=== PATIENT | female | born 1970 | race Caucasian/White ===

== ENCOUNTER → 2016-07-19 | Outpatient (CLI) | payer OTHER ==
--- NOTE | 2016-07-19 14:21 | MM ---
Reason for exam: screening (asymptomatic). Last mammogram was performed 1 year and 3 months ago. History: Patient had first child at age 33. Family history of breast cancer in maternal aunt at age 70. Benign excisional biopsy of the left breast. Physical Findings: A clinical breast exam by your physician is recommended on an annual basis and results should be correlated with mammographic findings. MG Screening Mammo w CAD Bilateral CC and MLO view(s) were taken. Prior study comparison: April 10, 2015, bilateral MG 3d diag mammo w/cad [facility]. December 02, 2013, bilateral MG diagnostic mammo w CAD [facility]. The breast tissue is heterogeneously dense. This may lower the sensitivity of mammography. Asymmetric breast tissue in the left upper outer quadrant is stable. There is no discrete abnormality. ASSESSMENT: Negative, BI-RAD 1 RECOMMENDATION: Routine screening mammogram of both breasts in 1 year.
== END | disposition home or self-care (01) ==
LOC: RADMAMWWP 11:36
PROVIDERS: ATTEND Family Medicine
DX: Z12.31 Encounter for screening mammogram for malignant neoplasm of breast (principal)

== ENCOUNTER → 2016-10-01 | Outpatient (CLI) | payer OTHER ==
--- NOTE | 2016-10-01 15:44 | XR ---
EXAMINATION TYPE: XR foot complete RT DATE OF EXAM: 10/01/2016 3:11 PM CLINICAL HISTORY: pain TECHNIQUE: Frontal, lateral and oblique images of the right foot are obtained. COMPARISON: None. FINDINGS: There is no acute fracture/dislocation evident. The joint spaces appear within normal bishop its. The overlying soft tissue appears unremarkable. IMPRESSION: There is no acute fracture or dislocation. ICD 10 NO FRACTURE, INITIAL EVALUATION
== END | disposition home or self-care (01) ==
LOC: RADXRMAIN 14:57
PROVIDERS: ATTEND Family Medicine
DX: M79.671 Pain in right foot (principal)

== ENCOUNTER → 2016-12-11 | Outpatient (CLI) | payer OTHER ==
[2016-12-11 15:31] LABS: Basophils % (A) 0 %; CH 32.2; CHCM 33.7; Eosinophils # (A) 0.1 k/uL (0-0.7); Eosinophils % (A) 1 %; HCT 47.9 % (34.0-46.0); HDW 2.22; HGB 15.6 gm/dL (11.4-16.0); Luc # (Auto) 0.04; Luc % (Auto) 0; Lymphocytes # (A) 0.7 k/uL (1.0-4.8); Lymphocytes % (A) 6 %; MCH 31.2 pg (25.0-35.0); MCHC 32.5 g/dL (31.0-37.0); MCV 95.8 fL (80.0-100.0); Monocytes # (A) 0.1 k/uL (0-1.0); Monocytes % (A) 1 %; Neutrophils # (A) 11.3 k/uL (1.3-7.7); Neutrophils % (A) 92 %; WBC 12.3 k/uL (3.8-10.6); WBC (Perox) 11.66
[2016-12-11 15:50] LABS: ALT 48 U/L (9-52); AST 32 U/L (14-36); Alkaline Phosphatase 80 U/L (38-126); Anion Gap 14 mmol/L; Blood Urea Nitrogen 8 mg/dL (7-17); Calcium 10.4 mg/dL (8.4-10.2); Carbon Dioxide 24 mmol/L (22-30); Chloride 103 mmol/L (98-107); Glucose 220 mg/dL (74-99); Non-African American GFR(MDRD) >60 (>60 ml/min/1.73 sqM); Potassium 4.3 mmol/L (3.5-5.1); Sodium 141 mmol/L (137-145); Total Bilirubin 0.7 mg/dL (0.2-1.3); Total Protein 7.6 g/dL (6.3-8.2)
[2016-12-11 16:40] LABS: Vitamin B12 >1000 pg/mL (239-931)
== END | disposition home or self-care (01) ==
LOC: LABWHC1 15:05
PROVIDERS: ATTEND Nurse Practitioner Acute Care
DX: G35 Multiple sclerosis (principal); E55.9 Vitamin D deficiency, unspecified
CPT/HCPCS: 36415; 80053; 82306; 82607; 84439; 84443; 84481; 85025

== ENCOUNTER → 2016-12-12 | Outpatient (CLI) | payer OTHER ==
--- NOTE | 2016-12-12 14:20 | MR ---
EXAMINATION TYPE: MR lumbar spine wo con DATE OF EXAM: 12/12/2016 COMPARISON: Previous exam 03/16/2014 HISTORY: Low back pain TECHNIQUE: Multiplanar, multisequence images of the lumbar spine were acquired. L1-L2: Normal disc appearance without desiccation. No herniation, protrusion or disc bulging. No ca nal stenosis is present. Foramina are patent bilaterally. L2-L3: Normal disc appearance without desiccation. No herniation, protrusion or disc bulging. No ca nal stenosis is present. Foramina are patent bilaterally. L3-L4: Minimal posterior broad-based disc bulge is stable. There is only mild anterior mass effect on the thecal sac. L4-L5: Minimal anterolisthesis grade 1 L4-5, there is associated loss of disc height and signal, endp late discogenic marrow signal change and spondylosis. Facet arthropathy with hypertrophy of the ligam entum flavum contributes to cause some mild central stenosis, encroachment on the lateral recesses tr efoil appearance of the thecal sac as on previous, foraminal encroachment is stable. L5-S1: Facet arthropathy changes present. No significant change in the appearance of the neural penny samia, circumferential extension of endplate disc complex encroaches mildly, there is no significant ce ntral stenosis or evident disc herniation. Lumbar segments are intact. No paraspinal masses are identified. Conus medullaris has a normal appe arance. There is a mild levoscoliosis present. IMPRESSION: Levoscoliosis. Findings are essentially stable. Degenerative disc disease. Spondylolisthesis L4-5. Mu ltilevel facet arthropathy.
--- NOTE | 2016-12-15 22:55 | MR ---
EXAMINATION TYPE: MR brain/cspine wo/w DATE OF EXAM: 12/12/2016 COMPARISON: 01/17/2016 and MRI 03/02/2013 HISTORY: 46-year-old female, follow-up MS, neck pain, Cervicalgia TECHNIQUE: Multiplanar, multisequence images of the brain and brainstem is performed without and with IV contras t, utilizing 18 mL intravenous MultiHance gadolinium contrast is administered intravenously. Demyeli nating disease protocol with additional Sagittal Flair sequence performed. Subsequently, multiplanar, multisequence images of the cervical spine before and after IV contrast. A dditional sagittal PD sequences utilized. FINDINGS: BRAIN: T2 Lesions Present : Yes Approximate Number of Lesions: Severe confluent burning, difficult to count number of lesions due to confluent nature of white matter change. Locations Identified : Pericallosal, Periventricular, and juxtacortical. No infratentorial lesions ar e seen. Size of Reference Lesion(s): 1. The previously mentioned reference lesion in the right frontal centrum semiovale is stable but cou ld measure greater than or less than 1.5 cm depending on the exact slice utilized. Enhancing Lesion(s) Present: No T1 Hypointense Lesion(s) Present: Yes Change from Prior: Stable. Diffusion weighted images demonstrate no evidence of a recent infarct or other diffusion abnormality. There is no worrisome extra-axial fluid collection. The ventricular system and cisternal spaces ar e normal in size and appearance. The brain volume is age appropriate. The T2 bright gliosis along the patient's previous right frontal shunt tract is again noted. Midline structures demonstrate normal morphology. The craniocervical junction appears within normal limits. Post contrast images demonstrate no abnormal enhancement. The dural venous sinuses appear pa tent. Tiny polyp or mucosal retention cyst within the inferior right maxillary sinus. Globes are intact. Back to 2012, the thickening along the posterior aspect of the right frontal calvarium with overlying protuberance of the scalp and adjacent zara hole are unchanged. CERVICAL SPINE: No craniocervical junction abnormality, predental space widening, or prevertebral soft tissue swellin g. There is facet and uncovertebral joint arthropathy throughout with levels of ligamentum flavum thicke or[place] particularly at C5-T1 levels. Degenerative grade 1 retrolisthesis at C5-C6. There is moderate multilevel degenerative disc disease with a degenerated, desiccated, invariably mil dly narrowed discs with disc osteophyte complex formation. At C2-C3, there is uncovertebral joint and facet arthropathy slightly greater towards the left withou t significant spinal canal or neuroforaminal stenosis. At C3-C4, there is posterior disc osteophyte complex with left greater than right facet and uncoverte bral joint arthropathy. Changes result in moderate left neuroforaminal stenosis with very mild narrow ing of the spinal canal. There is abutment and minimal flattening of the ventral cord without cord co mpression. At at C4-C5, there is disc osteophyte complex with mild facet and uncovertebral joint degenerative ch sharona, greater on the left. Changes mildly narrow the left neural foramen. No significant spinal canal stenosis. At C5-C6, there is grade 1 retrolisthesis and combination of broad-based disc osteophyte complex with uncovertebral joint and facet arthropathy as well as ligamentum flavum thickening. Changes resulting in moderate narrowing of the spinal canal with AP canal dimension of 7.6 mm. There is abutment of julio th the dorsal and ventral cord without germaine cord compression. Changes result in moderate left and mi ld right neuroforaminal stenosis. At C6-C7, there is broad-based disc osteophyte complex with ligamentum flavum thickening and facet an d uncovertebral joint arthropathy, greater on the right. Changes result in severe right and moderate to severe left neuroforaminal stenosis with mild to moderate spinal canal stenosis with AP canal dime nsion of 8.0 mm. There is abutment of both the dorsal and ventral cord without germaine cord compression . At C7-T1, there is small disc osteophyte complex with uncovertebral joint and facet degenerative ocampo ge. This results in mild bilateral neuroforaminal stenosis without significant spinal canal stenosis. Allowing for motion artifact, no discrete T2 cord signal abnormality. No abnormal enhancement seen wi thin the spinal canal. Sagittal PD sequence shows no clear cord edema. COMBINED IMPRESSION: BRAIN: 1. Stable severe confluent burden of supratentorial white matter change in keeping with the patient's multiple sclerosis. No clearly new lesions or enhancing lesions are seen. 2. Stable bony deformity to the patient's right frontal calvarium with adjacent zara hole. CERVICAL SPINE: 1. Combination of moderate disc/endplate degenerative change with disc osteophyte complex formation a nd hypertrophic facet and uncovertebral joint arthropathy with ligamentum flavum thickening. 2. Degenerative grade 1 retrolisthesis at C5-C6. 3. Changes cause the spinal canal to be tight particularly from C5 through C7 levels where there are moderate spinal canal stenoses with abutment of both the dorsal and ventral cord. No germaine cord compr ession or discrete cord signal change. 4. Variable neuroforaminal stenoses as outlined above. Narrowing at C5-C6 is moderate on the left and at C6/C7 is severe on the right and moderate to severe on the left.
== END | disposition home or self-care (01) ==
LOC: RADMRIMAIN 12:31
PROVIDERS: ATTEND Nurse Practitioner Acute Care
DX: M43.12 Spondylolisthesis, cervical region (principal); M48.03 Spinal stenosis, cervicothoracic region; M99.71 Connective tissue and disc stenosis of intervertebral foramina of cervical region; M24.28 Disorder of ligament, vertebrae; M47.812 Spondylosis without myelopathy or radiculopathy, cervical region; M51.36 Other intervertebral disc degeneration, lumbar region; M46.96 Unspecified inflammatory spondylopathy, lumbar region; M43.16 Spondylolisthesis, lumbar region; R90.82 White matter disease, unspecified; M95.9 Acquired deformity of musculoskeletal system, unspecified; M41.26 Other idiopathic scoliosis, lumbar region; G35 Multiple sclerosis; Z88.1 Allergy status to other antibiotic agents
CPT/HCPCS: 70553; 72148; 72156; A9577

== ENCOUNTER → 2017-04-22 | Outpatient (CLI) | payer OTHER ==
[2017-04-22 12:40] LABS: Basophils % (A) 0 %; CHCM 32.1; Eosinophils # (A) 0.6 k/uL (0-0.7); Eosinophils % (A) 8 %; HCT 48.7 % (34.0-46.0); HDW 2.24; HGB 15.3 gm/dL (11.4-16.0); Luc # (Auto) 0.14; Luc % (Auto) 2; Lymphocytes # (A) 0.7 k/uL (1.0-4.8); Lymphocytes % (A) 10 %; MCH 30.4 pg (25.0-35.0); MCHC 31.3 g/dL (31.0-37.0); Mean Platelet Volume 7.1; Monocytes # (A) 0.6 k/uL (0-1.0); Monocytes % (A) 8 %; Neutrophils % (A) 72 %; RBC 5.01 m/uL (3.80-5.40); RDW 14.5 % (11.5-15.5); WBC 6.9 k/uL (3.8-10.6); WBC (Perox) 6.67
[2017-04-22 12:58] LABS: ALT 49 U/L (9-52); AST 35 U/L (14-36); Alkaline Phosphatase 67 U/L (38-126); Anion Gap 8 mmol/L; Blood Urea Nitrogen 13 mg/dL (7-17); Calcium 9.6 mg/dL (8.4-10.2); Carbon Dioxide 32 mmol/L (22-30); Chloride 99 mmol/L (98-107); Glucose 109 mg/dL (74-99); Non-African American GFR(MDRD) >60 (>60 ml/min/1.73 sqM); Potassium 3.9 mmol/L (3.5-5.1); Sodium 139 mmol/L (137-145); Total Bilirubin 0.4 mg/dL (0.2-1.3); Total Protein 6.8 g/dL (6.3-8.2)
== END | disposition home or self-care (01) ==
LOC: LABWHC1 12:18
PROVIDERS: ATTEND Physician Assistant
DX: E55.9 Vitamin D deficiency, unspecified (principal); G35 Multiple sclerosis
CPT/HCPCS: 36415; 80053; 82306; 82607; 84439; 84443; 84481; 85025

== ENCOUNTER → 2017-05-07 | Outpatient (CLI) | payer OTHER ==
--- NOTE | 2017-05-07 15:57 | MR ---
EXAMINATION TYPE: MR thoracic spine wo/w con DATE OF EXAM: 05/07/2017 COMPARISON: MR brain and C-spine dated 12/12/2016. HISTORY: multiple sclerosis CONTRAST: Standard multiplanar, multisequence MRI departmental protocol utilizing 9.5 mL intravenous Gadavist g adolinium contrast. FINDINGS: A subcentimeter vertebral body hemangioma that is T1 and T2 hyperintense is seen of the superior aspe ct of the T7 vertebral body. Remainder of the bone marrow is unremarkable and within normal limits. T he thoracic vertebral bodies maintain normal vertebral body height and alignment. There is mild multi level degenerative disc disease of the thoracic spine. At T1-T6 there is no evidence of significant d isc disease, neuroforaminal stenosis or spinal canal stenosis. At T6-T7 there is a central subligamentous disc protrusion/herniation with 5 mm cranial migration eff acing the ventral subarachnoid space creating mild spinal canal stenosis. No abnormal spinal cord sig nal is seen posterior to this. No neural foraminal narrowing. At T7-T10 there is no evidence of significant disc disease, neuroforaminal stenosis or spinal canal s tenosis. At T10-T11 there is a left eccentric broad-based disc bulge creating mild left neural foraminal narro wing with annular tear. No spinal canal stenosis or right neural foraminal narrowing. At T11-T12 there is facet arthropathy and ligamentum flavum buckling as well as a broad-based left ec centric disc bulge creating mild left neural foraminal narrowing. Right neural foramen and spinal can al are patent. At T12-L1 there is no evidence of significant disc disease, neuroforaminal stenosis or spinal canal stenosis. Spinal cord maintains normal signal through its visualized course. No abnormal enhancement is seen th roughout the examination, specifically within the spinal cord to indicate active demyelinating plaque . IMPRESSION: 1. No abnormal enhancement or abnormal cord signal to suggest demyelinating plaque. 2. Small central disc herniation at T6-T7 with 5 mm radial migration creating mild spinal canal steno sis. 3. Left eccentric broad-based disc bulge and annular tear at T10-T11 creating mild left neural forami nal narrowing. 4. Facet arthropathy and broad-based left eccentric disc bulge at T11-T12 resulting in mild left neur al foraminal narrowing.
== END | disposition home or self-care (01) ==
LOC: RADMRIMAIN 11:15
PROVIDERS: ATTEND Nurse Practitioner Acute Care
DX: M48.04 Spinal stenosis, thoracic region (principal); M51.24 Other intervertebral disc displacement, thoracic region; M99.72 Connective tissue and disc stenosis of intervertebral foramina of thoracic region; M46.96 Unspecified inflammatory spondylopathy, lumbar region; Z88.1 Allergy status to other antibiotic agents
CPT/HCPCS: 72157; A9581

== ENCOUNTER → 2017-10-03 | Outpatient (CLI) | payer OTHER ==
[2017-10-03 11:00] LABS: Basophils % (A) 0 %; Eosinophils # (A) 0.4 k/uL (0-0.7); Eosinophils % (A) 4 %; HCT 47.9 % (34.0-46.0); HGB 15.7 gm/dL (11.4-16.0); Lymphocytes # (A) 0.7 k/uL (1.0-4.8); Lymphocytes % (A) 8 %; MCH 30.9 pg (25.0-35.0); MCHC 32.7 g/dL (31.0-37.0); MCV 94.3 fL (80.0-100.0); Mean Platelet Volume 7.4; Monocytes # (A) 0.6 k/uL (0-1.0); Monocytes % (A) 7 %; Neutrophils # (A) 6.7 k/uL (1.3-7.7); Neutrophils % (A) 79 %; Platelet Count 273 k/uL (150-450); RBC 5.08 m/uL (3.80-5.40); WBC 8.5 k/uL (3.8-10.6)
[2017-10-03 11:06] LABS: Appearance,Urine Clear (Clear); Bilirubin,Urine Negative (Negative); Blood,Urine Negative (Negative); Color,Urine Yellow; Glucose,Urine (UA) 2+ (Negative); Ketones,Urine Negative (Negative); Leukocyte Esterase,Urine Negative (Negative); Nitrite,Urine Negative (Negative); Protein,Urine Negative (Negative); Specific Gravity,Urine 1.009 (1.001-1.035); Urobilinogen,Urine <2.0 mg/dL (<2.0)
[2017-10-03 11:09] LABS: ALT 33 U/L (9-52); AST 26 U/L (14-36); Albumin 4.6 g/dL (3.5-5.0); Alkaline Phosphatase 63 U/L (38-126); Anion Gap 13 mmol/L; Blood Urea Nitrogen 16 mg/dL (7-17); Calcium 10.5 mg/dL (8.4-10.2); Carbon Dioxide 28 mmol/L (22-30); Chloride 102 mmol/L (98-107); Glucose 101 mg/dL (74-99); Potassium 4.5 mmol/L (3.5-5.1); Sodium 143 mmol/L (137-145); Total Bilirubin 0.4 mg/dL (0.2-1.3); Total Protein 7.1 g/dL (6.3-8.2)
== END | disposition home or self-care (01) ==
LOC: LABWHC1 09:56
PROVIDERS: ATTEND Nurse Practitioner Acute Care
DX: G35 Multiple sclerosis (principal); E55.9 Vitamin D deficiency, unspecified
CPT/HCPCS: 36415; 80053; 81003; 82306; 85025; 87086

== ENCOUNTER → 2017-12-24 | Outpatient (CLI) | payer OTHER ==
[2017-12-24 13:23] LABS: HCT 48.1 % (34.0-46.0); MCHC 33.4 g/dL (31.0-37.0); Mean Platelet Volume 6.7; Platelet Count 260 k/uL (150-450); RBC 5.01 m/uL (3.80-5.40); RDW 13.9 % (11.5-15.5); WBC 10.7 k/uL (3.8-10.6)
[2017-12-24 14:16] LABS: ALT 40 U/L (9-52); AST 28 U/L (14-36); Albumin 4.6 g/dL (3.5-5.0); Alkaline Phosphatase 57 U/L (38-126); Anion Gap 13 mmol/L; Blood Urea Nitrogen 13 mg/dL (7-17); Calcium 9.6 mg/dL (8.4-10.2); Carbon Dioxide 25 mmol/L (22-30); Chloride 102 mmol/L (98-107); Glucose 123 mg/dL (74-99); Potassium 4.1 mmol/L (3.5-5.1); Sodium 140 mmol/L (137-145); Total Bilirubin 0.9 mg/dL (0.2-1.3)
== END | disposition home or self-care (01) ==
LOC: LABWHC1 12:33
PROVIDERS: ATTEND Nurse Practitioner Acute Care
DX: G35 Multiple sclerosis (principal)
CPT/HCPCS: 36415; 80053; 82607; 85027

== ENCOUNTER → 2017-12-27 | Outpatient (CLI) | payer OTHER ==
--- NOTE | 2017-12-27 09:53 | MR ---
EXAMINATION TYPE: MR brain/cspine wo/w DATE OF EXAM: 12/27/2017 COMPARISON: Previous study dated 12/12/2016. HISTORY: MS TECHNIQUE: Multiplanar, multisequence images of the brain and brainstem is performed without and with IV contras t, utilizing 9.5 mL intravenous Gadavist gadolinium contrast is administered intravenously. Demyelin ating disease protocol with additional Sagittal Flair sequence performed. FINDINGS: T2 Lesions Present : Yes Approximate Number of Lesions: Greater than 20 Locations Identified : Periventricular and juxtacortical Size of Reference Lesion(s): 1. The lesions are too confluent to make accurate measurements. Enhancing Lesion(s) Present: No T1 Hypointense Lesion(s) Present: Yes Change from Prior: Slight increase Structures are unremarkable. There is a normal craniocervical junction. There is persistent right fro ntal scalp swelling and there are zara holes in the right frontal region. Echoplanar diffusion imaging is normal. There are normal vascular flow voids. The orbits are unremarkable. There is no evidence of a CP angle mass lesion. There is no mass effect, midline shift or intracranial blood. Following intravenous administration of gadolinium, I do not see evidence of abnormal enhancement. IMPRESSION: VERY MINIMAL INCREASE IN THE NUMBER OF MULTIPLE SCLEROSIS PLAQUES PRESENT BILATERALLY. CERVICAL SPINE: administration of 9.5 of Gadavist on a 1.5 diamond magnet. FINDINGS: The study is compromised by patient motion artifact. Prevertebral soft tissues are normal. There is a degenerative retrograde listhesis of C5 on C6, unchanged from previous. Alignment is other charles normal. Atlantoaxial relationships are normal. There is a normal craniocervical junction. I see no definite MS plaques. At C2-C3, no definite abnormality is seen. At C3-C4, there is left intervertebral foraminal narrowing. There is a diffuse disc displacement. The re is left-sided facet arthropathy. The uncovertebral joints are unremarkable. At C4-C5, there is mild disc space loss. There is mild, bilateral intervertebral foraminal narrowing. There is a diffuse disc displacement. There is left-sided facet arthropathy. At C5-C6, there is a retrograde listhesis of C3 5 on C6. There is bilateral intervertebral frontal na rrowing, much worse on the left than the right. There is left facet joint arthropathy. There is a mix ed spondylitic bar present posteriorly deforming the thecal sac with cord contact but without akua tanika. There is mild uncovertebral joint disease. At C6-C7, there is disc space loss. There is bilateral intervertebral foraminal narrowing. There is a mixed spondylitic bar present posteriorly deforming the thecal sac with cord contact but without def inite compression. There is left facet arthropathy. There is mild uncovertebral joint disease. At C7-T1, no definite abnormality is seen. IMPRESSION: 1. NO DEFINITE MULTIPLE SCLEROSIS PLAQUES. 2. DEGENERATIVE DISC DISEASE WITH NEXT SPONDYLOTIC BARS PRESENT AT C5-6 AND C6-7. 3. MULTILEVEL INTERVERTEBRAL FORAMINAL NARROWING. 4. FACET ARTHROPATHY AT MULTIPLE LEVELS GREATER ON THE LEFT THAN THE RIGHT.
== END | disposition home or self-care (01) ==
LOC: RADMRIMAIN 08:00
PROVIDERS: ATTEND Psychiatry & Neurology Neurology
DX: G35 Multiple sclerosis (principal); M50.30 Other cervical disc degeneration, unspecified cervical region; M47.812 Spondylosis without myelopathy or radiculopathy, cervical region; M99.71 Connective tissue and disc stenosis of intervertebral foramina of cervical region; M46.92 Unspecified inflammatory spondylopathy, cervical region; Z88.1 Allergy status to other antibiotic agents
CPT/HCPCS: 70553; 72156; A9581

== ENCOUNTER → 2018-02-19 | Outpatient (CLI) | payer OTHER ==
--- NOTE | 2018-02-19 12:07 | CT ---
EXAMINATION TYPE: CT abdomen pelvis wo con DATE OF EXAM: 02/19/2018 COMPARISON: 05/29/2017 HISTORY: 47-year-old female Lt flank pain, LLQ pain CT DLP: 1228 mGycm. Automated exposure control for dose reduction was used. TECHNIQUE: Contiguous axial scanning of the abdomen and pelvis without IV contrast. Coronal and sagit desean reconstructions performed. FINDINGS: Heart normal size without pericardial effusion. Strandy atelectasis right base. No pleural effusion. Liver enlarged measuring 20.9 cm with marked diffuse low-attenuation. Gallbladder, adrenal glands, spleen, and pancreas show no gross abnormality by noncontrast CT. Stable 4 mm focus of hyperdensity lateral mid left kidney could represent a tiny hemorrhagic cyst. Ri ght kidney within normal limits. No dilated small bowel, free fluid, or free air. No mesenteric or retroperitoneal lymphadenopathy. Normal appendix. Mild stool burden there is focal strandy density along the left lateral aspect of the proximal sigmoi d with central fat density, reference axial image 127 and coronal image 34. Bladder urine distended. Uterus and ovaries are visualized. No abnormal fluid collection in the pelvi s or pelvic lymphadenopathy. Bones: Mild degenerative spurring of the hips. Facet arthropathy lower lumbar spine. No osseous destr uctive process. IMPRESSION: 1. Small ovoid area of fat stranding along the left lateral aspect of the proximal sigmoid. If patie nt's symptoms localize here, this could represent epiploic appendagitis. 2. Hepatomegaly (20.9 cm) with marked hepatic steatosis.
== END | disposition home or self-care (01) ==
LOC: RADCTMAIN 08:01
PROVIDERS: ATTEND Family Medicine
DX: K76.0 Fatty (change of) liver, not elsewhere classified (principal); R16.0 Hepatomegaly, not elsewhere classified
CPT/HCPCS: 74176

== ENCOUNTER → 2018-04-09 | Outpatient (CLI) | payer OTHER ==
[2018-04-09 13:17] LABS: Appearance,Urine Clear (Clear); Bilirubin,Urine Negative (Negative); Blood,Urine Negative (Negative); Color,Urine Colorless; Glucose,Urine (UA) Negative (Negative); Ketones,Urine Negative (Negative); Leukocyte Esterase,Urine Negative (Negative); Nitrite,Urine Negative (Negative); PH, Urine 5.5 (5.0-8.0); Protein,Urine Negative (Negative); Specific Gravity,Urine 1.002 (1.001-1.035); Urobilinogen,Urine <2.0 mg/dL (<2.0)
[2018-04-09 13:31] LABS: Basophils # (A) 0.1 k/uL (0-0.2); Basophils % (A) 0 %; Eosinophils # (A) 0.7 k/uL (0-0.7); Eosinophils % (A) 5 %; HCT 42.7 % (34.0-46.0); HGB 13.4 gm/dL (11.4-16.0); Lymphocytes # (A) 3.3 k/uL (1.0-4.8); Lymphocytes % (A) 24 %; MCH 30.6 pg (25.0-35.0); MCHC 31.4 g/dL (31.0-37.0); MCV 97.4 fL (80.0-100.0); Mean Platelet Volume 6.3; Monocytes # (A) 0.6 k/uL (0-1.0); Monocytes % (A) 4 %; Neutrophils # (A) 8.8 k/uL (1.3-7.7); Neutrophils % (A) 64 %; Platelet Count 313 k/uL (150-450); RBC 4.39 m/uL (3.80-5.40); RDW 15.5 % (11.5-15.5); WBC 13.8 k/uL (3.8-10.6)
[2018-04-09 19:03] LABS: Vitamin D 25 Hydroxy 27.6 ng/mL (30.0-100.0)
[2018-04-09 19:04] LABS: Albumin 4.8 g/dL (3.80-4.90); Anion Gap 5.1 mmol/L (4.00-12.00); Calcium 9.4 mg/dL (8.7-10.3); Carbon Dioxide 26.9 mmol/L (21.6-31.8); Globulin 1.6 g/dL (2.1-3.7); Potassium 4.1 mmol/L (3.5-5.5); Total Bilirubin 0.6 mg/dL (0.2-1.2); Total Protein 6.4 g/dL (6.2-8.2)
== END | disposition home or self-care (01) ==
LOC: LABWHC1 12:23
PROVIDERS: ATTEND Nurse Practitioner Acute Care
DX: E55.9 Vitamin D deficiency, unspecified (principal); R53.83 Other fatigue; R39.81 Functional urinary incontinence; Z51.81 Encounter for therapeutic drug level monitoring
CPT/HCPCS: 36415; 80053; 81003; 82306; 82607; 84207; 85025

== ENCOUNTER → 2018-04-20 | Outpatient (CLI) | payer OTHER | LOC: LABWHC1 12:19 | PROVIDERS: ATTEND Nurse Practitioner Acute Care | DX: G35 Multiple sclerosis (principal) | CPT/HCPCS: 36415 ==

== ENCOUNTER → 2018-05-28 | Outpatient (CLI) | payer OTHER | END | disposition home or self-care (01) | LOC: LABWHC1 15:36 | PROVIDERS: ATTEND Psychiatry & Neurology Neurology | DX: Z51.81 Encounter for therapeutic drug level monitoring (principal) | CPT/HCPCS: 36415; 82565; 84520 ==

== ENCOUNTER 2018-06-05 19:06 | Emergency (ER) | payer OTHER ==
[2018-06-05 19:26] VITALS: BP 147/88; PULSE 97; RESP 16; TEMP 97.9
[2018-06-05] MEDS ORDERED: KETOROLAC 30 MG/ML 1 ML VIAL IM STA (20:19)
--- NOTE | 2018-06-05 21:09 | XR ---
EXAMINATION TYPE: XR ankle complete LT DATE OF EXAM: 06/05/2018 COMPARISON: NONE HISTORY: Ankle pain TECHNIQUE: 3 views FINDINGS: Ankle mortise is anatomic. I see no fracture nor dislocation. Joint spaces are normal. IMPRESSION: Negative left ankle exam.
--- NOTE | 2018-06-05 21:16 | XR ---
EXAMINATION TYPE: XR foot complete LT DATE OF EXAM: 06/05/2018 COMPARISON: NONE HISTORY: Foot pain TECHNIQUE: 3 views FINDINGS: Metatarsals are intact. I see no fracture nor dislocation. Joint spaces are normal. IMPRESSION: Negative left foot exam. Previous surgery noted apparently at the first metatarsal head.
[2018-06-05] MEDS ORDERED: FAMOTIDINE 20 MG TAB PO STA (21:26)
--- NOTE | 2018-06-05 21:28 | XR ---
EXAMINATION TYPE: XR chest 2V DATE OF EXAM: 06/05/2018 COMPARISON: 04/18/2017 HISTORY: Pain TECHNIQUE: Frontal and lateral views of the chest are obtained. FINDINGS: Heart and mediastinum are normal. Lungs are clear. Diaphragm is normal. Bony thorax appear s normal. IMPRESSION: Normal chest. No change.
--- NOTE | 2018-06-05 21:32 | CT ---
EXAMINATION TYPE: CT thor lumbar spine wo con DATE OF EXAM: 06/05/2018 COMPARISON: None HISTORY: back pain following fall CT DLP: 1625.6 mGycm Automated exposure control for dose reduction was used. FINDINGS: Thoracic and lumbar vertebra have fairly normal alignment. There is fibrolinear anterior subluxation of L4 in relation L5. There is no compression fracture. There is no spondylolysis. I see no focal bon e destruction. There is no thoracic paraspinal mass. Sacroiliac joints appear normal. IMPRESSION: SPONDYLOTIC CHANGES IN THE THORACIC AND LUMBAR SPINE. DEGENERATIVE FIRST-DEGREE L4-5 SPONDYLOLISTHESI S. NO FRACTURE SEEN. Lumbar spine unchanged compared to 02/19/2018 CT scan.
--- NOTE | 2018-06-05 21:42 | ED ---
Fall HPI - General Chief Complaint: Fall Stated Complaint: FALL DOWN STAIRS LEFT FOOT INJURY Source: patient Mode of arrival: ambulatory - History of Present Illness Initial Comments: 37-year-old feels past medical history of MS presenting today for chief complaint of fall. Patient states that she was wearing baggy pajama pants when she caught her foot under them causing her to slip while going down the stairs. She states she fell onto one step on left slide then slid down on her left side catching her left foot, she states she slid down 8 steps total. Patient admitting to immediate left ankle pain. Patient does admit to chronic low back pain stating that it appears to be worsened by the fall. Patient states is localized to the lower thoracic lumbar spine when pointing to the area of pain. Patient denies any ankle swelling or ecchymosis. She does admit to small abrasion on the left anterior chest. Patient denies any head injury, neck pain , LOC, chest pain, pain with deep inspiration dysuria or dyspnea on exertion numbness, tingling, loss sensation of the left lower extremity, loss of bowel bladder control, urinary retention, numbness of LE, vaginal numbness. Denies head injury or injury to any other extremity. Patient denies any knee pain or upper extremity pain. Patient was concerned about fracture of the left ankle and present for evaluation. Pt is able to fully weight-bear upon arrival ambulate without difficulty. Remainder of ROS (-). Upon arrival VS within acceptable limits. - Related Data Home Medications Medication Instructions Recorded Confirmed Cholecalciferol [Vitamin D3] 5,000 units PO DAILY 04/26/14 04/18/17 Cyanocobalamin [Vitamin B-12] 3,000 mcg PO DAILY 04/26/14 04/18/17 Pregabalin [Lyrica] 150 mg PO BID 10/05/14 04/18/17 clonazePAM [KlonoPIN] 0.5 mg PO HS 01/11/15 04/18/17 Fingolimod HCl [Gilenya] 0.5 mg PO DAILY 05/05/16 04/18/17 Carbamide Peroxide [Murine Ear 1 drop BOTH EARS DAILY 08/26/16 04/18/17 Drops] Clobetasol Propionate/Emoll 1 applic TOPICAL BID 08/26/16 04/18/17 [Clobetasol Emulsion 0.05% Foam] Clotrimazole [Clotrimazole 1%] 1 applic TOPICAL DAILY 08/26/16 04/18/17 Erythromycin Topical [Erythromycin 1 applic TOPICAL DAILY 08/26/16 04/18/17 2% Topical Soln] Escitalopram [Lexapro] 20 mg PO DAILY 08/26/16 04/18/17 Modafinil [Provigil] 100 mg PO DAILY 08/26/16 04/18/17 Montelukast [Singulair] 10 mg PO DAILY 08/26/16 04/18/17 Pentoxifylline 400 mg PO TID 08/26/16 04/18/17 Primidone [Mysoline] 50 mg PO BID 08/26/16 04/18/17 metFORMIN HCL [Glucophage] 850 mg PO DAILY 08/26/16 04/18/17 Atorvastatin [Lipitor] 10 mg PO DAILY 04/18/17 04/18/17 Neuro-B 800 800 mg PO BID 04/18/17 04/18/17 Previous Rx's Medication Instructions Recorded Levofloxacin [Levaquin] 500 mg PO DAILY #10 tab 04/18/17 Ibuprofen 800 mg PO Q8H PRN 7 Days #21 tablet 06/05/18 Allergies Allergy/AdvReac Type Severity Reaction Status Date / Time hydrocodone AdvReac Severe Itching Verified 06/05/18 19:26 adhesive AdvReac skin Verified 06/05/18 19:26 irritation erythromycin base AdvReac Nausea & Verified 06/05/18 19:26 [Erythromycin Base] Vomiting Review of Systems ROS Statement: Those systems with pertinent positive or pertinent negative responses have been documented in the HPI. ROS Other: All systems not noted in ROS Statement are negative. Constitutional: Denies: fever, chills, night sweats Respiratory: Denies: cough, dyspnea Cardiovascular: Denies: chest pain, syncope Gastrointestinal: Denies: abdominal pain, nausea, vomiting, diarrhea Genitourinary: Denies: urgency, dysuria, frequency, hematuria Musculoskeletal: Reports: back pain, arthralgia Skin: Denies: rash, lesions Neurological: Denies: headache, weakness, numbness, paresthesias, confusion Past Medical History Past Medical History: Musculoskeletal Disorder, Neurologic Disorder Additional Past Medical History / Comment(s): RECURRANT CELLUTITS/ABSCESS LEFT BREAST; KIDNEY STONES,multiple sclerosis, RT HIP IMPINGEMENT SYNDROME,CHRONIC PAIN SYNDROME, MIGRAINES, History of Any Multi-Drug Resistant Organisms: None Reported Past Surgical History: Breast Surgery, Orthopedic Surgery Additional Past Surgical History / Comment(s): 1991 BENIGN CYST DRAINED FROM BRAIN, D&C X2, LEFT HAND TENDON REPAIR,ATHROSCOPIC SURG RT HIP/BUNIONECTOMY, drainage of abscess left breast x 4. Past Anesthesia/Blood Transfusion Reactions: No Reported Reaction Past Psychological History: No Psychological Hx Reported Smoking Status: Current every day smoker Past Alcohol Use History: Rare Past Drug Use History: None Reported - Past Family History Father Family Medical History: Coronary Artery Disease (CAD) Additional Family Medical History / Comment(s): stents and cabg Mother Family Medical History: Dementia, Osteoarthritis (OA) General Exam - General Exam Comments Initial Comments: General: The patient is awake and alert, in no distress, and does not appear acutely ill. Eye: +3 mm pupils are equal, round and reactive to light, extra-ocular movements are intact. No nystagmus. There is normal conjunctiva bilaterally. No signs of icterus. Ears, nose, mouth and throat: There are moist mucous membranes and no oral lesions. No villarreal raccon signs. No pain to palpation of the cervical spine midline. Full ROM at C-spine. Neck: The neck is supple, there is no tenderness or JVD. Cardiovascular: There is a regular rate and rhythm. No murmur, rub or gallop is appreciated. Respiratory: Lungs are clear to auscultation, respirations are non-labored, breath sounds are equal. No wheezes, stridor, rales, or rhonchi. Present in all lung griffiths. Gastrointestinal: Soft, non-distended, non-tender abdomen without masses or organomegaly noted. There is no rebound or guarding present. Bowel sounds are unremarkable. Musculoskeletal: Upon inspection of the left ankle there is no gross deformity , no ecchymosis or soft tissue swelling. Patient is able to fully flex and extend internal & externally rotate at the left ankle. Patient has full sensation of the lower extremities equally bilaterally. Dorslis pedis pulses are +2 equally bilaterally. Strength 5/5. Sensation intact. Pulses equal bilaterally 2+. Very smal superifical abrasion of left lateral chest wall. No hematoma, creptius to palpation. Patient is able to fully range this thoracic and lumbar spine, patient does admit to midline tenderness to patient of the lower thoracic beginning of the lumbar spine midline as well as paravertebrally. Neurological: A&O x 3. CN II-XII intact, There are no obvious motor or sensory deficits. Coordination appears grossly intact. Speech is normal. Skin: Skin is warm and dry and no rashes or lesions are noted. Psychiatric: Cooperative, appropriate mood & affect, normal judgment. Limitations: no limitations Course Vital Signs 06/05/18 19:21 Temperature 97.9 F Pulse Rate 97 Respiratory 16 Rate Blood Pressure 147/88 O2 Sat by Pulse 96 Oximetry Medical Decision Making - Medical Decision Making No acute findings of CT of thoracic and lumbar spine, CXR (-)-no PTX or noted rib abnormalities. Breathing sounds present and clear. No signs or symptoms concerning for cauda equina syndrome. Ankle examination noted above. Patient neurovascularly intact. Compartments soft and compressible. X-ray negative for acute fracture. Patient is able to fully weight-bear. No clinical findings concerning for significant ligamentous or tendinous injury of the left ankle at this time, however I did advise patient to follow-up with orthopedic surgery for any persistent symptoms. At this time I feel patient is stable for discharge with primary care follow-up. Patient states they get home medications for pain management. Pt admitted to improvement of pain with administration of pain medication in ED. patient was agreeable discharge, I'll return parameters discussed at length prior to patient's discharge she verbalized nursing. Case discussed with attending provider who agreed impression and plan. Patient discharged in stable condition after discussing case with Dr. Hameed. Disposition Clinical Impression: Fall, Left foot pain, Low back pain Disposition: HOME SELF-CARE Condition: Good Instructions: R.I.C.E. Treatment (ED) Additional Instructions: Please use medication as discussed. Please follow-up with family doctor in the next 2 days, please seek orthopedic referral if symptoms persist. Please return to emergency room if the symptoms increase or worsen or for any other concerns. Prescriptions: Ibuprofen 800 mg PO Q8H PRN 7 Days #21 tablet PRN Reason: Pain Is patient prescribed a controlled substance at d/c from ED?: No Referrals: Lauryn Rey DO [Primary Care Provider] - 1-2 days Time of Disposition: 21:42
== END 2018-06-05 22:00 | disposition home or self-care (01) ==
LOC: EC 19:06
DX: M79.672 Pain in left foot (principal); M54.5 Low back pain; S20.312A Abrasion of left front wall of thorax, initial encounter; G89.29 Other chronic pain; M25.572 Pain in left ankle and joints of left foot; G35 Multiple sclerosis; F17.200 Nicotine dependence, unspecified, uncomplicated; Z88.1 Allergy status to other antibiotic agents; Z88.5 Allergy status to narcotic agent; Z91.048 Other nonmedicinal substance allergy status; Z79.52 Long term (current) use of systemic steroids; Z79.84 Long term (current) use of oral hypoglycemic drugs; Z79.899 Other long term (current) drug therapy; Z86.69 Personal history of other diseases of the nervous system and sense organs; W10.9XXA Fall (on) (from) unspecified stairs and steps, initial encounter; Y92.009 Unspecified place in unspecified non-institutional (private) residence as the place of occurrence of the external cause
CPT/HCPCS: 99284; 96372; 73610; 73630; 71046; 72128; 72131; J1885

== ENCOUNTER → 2018-08-19 | Outpatient (CLI) | payer OTHER ==
[2018-08-19 18:13] LABS: Basophils # (A) 0.1 k/uL (0-0.2); Basophils % (A) 1 %; Eosinophils # (A) 1.2 k/uL (0-0.7); Eosinophils % (A) 10 %; HCT 43.2 % (34.0-46.0); HGB 14.4 gm/dL (11.4-16.0); Lymphocytes # (A) 3.2 k/uL (1.0-4.8); Lymphocytes % (A) 27 %; MCH 31.4 pg (25.0-35.0); MCHC 33.2 g/dL (31.0-37.0); MCV 94.5 fL (80.0-100.0); Mean Platelet Volume 6.6; Monocytes # (A) 0.6 k/uL (0-1.0); Monocytes % (A) 5 %; Neutrophils # (A) 6.4 k/uL (1.3-7.7); Neutrophils % (A) 55 %; Platelet Count 301 k/uL (150-450); RBC 4.57 m/uL (3.80-5.40); RDW 14.3 % (11.5-15.5); WBC 11.8 k/uL (3.8-10.6)
[2018-08-20 00:16] LABS: Vitamin D 25 Hydroxy 41.2 ng/mL (30.0-100.0)
[2018-08-20 01:41] LABS: Albumin 4.7 g/dL (3.80-4.90); Albumin/Globulin Ratio 2.61 (1.60-3.17); Calcium 10.5 mg/dL (8.7-10.3); Globulin 1.8 g/dL (1.6-3.3); Potassium 3.8 mmol/L (3.5-5.5); Total Bilirubin 0.8 mg/dL (0.2-1.2); Total Protein 6.5 g/dL (6.2-8.2)
== END | disposition home or self-care (01) ==
LOC: LABWHC1 15:47
PROVIDERS: ATTEND Psychiatry & Neurology Neurology
DX: E55.9 Vitamin D deficiency, unspecified (principal); R53.82 Chronic fatigue, unspecified; G35 Multiple sclerosis
CPT/HCPCS: 36415; 80053; 82306; 82607; 85025

== ENCOUNTER → 2018-12-09 | Outpatient (CLI) | payer OTHER ==
[2018-12-09 12:27] LABS: HCT 47.7 % (34.0-46.0); HGB 15.2 gm/dL (11.4-16.0); MCH 29.3 pg (25.0-35.0); MCV 91.6 fL (80.0-100.0); Mean Platelet Volume 6.6; Platelet Count 348 k/uL (150-450); RBC 5.21 m/uL (3.80-5.40); RDW 14.4 % (11.5-15.5); WBC 25.2 k/uL (3.8-10.6)
[2018-12-09 13:34] LABS: Band Neutrophils % 1 %; Eosinophils # (M) 0.76 k/uL (0-0.7); Metamyelocytes % 2 %; Monocytes # (M) 0.76 k/uL (0-1.0); Neutrophils % (M) 70 %; Nucleated Red Blood Cells 0 /100 WBC (0-0); Total Cells Counted 200
[2018-12-09 13:35] LABS: Anisocytosis (M) Present; Poikilocytosis (M) Present
[2018-12-09 20:02] LABS: African American GFR (CKD) 99.6 (60.0-200.0); Albumin 4.5 g/dL (3.80-4.90); Anion Gap 11.9 mmol/L (4.00-12.00); BUN/Creat Ratio 27.5 Ratio (12.00-20.00); Calcium 9.9 mg/dL (8.7-10.3); Carbon Dioxide 26.1 mmol/L (21.6-31.8); Globulin 1.5 g/dL (1.6-3.3); Potassium 4.1 mmol/L (3.5-5.5); Total Bilirubin 0.5 mg/dL (0.2-1.2)
== END | disposition home or self-care (01) ==
LOC: LABWHC1 11:17
PROVIDERS: ATTEND Nurse Practitioner Acute Care
DX: Z51.81 Encounter for therapeutic drug level monitoring (principal)
CPT/HCPCS: 36415; 80053; 85025

== ENCOUNTER 2019-05-27 09:21 | Emergency (ER) | payer OTHER ==
[2019-05-27 09:37] VITALS: TEMP 97.9
[2019-05-27] MEDS: methylPREDNISolone SOD SUCCI 125 MG/2 ML VIAL IM ONE (10:28)
[2019-05-27] MEDS: ONDANSETRON ODT 4 MG TAB PO STA (10:28)
[2019-05-27] MEDS: IPRATROPIUM-ALBUTEROL 3 ML NEB INHALATION STA (10:36)
--- NOTE | 2019-05-27 10:38 | ED ---
URI HPI - General Chief Complaint: Upper Respiratory Infection Stated Complaint: cough Time Seen by Provider: 05/27/19 10:08 Source: patient, family, RN notes reviewed Mode of arrival: ambulatory Limitations: no limitations - History of Present Illness Initial Comments: 48-year-old female presents emergency Department chief complaint of cough congestion sore throat sinus pressure for the last 3-4 weeks. Patient states that she was on a course antibiotics and steroids initially states it did not help much. Patient states that she has been getting worse recently. She is a daily smoker. She has not used any [id number] cough and cold medications. Denies any current chest pain or palpitations. She does have underlying COPD she has Symbicort inappropriately inhaler. Patient denies any neck pain or neck stiffness. Patient denies any other complaints. - Related Data Home Medications Medication Instructions Recorded Confirmed Cholecalciferol [Vitamin D3] 2,000 units PO DAILY 04/26/14 05/27/19 Montelukast [Singulair] 10 mg PO HS 08/26/16 05/27/19 metFORMIN HCL [Glucophage] 850 mg PO BID 08/26/16 05/27/19 sitaGLIPtin [Januvia] 100 mg PO DAILY 06/23/18 05/27/19 Aspirin 81 mg PO DAILY 06/24/18 05/27/19 Colestipol HCl 1 gm PO BID PRN 06/24/18 05/27/19 Propranolol [Inderal] 40 mg PO TID 06/24/18 05/27/19 Ascorbic Acid [Vitamin C] 500 mg PO BID 07/02/18 05/27/19 tiZANidine [Zanaflex] 4 mg PO BID 07/02/18 05/27/19 ARIPiprazole [Abilify] 2 mg PO HS 05/27/19 05/27/19 Atorvastatin [Lipitor] 40 mg PO DAILY 05/27/19 05/27/19 Betamethasone Dipropionate 1 applic TOPICAL DAILY 05/27/19 05/27/19 [Diprolene AF 0.05% Cream] Butalb/APAP/Caff 50-325-40Mg 1 tab PO Q8H PRN 05/27/19 05/27/19 [Fioricet 50-325-40] Cetirizine HCl [Zyrtec] 10 mg PO DAILY 05/27/19 05/27/19 DULoxetine HCL [Cymbalta] 60 mg PO BID 05/27/19 05/27/19 Dalfampridine [Dalfampridine ER] 10 mg PO DAILY 05/27/19 05/27/19 Fluticasone Propionate [Flonase 1 spray EA NOSTRIL DAILY PRN 05/27/19 05/27/19 Allergy Relief] Modafinil [Provigil] 200 mg PO DAILY 05/27/19 05/27/19 Pregabalin [Lyrica] 150 mg PO BID 05/27/19 05/27/19 QUEtiapine [SEROquel] 50 mg PO HS 05/27/19 05/27/19 amLODIPine [Norvasc] 5 mg PO HS 05/27/19 05/27/19 Previous Rx's Medication Instructions Recorded Levofloxacin [Levaquin] 500 mg PO DAILY #10 tab 05/27/19 predniSONE 50 mg PO DAILY #5 tab 05/27/19 Allergies Allergy/AdvReac Type Severity Reaction Status Date / Time hydrocodone Allergy Severe Itching Verified 05/27/19 10:54 adhesive AdvReac skin Verified 05/27/19 10:54 irritation erythromycin base AdvReac Nausea & Verified 05/27/19 10:54 [Erythromycin Base] Vomiting Review of Systems ROS Statement: Those systems with pertinent positive or pertinent negative responses have been documented in the HPI. ROS Other: All systems not noted in ROS Statement are negative. Past Medical History Past Medical History: Musculoskeletal Disorder, Neurologic Disorder Additional Past Medical History / Comment(s): RECURRANT CELLUTITS/ABSCESS LEFT BREAST; KIDNEY STONES,multiple sclerosis, RT HIP IMPINGEMENT SYNDROME,CHRONIC PAIN SYNDROME, MIGRAINES, History of Any Multi-Drug Resistant Organisms: None Reported Past Surgical History: Breast Surgery, Orthopedic Surgery Additional Past Surgical History / Comment(s): 1990 BENIGN CYST DRAINED FROM BRAIN, D&C X2, LEFT HAND TENDON REPAIR,ATHROSCOPIC SURG RT HIP/BUNIONECTOMY, drainage of abscess left breast x 4. Past Anesthesia/Blood Transfusion Reactions: No Reported Reaction Past Psychological History: Anxiety Smoking Status: Current every day smoker Past Alcohol Use History: Rare Past Drug Use History: Marijuana - Past Family History Father Family Medical History: Coronary Artery Disease (CAD) Additional Family Medical History / Comment(s): stents and cabg Mother Family Medical History: Dementia, Osteoarthritis (OA) General Exam Limitations: no limitations General appearance: alert, in no apparent distress Head exam: Present: atraumatic, normocephalic, normal inspection Eye exam: Present: normal appearance, PERRL, EOMI. Absent: scleral icterus, conjunctival injection, periorbital swelling ENT exam: Present: normal exam, normal oropharynx, mucous membranes moist, TM's normal bilaterally Neck exam: Present: normal inspection. Absent: tenderness, meningismus, lymphadenopathy Respiratory exam: Present: wheezes, decreased breath sounds. Absent: normal lung sounds bilaterally, respiratory distress, rales, rhonchi, stridor Cardiovascular Exam: Present: regular rate, normal rhythm, normal heart sounds. Absent: systolic murmur, diastolic murmur, rubs, gallop, clicks GI/Abdominal exam: Present: soft, normal bowel sounds. Absent: distended, tenderness, guarding, rebound, rigid Neurological exam: Present: alert, oriented X3, CN II-XII intact, reflexes normal. Absent: motor sensory deficit Course Vital Signs 05/27/19 05/27/19 05/27/19 09:34 10:17 10:36 Temperature 97.9 F Pulse Rate 81 80 Respiratory 20 20 Rate Blood Pressure 119/72 O2 Sat by Pulse 94 L Oximetry 05/27/19 10:45 Temperature Pulse Rate 76 Respiratory Rate Blood Pressure O2 Sat by Pulse Oximetry Medical Decision Making - Medical Decision Making Chest x-ray shows evidence of bronchitis. Patient is a daily smoker.I counseled the patient for smoking cessation for greater than 3 minutes patient will be discharged with antibiotics, steroids with close follow-up with PCP. Disposition Clinical Impression: Sinusitis, Bronchitis Disposition: HOME SELF-CARE Condition: Stable Instructions (If sedation given, give patient instructions): Upper Respiratory Infection (ED) Additional Instructions: Please return to the Emergency Department if symptoms worsen or any other concerns. Prescriptions: Levofloxacin [Levaquin] 500 mg PO DAILY #10 tab predniSONE 50 mg PO DAILY #5 tab Is patient prescribed a controlled substance at d/c from ED?: No Referrals: Lauryn Rey DO [Primary Care Provider] - 1-2 days Time of Disposition: 11:35
--- NOTE | 2019-05-27 11:30 | XR ---
EXAMINATION TYPE: XR chest 2V DATE OF EXAM: 05/27/2019 COMPARISON: Prior chest x-ray 06/05/2018 HISTORY: Cough, difficulty breathing TECHNIQUE: Frontal and lateral views of the chest are obtained. FINDINGS: Patient is rotated. There is no focal air space opacity, pleural effusion, or pneumothorax seen. The cardiac silhouette size is within normal limits. The osseous structures are intact. Ther e are prominent lung volumes. There is some bronchial wall thickening. IMPRESSION: Correlate for bronchitis, reactive airways disease.
[2019-05-27 11:43] VITALS: BP 120/82; PULSE 78; RESP 18
== END 2019-05-27 11:40 | disposition home or self-care (01) ==
LOC: EC 09:21
DX: J20.9 Acute bronchitis, unspecified (principal); J32.9 Chronic sinusitis, unspecified; F41.9 Anxiety disorder, unspecified; G89.4 Chronic pain syndrome; G35 Multiple sclerosis; J44.9 Chronic obstructive pulmonary disease, unspecified; F17.200 Nicotine dependence, unspecified, uncomplicated; Z79.82 Long term (current) use of aspirin; Z79.899 Other long term (current) drug therapy; Z71.6 Tobacco abuse counseling; Z88.5 Allergy status to narcotic agent; Z88.1 Allergy status to other antibiotic agents; Z91.048 Other nonmedicinal substance allergy status
CPT/HCPCS: 94640; 71046; 99283; 96372; J2930

== ENCOUNTER → 2019-11-23 | Outpatient (CLI) | payer OTHER ==
[2019-11-23 12:07] LABS: Basophils # (A) 0.1 k/uL (0-0.2); Basophils % (A) 1 %; Eosinophils # (A) 1.6 k/uL (0-0.7); Eosinophils % (A) 12 %; HCT 44.5 % (34.0-46.0); HGB 14.7 gm/dL (11.4-16.0); Lymphocytes # (A) 3.5 k/uL (1.0-4.8); Lymphocytes % (A) 25 %; MCH 30.9 pg (25.0-35.0); MCHC 33.1 g/dL (31.0-37.0); MCV 93.3 fL (80.0-100.0); Mean Platelet Volume 7.5; Monocytes # (A) 0.7 k/uL (0-1.0); Monocytes % (A) 5 %; Neutrophils # (A) 7.5 k/uL (1.3-7.7); Neutrophils % (A) 55 %; Platelet Count 298 k/uL (150-450); RBC 4.77 m/uL (3.80-5.40); WBC 13.7 k/uL (3.8-10.6)
[2019-11-23 19:41] LABS: African American GFR (CKD) 116.3 (60.0-200.0); Albumin 4.7 g/dL (3.80-4.90); Albumin/Globulin Ratio 2.35 (1.60-3.17); Anion Gap 10.1 mmol/L (4.00-12.00); BUN/Creat Ratio 12.86 Ratio (12.00-20.00); Calcium 9.6 mg/dL (8.7-10.3); Carbon Dioxide 24.9 mmol/L (21.6-31.8); Non-African American GFR(CKD) 100.3 (60.0-200.0); Potassium 4.5 mmol/L (3.5-5.5); Total Bilirubin 0.5 mg/dL (0.3-1.2); Total Protein 6.7 g/dL (6.2-8.2)
== END | disposition home or self-care (01) ==
LOC: LABWHC1 10:17
PROVIDERS: ATTEND Nurse Practitioner Acute Care
DX: G35 Multiple sclerosis (principal); E55.9 Vitamin D deficiency, unspecified; R53.82 Chronic fatigue, unspecified
CPT/HCPCS: 36415; 80053; 82306; 82607; 84207; 85025

== ENCOUNTER 2020-11-20 15:00 | Inpatient (IN) | payer OTHER ==
[2020-11-20 17:45] LABS: ALT 26 U/L (4-34); AST 32 U/L (14-36); African American GFR (CKD) >90 (>60 ml/min/1.73 sqM); Albumin 4.8 g/dL (3.5-5.0); Alkaline Phosphatase 81 U/L (38-126); Anion Gap 10 mmol/L; Blood Urea Nitrogen 8 mg/dL (7-17); Calcium 9.8 mg/dL (8.4-10.2); Carbon Dioxide 26 mmol/L (22-30); Chloride 101 mmol/L (98-107); Glucose 85 mg/dL (74-99); Non-African American GFR(CKD) 85 (>60 ml/min/1.73 sqM); Potassium 3.7 mmol/L (3.5-5.1); Sodium 137 mmol/L (137-145); Total Bilirubin 1.2 mg/dL (0.2-1.3)
[2020-11-20 18:00] LABS: Basophils # (A) 0.1 k/uL (0-0.2); Basophils % (A) 1 %; Eosinophils # (A) 1.6 k/uL (0-0.7); Eosinophils % (A) 8 %; HCT 47.4 % (34.0-46.0); HGB 15.6 gm/dL (11.4-16.0); Lymphocytes # (A) 4.6 k/uL (1.0-4.8); Lymphocytes % (A) 23 %; MCHC 32.9 g/dL (31.0-37.0); MCV 91.1 fL (80.0-100.0); Mean Platelet Volume 7.4; Monocytes % (A) 5 %; Neutrophils % (A) 61 %; Platelet Count 292 k/uL (150-450); RBC 5.21 m/uL (3.80-5.40); RDW 14.3 % (11.5-15.5); WBC 19.6 k/uL (3.8-10.6)
[2020-11-20] MEDS: SODIUM CHLORIDE 0.9% 1,000 ML IV SCH (18:06)
--- NOTE | 2020-11-20 18:32 | ED ---
Skin/Abscess/FB HPI - General Chief complaint: Skin/Abscess/Foreign Body Stated complaint: Breast pain Source: patient Mode of arrival: ambulatory Limitations: no limitations - History of Present Illness Initial comments: Manjula is a pleasant 50-year-old female who has a history of recurrent breast abscesses, these beginning 2014 and she was treated with antibiotics and surgic al intervention multiple 2014. Patient is been doing well for the past 3 years however over the past 2 days she's noted purulent drainage from her nipple and breast pain consistent with previous abscess. Patient denies any fevers chills nausea or vomiting. Patient reports he symptoms are identical to previous breast abscess. - Related Data Home Medications Medication Instructions Recorded Confirmed Montelukast [Singulair] 10 mg PO HS 08/26/16 11/20/20 Aspirin 81 mg PO DAILY 06/24/18 11/20/20 Propranolol [Inderal] 40 mg PO TID 06/24/18 11/20/20 Ascorbic Acid [Vitamin C] 500 mg PO BID 07/02/18 11/20/20 tiZANidine [Zanaflex] 4 mg PO BID PRN 07/02/18 11/20/20 Atorvastatin [Lipitor] 40 mg PO DAILY 05/27/19 11/20/20 Betamethasone Dipropionate 1 applic TOPICAL DAILY PRN 05/27/19 11/20/20 [Diprolene AF 0.05% Cream] Cetirizine HCl [Zyrtec] 10 mg PO DAILY 05/27/19 11/20/20 Dalfampridine [Dalfampridine ER] 10 mg PO DAILY 05/27/19 11/20/20 Pregabalin [Lyrica] 150 mg PO TID 05/27/19 11/20/20 modafiniL [Provigil] 200 mg PO DAILY 05/27/19 11/20/20 Cholecalciferol [Vitamin D3 (25 50 mcg PO DAILY 11/20/20 11/20/20 Mcg = 1000 Iu)] Clotrimazole Cream [Lotrimin Cream] 1 applic TOPICAL DAILY 11/20/20 11/20/20 DULoxetine HCL [Cymbalta] 30 mg PO DAILY 11/20/20 11/20/20 FLUoxetine HCL [PROzac] 20 mg PO DAILY 11/20/20 11/20/20 Meloxicam 7.5 mg PO DAILY PRN 11/20/20 11/20/20 Pentoxifylline 400 mg PO TID 11/20/20 11/20/20 QUEtiapine FUMARATE [SEROquel XR] 150 mg PO HS 11/20/20 11/20/20 Tysabri Infusion 1 dose IV QMONTHLY 11/20/20 11/20/20 Umeclidinium [place] [Incruse 1 puff INHALATION RT-DAILY 11/20/20 11/20/20 Ellipta] amLODIPine [Norvasc] 10 mg PO DAILY 11/20/20 11/20/20 glipiZIDE XL [Glucotrol Xl] 10 mg PO BID 11/20/20 11/20/20 sitaGLIPtin PHOS/metFORMIN HCL 1 tab PO BID 11/20/20 11/20/20 [Janumet 50-1,000 mg Tablet] Allergies Allergy/AdvReac Type Severity Reaction Status Date / Time hydrocodone Allergy Severe Itching Verified 11/20/20 20:44 adhesive AdvReac skin Verified 11/20/20 20:44 irritation erythromycin base AdvReac Nausea & Verified 11/20/20 20:44 [Erythromycin Base] Vomiting Review of Systems ROS Statement: Those systems with pertinent positive or pertinent negative responses have been documented in the HPI. ROS Other: All systems not noted in ROS Statement are negative. Past Medical History Past Medical History: Musculoskeletal Disorder, Neurologic Disorder Additional Past Medical History / Comment(s): RECURRANT CELLUTITS/ABSCESS LEFT BREAST; KIDNEY STONES,multiple sclerosis, RT HIP IMPINGEMENT SYNDROME,CHRONIC PAIN SYNDROME, MIGRAINES, History of Any Multi-Drug Resistant Organisms: None Reported Past Surgical History: Breast Surgery, Orthopedic Surgery Additional Past Surgical History / Comment(s): 1990 BENIGN CYST DRAINED FROM BRAIN, D&C X2, LEFT HAND TENDON REPAIR,ATHROSCOPIC SURG RT HIP/BUNIONECTOMY, drainage of abscess left breast x 4. Past Anesthesia/Blood Transfusion Reactions: No Reported Reaction Past Psychological History: Anxiety Smoking Status: Current every day smoker Past Alcohol Use History: Rare Past Drug Use History: None Reported - Past Family History Father Family Medical History: Coronary Artery Disease (CAD) Additional Family Medical History / Comment(s): stents and cabg Mother Family Medical History: Dementia, Osteoarthritis (OA) General Exam - General Exam Comments Initial Comments: Physical Exam GENERAL: Patient is well-developed and well-nourished. Patient is nontoxic and well-hydrated and is in no distress. HENT: Normocephalic, Atraumatic. EYES: PERRL, EOMI PULMONARY: Unlabored respirations. CARDIOVASCULAR: RRR Warm and well perfused extremities ABDOMEN: Non-distended SKIN: Drainage from left nipple, mild surrounding erythema, tenderness to palpation : Deferred NEUROLOGIC: Alert and oriented Normal speech Normal gait MUSCULOSKELETAL: Moving all extremities with no apparent injury PSYCHIATRIC: No SI/HI Limitations: no limitations Course Vital Signs 11/20/20 15:35 Temperature 98.5 F Pulse Rate 78 Respiratory 18 Rate Blood Pressure 125/74 O2 Sat by Pulse 97 Oximetry Medical Decision Making - Medical Decision Making Labs were obtained and are significant for leukocytosis Results were discussed with Dr. Pasha Serrano who recommends patient be admitted to medicine, nothing by mouth at midnight possible surgery in the morning Patient agreeable to plan Patient care discussed with Dr Mistry who accepts admission - Lab Data Result diagrams: 11/20/20 17:26 11/20/20 17:26 Lab Results 11/20/20 11/20/20 11/20/20 Range/Units 17:26 17:26 17:26 WBC 19.6 H (3.8-10.6) k/uL RBC 5.21 (3.80-5.40) m/uL Hgb 15.6 (11.4-16.0) gm/dL Hct 47.4 H (34.0-46.0) % MCV 91.1 (80.0-100.0) fL MCH 30.0 (25.0-35.0) pg MCHC 32.9 (31.0-37.0) g/dL RDW 14.3 (11.5-15.5) % Plt Count 292 (150-450) k/uL MPV 7.4 Neutrophils % 61 % Lymphocytes % 23 % Monocytes % 5 % Eosinophils % 8 % Basophils % 1 % Neutrophils # 12.0 H (1.3-7.7) k/uL Lymphocytes # 4.6 (1.0-4.8) k/uL Monocytes # 1.0 (0-1.0) k/uL Eosinophils # 1.6 H (0-0.7) k/uL Basophils # 0.1 (0-0.2) k/uL Sodium 137 (137-145) mmol/L Potassium 3.7 (3.5-5.1) mmol/L Chloride 101 (98-107) mmol/L Carbon Dioxide 26 (22-30) mmol/L Anion Gap 10 mmol/L BUN 8 (7-17) mg/dL Creatinine 0.80 (0.52-1.04) mg/dL Est GFR (CKD-EPI)AfAm >90 (>60 ml/min/1.73 sqM) Est GFR (CKD-EPI)NonAf 85 (>60 ml/min/1.73 sqM) Glucose 85 (74-99) mg/dL Plasma Lactic Acid Filipe 1.1 (0.7-2.0) mmol/L Calcium 9.8 (8.4-10.2) mg/dL Total Bilirubin 1.2 (0.2-1.3) mg/dL AST 32 (14-36) U/L ALT 26 (4-34) U/L Alkaline Phosphatase 81 (38-126) U/L Total Protein 7.0 (6.3-8.2) g/dL Albumin 4.8 (3.5-5.0) g/dL Disposition Clinical Impression: Breast abscess Disposition: ADMITTED IP TO THIS [facility] Condition: Stable
--- NOTE | 2020-11-20 18:51 | USB ---
EXAMINATION TYPE: US breast limited LT DATE OF EXAM: 11/20/2020 COMPARISON: US 11/16/2014 CLINICAL HISTORY: abscess. Patient noticed white pus like discharge and pain posterior nipple 1 week ago. Patient does not know when her last mammogram was Posterior nipple there is a complex, spiculated, hypervascular area visualized measuring 3.1 x 2.9 x 3.3 cm, possible abscess vs other. IMPRESSION: There is complex density behind the nipple. This is nonspecific. I did consider the poss ibility of phlegmon and tumor. Follow-up is recommended.
[2020-11-20] MEDS ORDERED: NALOXONE 0.4 MG/ML 1 ML VIAL IV PRN (20:01)
[2020-11-20] MEDS ORDERED: ONDANSETRON 4 MG/2 ML VIAL IVP PRN (20:01)
[2020-11-20] MEDS ORDERED: diphenhydrAMINE 50 MG/ML 1 ML VIAL IVP STA (20:39)
[2020-11-20] MEDS ORDERED: HYDROmorphone 0.5 MG/0.5 ML SYRINGE IM PRN (20:40)
[2020-11-20] MEDS: QUEtiapine 25 MG TAB PO SCH (23:49)
[2020-11-20] MEDS: PREGABALIN 75 MG CAP PO SCH (23:50)
[2020-11-20] MEDS: MONTELUKAST 10 MG TAB PO SCH (23:50)
[2020-11-20] MEDS: PENTOXIFYLLINE 400 MG TABLET.ER PO SCH (23:50)
[2020-11-20] MEDS: HYDROmorphone 0.5 MG/0.5 ML SYRINGE IVP PRN (23:54)
[2020-11-21] MEDS: SODIUM CHLORIDE 0.9% 1,000 ML IV SCH ×3 (02:28→18:04)
[2020-11-21 05:48] LABS: Glucose,Whole Blood 169 mg/dL (75-99)
[2020-11-21] MEDS: PREGABALIN 75 MG CAP PO SCH ×3 (08:12→20:32)
[2020-11-21] MEDS: QUEtiapine 25 MG TAB PO SCH ×2 (08:12→20:32)
[2020-11-21] MEDS: PENTOXIFYLLINE 400 MG TABLET.ER PO SCH ×3 (08:12→18:01)
[2020-11-21] MEDS: INSULIN ASPART (NovoLOG) 100 UNIT/ML VIAL SQ SCH ×4 (08:16→20:31)
[2020-11-21] MEDS: PROPRANOLOL 40 MG TAB PO SCH ×3 (08:58→20:33)
[2020-11-21] MEDS: DULoxetine HCL 30 MG CAPSULE.DR PO SCH (08:58)
[2020-11-21] MEDS: HYDROmorphone 0.5 MG/0.5 ML SYRINGE IVP PRN (08:58)
[2020-11-21] MEDS: FLUoxetine HCL 20 MG CAP PO SCH (08:59)
--- NOTE | 2020-11-21 10:28 | P.GSHP ---
History of Present Illness H&P Date: 11/21/20 Chief Complaint: Abscess left breast nipple areolar area Manjula is a 50-year-old white female who states that she noticed some pain in her left breast at the nipple areolar region approximately 5 days ago. She presented to the emergency room yesterday with a complaint of purulent discharge from this site. She was evaluated and ultrasound was performed which revealed a collection behind the nipple areolar region. She was noted at the white count of 19,000. She denies any fever or chills. She has had multiple abscesses drained in this breast in the past the last was approximately 5 years ago. Past surgical history: I&D left breast abscess 5 2. Brain surgery cyst 3. foot surgery 4. D&C 5. Hand surgery Medical history: 1. MS 2. Diabetes 3. DJD Family history: 2 maternal aunts with breast cancer History: Menarche: 12 1 and 2, breast fed ES, age of first 33 Menopause: Patient still having menstrual periods less. One month ago With control pills: Negative Lungs: Negative Social history: Smoke 1 pack per day for 30 years Alcohol: Rare Drugs: Negative - Constitutional Constitutional: Reports as per HPI - EENT Eyes: bilateral as per HPI - Breasts Breasts: bilateral: as per HPI - Cardiovascular Cardiovascular: Denies chest pain, Denies shortness of breath - Respiratory Comment: smoker - Gastrointestinal Gastrointestinal: Reports diarrhea - Genitourinary (Female) Genitourinary: Reports kidney stones - Menstruation Menstruation: Reports premenarcheal - Musculoskeletal Comment: Degenerative disc disease - Integumentary Comment: erythema and swelling around the left nipple areolar region - Neurological Neurological: Denies numbness, Denies weakness - Endocrine Comment: diabetes - Allergic/Immunologic Allergic/Immunologic: Reports as per HPI Past Medical History Past Medical History: Diabetes Mellitus, Hypertension, Musculoskeletal Disorder, Neurologic Disorder Additional Past Medical History / Comment(s): RECURRANT CELLUTITS/ABSCESS LEFT BREAST; KIDNEY STONES,multiple sclerosis, RT HIP IMPINGEMENT SYNDROME,CHRONIC PAIN SYNDROME, MIGRAINES, History of Any Multi-Drug Resistant Organisms: None Reported Past Surgical History: Breast Surgery, Orthopedic Surgery Additional Past Surgical History / Comment(s): 1990 BENIGN CYST DRAINED FROM BRAIN, D&C X2, LEFT HAND TENDON REPAIR,ATHROSCOPIC SURG RT HIP/BUNIONECTOMY, drainage of abscess left breast x 4. Past Anesthesia/Blood Transfusion Reactions: No Reported Reaction Past Psychological History: Anxiety Smoking Status: Current every day smoker Past Alcohol Use History: Rare Additional Past Alcohol Use History / Comment(s): She denies medical marijuana, marijuana or street drug use. She drinks alcohol on a rare bases. Past Drug Use History: None Reported - Past Family History Father Family Medical History: Coronary Artery Disease (CAD) Additional Family Medical History / Comment(s): stents and cabg Mother Family Medical History: Dementia, Osteoarthritis (OA) Medications and Allergies Home Medications Medication Instructions Recorded Confirmed Type Montelukast [Singulair] 10 mg PO HS 08/26/16 11/20/20 History Aspirin 81 mg PO DAILY 06/24/18 11/20/20 History Propranolol [Inderal] 40 mg PO TID 06/24/18 11/20/20 History Ascorbic Acid [Vitamin C] 500 mg PO BID 07/02/18 11/20/20 History tiZANidine [Zanaflex] 4 mg PO BID PRN 07/02/18 11/20/20 History Atorvastatin [Lipitor] 40 mg PO DAILY 05/27/19 11/20/20 History Betamethasone Dipropionate 1 applic TOPICAL DAILY PRN 05/27/19 11/20/20 History [Diprolene AF 0.05% Cream] Cetirizine HCl [Zyrtec] 10 mg PO DAILY 05/27/19 11/20/20 History Dalfampridine [Dalfampridine ER] 10 mg PO DAILY 05/27/19 11/20/20 History Pregabalin [Lyrica] 150 mg PO TID 05/27/19 11/20/20 History modafiniL [Provigil] 200 mg PO DAILY 05/27/19 11/20/20 History Cholecalciferol [Vitamin D3 (25 50 mcg PO DAILY 11/20/20 11/20/20 History Mcg = 1000 Iu)] Clotrimazole Cream [Lotrimin Cream] 1 applic TOPICAL DAILY 11/20/20 11/20/20 History DULoxetine HCL [Cymbalta] 30 mg PO DAILY 11/20/20 11/20/20 History FLUoxetine HCL [PROzac] 20 mg PO DAILY 11/20/20 11/20/20 History Meloxicam 7.5 mg PO DAILY PRN 11/20/20 11/20/20 History Pentoxifylline 400 mg PO TID 11/20/20 11/20/20 History QUEtiapine FUMARATE [SEROquel XR] 150 mg PO HS 11/20/20 11/20/20 History Tysabri Infusion 1 dose IV QMONTHLY 11/20/20 11/20/20 History Umeclidinium [place] [Incruse 1 puff INHALATION RT-DAILY 11/20/20 11/20/20 History Ellipta] amLODIPine [Norvasc] 10 mg PO DAILY 11/20/20 11/20/20 History glipiZIDE XL [Glucotrol Xl] 10 mg PO BID 11/20/20 11/20/20 History sitaGLIPtin PHOS/metFORMIN HCL 1 tab PO BID 11/20/20 11/20/20 History [Janumet 50-1,000 mg Tablet] Allergies Allergy/AdvReac Type Severity Reaction Status Date / Time hydrocodone Allergy Severe Itching Verified 11/20/20 20:44 adhesive AdvReac skin Verified 11/20/20 20:44 irritation erythromycin base AdvReac Nausea & Verified 11/20/20 20:44 [Erythromycin Base] Vomiting Surgical - Exam Vital Signs Temp Pulse Resp BP Pulse Ox 98.5 F 78 18 125/74 97 11/20/20 15:35 11/20/20 15:35 11/20/20 15:35 11/20/20 15:35 11/20/20 15:35 BMI 30.6 - General moderate distress - ENT no hearing loss - Neck no masses, trachea midline - Respiratory normal expansion, normal respiratory effort, clear to auscultation - Cardiovascular Rhythm: regular Heart Sounds: normal: S1, S2 - Integumentary erythema and swelling left nipple aerolar complex region/ tender to palpation - Psychiatric oriented to time, oriented to place, speech is normal Breast examination: Right breast: No dominant masses or nodules of concern Limited examination is patient is recumbent in bed Right axilla: No adenopathy of concern Left breast: Marked tenderness and erythema and swelling nipple areolar region otherwise no dominant masses or nodules of concern, Limited exam secondary to patient recumbent in bed and does is tender Left axilla: No adenopathy of concern Results Ultrasound reviewed with radiologist collection under her nipple areolar complex may be consistent with abscess not amiable to percutaneous drainage - Labs 11/20/20 17:26 11/20/20 17:26 Abnormal Lab Results - Last 24 Hours (Table) 11/20/20 11/21/20 Range/Units 17:26 05:46 WBC 19.6 H (3.8-10.6) k/uL Hct 47.4 H (34.0-46.0) % Neutrophils # 12.0 H (1.3-7.7) k/uL Eosinophils # 1.6 H (0-0.7) k/uL POC Glucose (mg/dL) 169 H (75-99) mg/dL Diabetes panel 11/20/20 Range/Units 17:26 Sodium 137 (137-145) mmol/L Potassium 3.7 (3.5-5.1) mmol/L Chloride 101 (98-107) mmol/L Carbon Dioxide 26 (22-30) mmol/L BUN 8 (7-17) mg/dL Creatinine 0.80 (0.52-1.04) mg/dL Glucose 85 (74-99) mg/dL Calcium 9.8 (8.4-10.2) mg/dL AST 32 (14-36) U/L ALT 26 (4-34) U/L Alkaline Phosphatase 81 (38-126) U/L Total Protein 7.0 (6.3-8.2) g/dL Albumin 4.8 (3.5-5.0) g/dL Calcium panel 11/20/20 Range/Units 17:26 Calcium 9.8 (8.4-10.2) mg/dL Albumin 4.8 (3.5-5.0) g/dL Pituitary panel 11/20/20 Range/Units 17:26 Sodium 137 (137-145) mmol/L Potassium 3.7 (3.5-5.1) mmol/L Chloride 101 (98-107) mmol/L Carbon Dioxide 26 (22-30) mmol/L BUN 8 (7-17) mg/dL Creatinine 0.80 (0.52-1.04) mg/dL Glucose 85 (74-99) mg/dL Calcium 9.8 (8.4-10.2) mg/dL Adrenal panel 11/20/20 Range/Units 17:26 Sodium 137 (137-145) mmol/L Potassium 3.7 (3.5-5.1) mmol/L Chloride 101 (98-107) mmol/L Carbon Dioxide 26 (22-30) mmol/L BUN 8 (7-17) mg/dL Creatinine 0.80 (0.52-1.04) mg/dL Glucose 85 (74-99) mg/dL Calcium 9.8 (8.4-10.2) mg/dL Total Bilirubin 1.2 (0.2-1.3) mg/dL AST 32 (14-36) U/L ALT 26 (4-34) U/L Alkaline Phosphatase 81 (38-126) U/L Total Protein 7.0 (6.3-8.2) g/dL Albumin 4.8 (3.5-5.0) g/dL Assessment and Plan Assessment: Impression: 1. Abscess chronic/recurrent under her left nipple areolar complex 2. Leukocytosis 3. MS 4. Diabetes 5. Degenerative disc disease Plan: 1. I&D of abscess 2. Medical management of medical conditions 3. IV antibiotics Risks and benefits of the procedure discussed with the patient. Risks include but are not limited to bleeding, infection, reaction to the anesthetic. She understands that the area will be left open and packed. She also understands that the area can recur which could necesitate additional surgery. Biopsy will most likely be taken. If this were to be a malignancy then further treatment will be necessary.
[2020-11-21 11:48] LABS: Hemoglobin A1C 7.6 % (4.0-6.0)
[2020-11-21 12:47] LABS: Glucose,Whole Blood 114 mg/dL (75-99)
[2020-11-21] MEDS: DEXTROSE 5%-0.9% NACL 1,000 ML IV SCH (13:15)
[2020-11-21] MEDS ORDERED: IV FLUID CONTINUATION 1,000 ML IV ONE (14:49)
[2020-11-21 15:02] LABS: Glucose,Whole Blood 146 mg/dL (75-99)
[2020-11-21] MEDS: LACTATED RINGERS 1,000 ML IV ONE ×2 (16:07→20:15)
[2020-11-21] MEDS ORDERED: ONDANSETRON 4 MG/2 ML VIAL ONE (16:08)
[2020-11-21] MEDS ORDERED: PROPOFOL 10 MG/ML 50 ML VIAL IV ONE (16:08)
[2020-11-21] MEDS ORDERED: MIDAZOLAM 2 MG/2 ML VIAL ONE (16:08)
[2020-11-21] MEDS ORDERED: HEPARIN SODIUM,PORCINE 5,000 UNIT/ML 1 ML VIAL ONE (16:08)
[2020-11-21] MEDS ORDERED: SUCCINYLCHOLINE CHLORIDE 100 MG/5 ML SYR IV ONE (16:08)
[2020-11-21] MEDS ORDERED: fentaNYL (PF) 50 MCG/ML 2 ML AMP ONE (16:08)
[2020-11-21] MEDS ORDERED: LIDOCAINE 1% INJ 10MG/ML (20 ML MDV) ONE (16:08)
[2020-11-21] MEDS ORDERED: PHENYLEPHRINE-0.9% NACL SYG 1,000 MCG/10 ML SYRINGE ONE (16:08)
[2020-11-21] MEDS ORDERED: LACTATED RINGERS 1,000 ML IV ONE (16:10)
--- NOTE | 2020-11-21 16:57 | P.PCN ---
Date of Procedure: 11/21/20 Preoperative Diagnosis: Left breast abscess Postoperative Diagnosis: Same Procedure(s) Performed: Incision and drainage left breast abscess, biopsy of abscess cavity wall Anesthesia: SUZIA Surgeon: Joellen Pierre Estimated Blood Loss (ml): 3 IV fluids (ml): 500 Pathology: other (biopsy of wall abscess cavity) Condition: stable Disposition: floor Indications for Procedure: abscess left breast Operative Findings: abscess left breast Description of Procedure: Manjula is a 50-year-old white female who has had multiple abscesses in her left breast in the past in the retroaerolar area. The last was several years ago. She presented with an abscess in the left breast with drainage of purulent material from the nipple area as well as a area of erythema and pain in the retroareolar area. Additionally an ultrasound was performed which revealed an accumulation of fluid/purulent material behind the nipple areolar complex. The patient was recommended for incision and drainage of the area of concern. The patient understands that this may require more than one drainage procedure. The patient was taken to the operating room and following induction of anesthesia the left breast was prepped and draped in a sterile fashion. An incision was made in the inferior circumareolar region. An abscess cavity was entered. There was purulent drainage from the cavity. The cavity was approxim ately 5 cm x 6 cm in size. The fluid was drained and the wall of the cavity was biopsied. Cultures were obtained. It was irrigated using a liter of fluid, 0.9L of normal saline. After we were assured that hemostasis was attained the would was packed using iodoform gauze. Patient tolerated procedure in stable condition. All instrument and sponge counts were correct at the end of the case.
[2020-11-21 17:14] LABS: Glucose,Whole Blood 131 mg/dL (75-99)
[2020-11-21] MEDS: traMADol 50 MG TAB PO PRN (18:01)
[2020-11-21 20:13] LABS: Glucose,Whole Blood 182 mg/dL (75-99)
[2020-11-21] MEDS: MONTELUKAST 10 MG TAB PO SCH (20:32)
--- NOTE | 2020-11-21 23:18 | P.HPIM ---
History of Present Illness H&P Date: 11/21/20 Chief Complaint: L breast pain and swelling Manjula Harris is a 50 yo F with hx recurrent cellulitis and abscess of the L breast, T2DM, bipolar disorder, fibromyalgia who presented to the ED complaining of worsening pain and swelling of her L breast over the past few da ys. She denies any drainage but has been having pain and chills as well as reduced appetite. She last had an infection of the breast around 2014. On presentation vitals stable, afebrile, WBC 19k, COVID negative. Breast US with subareolar fluid collection. Review of Systems All systems: negative Constitutional: Reports malaise, Denies chills, Denies fever Eyes: denies blurred vision, denies pain Ears, nose, mouth and throat: Denies headache, Denies sore throat Breasts: Reports as per HPI Cardiovascular: Denies chest pain, Denies shortness of breath Respiratory: Denies cough Gastrointestinal: Denies abdominal pain, Denies diarrhea, Denies nausea, Denies vomiting Genitourinary: Denies dysuria, Denies hematuria Musculoskeletal: Denies myalgias Integumentary: Denies pruritus, Denies rash Neurological: Denies numbness, Denies weakness Psychiatric: Denies anxiety, Denies depression Endocrine: Denies fatigue, Denies weight change Past Medical History Past Medical History: Diabetes Mellitus, Hypertension, Musculoskeletal Disorder, Neurologic Disorder Additional Past Medical History / Comment(s): RECURRANT CELLUTITS/ABSCESS LEFT BREAST; KIDNEY STONES,multiple sclerosis, RT HIP IMPINGEMENT SYNDROME,CHRONIC PAIN SYNDROME, MIGRAINES, History of Any Multi-Drug Resistant Organisms: None Reported Past Surgical History: Breast Surgery, Orthopedic Surgery Additional Past Surgical History / Comment(s): 1990 BENIGN CYST DRAINED FROM BRAIN, D&C X2, LEFT HAND TENDON REPAIR,ATHROSCOPIC SURG RT HIP/BUNIONECTOMY, drainage of abscess left breast x 4. Past Anesthesia/Blood Transfusion Reactions: No Reported Reaction Past Psychological History: Anxiety Smoking Status: Current every day smoker Past Alcohol Use History: Rare Additional Past Alcohol Use History / Comment(s): She denies medical marijuana, marijuana or street drug use. She drinks alcohol on a rare bases. Past Drug Use History: None Reported - Past Family History Father Family Medical History: Coronary Artery Disease (CAD) Additional Family Medical History / Comment(s): stents and cabg Mother Family Medical History: Dementia, Osteoarthritis (OA) Medications and Allergies Home Medications Medication Instructions Recorded Confirmed Type Montelukast [Singulair] 10 mg PO HS 08/26/16 11/20/20 History Aspirin 81 mg PO DAILY 06/24/18 11/20/20 History Propranolol [Inderal] 40 mg PO TID 06/24/18 11/20/20 History Ascorbic Acid [Vitamin C] 500 mg PO BID 07/02/18 11/20/20 History tiZANidine [Zanaflex] 4 mg PO BID PRN 07/02/18 11/20/20 History Atorvastatin [Lipitor] 40 mg PO DAILY 05/27/19 11/20/20 History Betamethasone Dipropionate 1 applic TOPICAL DAILY PRN 05/27/19 11/20/20 History [Diprolene AF 0.05% Cream] Cetirizine HCl [Zyrtec] 10 mg PO DAILY 05/27/19 11/20/20 History Dalfampridine [Dalfampridine ER] 10 mg PO DAILY 05/27/19 11/20/20 History Pregabalin [Lyrica] 150 mg PO TID 05/27/19 11/20/20 History modafiniL [Provigil] 200 mg PO DAILY 05/27/19 11/20/20 History Cholecalciferol [Vitamin D3 (25 50 mcg PO DAILY 11/20/20 11/20/20 History Mcg = 1000 Iu)] Clotrimazole Cream [Lotrimin Cream] 1 applic TOPICAL DAILY 11/20/20 11/20/20 History DULoxetine HCL [Cymbalta] 30 mg PO DAILY 11/20/20 11/20/20 History FLUoxetine HCL [PROzac] 20 mg PO DAILY 11/20/20 11/20/20 History Meloxicam 7.5 mg PO DAILY PRN 11/20/20 11/20/20 History Pentoxifylline 400 mg PO TID 11/20/20 11/20/20 History QUEtiapine FUMARATE [SEROquel XR] 150 mg PO HS 11/20/20 11/20/20 History Tysabri Infusion 1 dose IV QMONTHLY 11/20/20 11/20/20 History Umeclidinium [place] [Incruse 1 puff INHALATION RT-DAILY 11/20/20 11/20/20 History Ellipta] amLODIPine [Norvasc] 10 mg PO DAILY 11/20/20 11/20/20 History glipiZIDE XL [Glucotrol Xl] 10 mg PO BID 11/20/20 11/20/20 History sitaGLIPtin PHOS/metFORMIN HCL 1 tab PO BID 11/20/20 11/20/20 History [Janumet 50-1,000 mg Tablet] Allergies Allergy/AdvReac Type Severity Reaction Status Date / Time hydrocodone Allergy Severe Itching Verified 11/20/20 20:44 adhesive AdvReac skin Verified 11/20/20 20:44 irritation erythromycin base AdvReac Nausea & Verified 11/20/20 20:44 [Erythromycin Base] Vomiting Physical Exam Vitals: Vital Signs Temp Pulse Pulse Resp BP Pulse Ox 11/21/20 20:38 91 143/75 97 11/21/20 20:05 85 16 132/72 97 11/21/20 19:35 87 16 117/67 97 11/21/20 19:05 84 16 119/69 97 11/21/20 18:35 86 16 119/74 97 11/21/20 18:20 85 16 123/65 97 11/21/20 18:05 101 H 16 134/97 94 L 11/21/20 17:50 98.2 F 93 16 133/70 95 11/21/20 17:33 87 16 136/73 94 L 11/21/20 17:16 82 16 127/71 98 11/21/20 16:57 99.0 F 92 14 122/72 95 11/21/20 14:58 79 17 144/67 95 11/21/20 14:05 99.2 F 75 16 123/71 11/21/20 10:15 16 11/21/20 10:10 99.2 F 75 16 123/71 96 11/21/20 08:45 98.4 F 90 18 127/72 95 11/21/20 04:07 97.6 F 77 16 100/67 88 L Intake and Output 11/21/20 11/21/20 11/22/20 14:59 22:59 06:59 Intake Total 50 960 Output Total 353 Balance 50 607 Intake: IV 50 600 Oral 360 Output: Urine 350 Estimated Blood Loss 3 Other: Voiding Method Toilet # Voids 1 General: well nourished, well developed, NAD. Vitals reviewed Eyes: PERRL, EOMI, conjunctiva normal HENT: normocephalic, mucus membranes moist Neck: supple, no JVD Lungs: normal respiratory effort, no wheezes or rales CV: Regular rate and rhythm, no murmur. Peripheral pulses 2+ Abdomen: soft, nondistended, no organomegaly Lymph: no cervical or axillary LAD Skin: warm and dry. L breast tenderness and erythema Neuro: A&Ox3, normal mood and affect Results CBC & Chem 7: 11/20/20 17:26 11/20/20 17:26 Labs: Abnormal Lab Results - Last 24 Hours (Table) 11/20/20 11/21/20 11/21/20 Range/Units 17:26 05:46 12:45 POC Glucose (mg/dL) 169 H 114 H (75-99) mg/dL Hemoglobin A1c 7.6 H (4.0-6.0) % 11/21/20 11/21/20 11/21/20 Range/Units 15:01 17:13 20:11 POC Glucose (mg/dL) 146 H 131 H 182 H (75-99) mg/dL Hemoglobin A1c (4.0-6.0) % Microbiology - Last 24 Hours (Table) 11/21/20 16:25 Fungal Culture - Preliminary Breast - Left 11/21/20 16:25 Anaerobic Culture - Preliminary Breast - Left 11/21/20 16:25 Wound Culture - Preliminary Breast - Left 11/20/20 17:35 Blood Culture - Preliminary Blood No Growth after 24 hours 11/20/20 17:35 Blood Culture - Preliminary Blood No Growth after 24 hours Thrombosis Risk Factor Assmnt - Choose All That Apply Each Factor Represents 1 point: Age 41-60 years Other Risk Factors: No Each Risk Factor Represents 2 Points: Major surgery Thrombosis Risk Factor Assessment Total Risk Factor Score: 3 Thrombosis Risk Factor Assessment Level: Moderate Risk Assessment and Plan (1) Abscess of breast Current Visit: Yes Status: Acute Code(s): N61 - INFLAMMATORY DISORDERS OF BREAST * DO NOT USE * SNOMED Code(s): 94696872 (2) Abscess of breast, left Current Visit: No Status: Acute Code(s): N61 - INFLAMMATORY DISORDERS OF BREAST * DO NOT USE * SNOMED Code(s): 67048464 (3) Breast abscess of female Current Visit: No Status: Acute Code(s): N61 - INFLAMMATORY DISORDERS OF BREAST * DO NOT USE * SNOMED Code(s): 44436867 Plan: 1. Abscess and cellulitits of L breast. Continue kefzol, surgery consulted and plan for operative drainage. pain control 2. T2DM. Accucheck, sliding scale 3. Bipolar disorder. Continue seroquel, prozac 4. Fibromyalgia. Continue lyrica
[2020-11-22] MEDS: IBUPROFEN 400 MG TAB PO PRN (01:11)
[2020-11-22] MEDS: DEXTROSE 5%-0.9% NACL 1,000 ML IV SCH ×4 (01:39→19:56)
[2020-11-22] MEDS: SODIUM CHLORIDE 0.9% 1,000 ML IV SCH ×3 (01:40→19:47)
[2020-11-22 06:48] LABS: Glucose,Whole Blood 173 mg/dL (75-99)
[2020-11-22] MEDS: INSULIN ASPART (NovoLOG) 100 UNIT/ML VIAL SQ SCH ×4 (06:54→20:27)
[2020-11-22] MEDS: PENTOXIFYLLINE 400 MG TABLET.ER PO SCH ×3 (06:54→17:36)
[2020-11-22] MEDS: PREGABALIN 75 MG CAP PO SCH ×3 (09:03→20:30)
[2020-11-22] MEDS: DULoxetine HCL 30 MG CAPSULE.DR PO SCH (09:03)
[2020-11-22] MEDS: FLUoxetine HCL 20 MG CAP PO SCH (09:03)
[2020-11-22] MEDS: QUEtiapine 25 MG TAB PO SCH ×2 (09:03→20:28)
[2020-11-22] MEDS: traMADol 50 MG TAB PO PRN ×2 (09:23→20:34)
[2020-11-22 09:39] LABS: Basophils # (A) 0.1 k/uL (0-0.2); Basophils % (A) 0 %; Eosinophils # (A) 0.9 k/uL (0-0.7); Eosinophils % (A) 6 %; HCT 43.6 % (34.0-46.0); HGB 14.1 gm/dL (11.4-16.0); Lymphocytes # (A) 2.8 k/uL (1.0-4.8); Lymphocytes % (A) 20 %; MCH 30.5 pg (25.0-35.0); MCHC 32.5 g/dL (31.0-37.0); Mean Platelet Volume 7.4; Monocytes # (A) 0.9 k/uL (0-1.0); Monocytes % (A) 7 %; Neutrophils # (A) 8.8 k/uL (1.3-7.7); Neutrophils % (A) 65 %; Platelet Count 239 k/uL (150-450); RBC 4.63 m/uL (3.80-5.40); RDW 13.9 % (11.5-15.5); WBC 13.6 k/uL (3.8-10.6)
[2020-11-22] MEDS: PROPRANOLOL 40 MG TAB PO SCH ×3 (09:43→20:29)
--- NOTE | 2020-11-22 10:36 | P.CONS ---
History of Present Illness - Reason for Consult Consult date: 11/22/20 wound care - History of Present Illness This is a 50-year-old patient being seen on for a recurrent left breast abscess. Patient underwent a I&D with Dr. Pak. Post intervention measurements 5 cm x 6 mm. The ulceration was packed with iodoform. Patient complains of significant amount of pain to the site. The iodoform was removed from the cavity. Patient had serosanguineous drainage from the site. Previous ly a proximal 26 years ago patient had this same abscess. She was treated at that time by the wound care center. Ulceration measures a proximally 5 cm x 6 cm x 6 cm. Serosanguineous drainage large, granulation seen within the wound bed. Patient has significant amount of pain and discomfort specifically with dressing changes. Patient's past medical history significant for diabetes, hypertension, chronic pain, recurrent cellulitis abscess to the left breast. Review Of Systems: Constitutional: No fever, no chills, no night sweats. No weight change. No weakness, fatigue or lethargy. No daytime sleepiness. Integumentary:reports wounds, no lesions. No rash or pruritus. No unusual bruising. No change in hair or nails. Physical exam: General Appearance: Alert, cooperative, no distress, appears stated age. Skin: See HPI all other Skin color, texture, tugor normal, no rashes or lesions. Neurologic: Alert oriented x3 Assessment: 1. Nonhealing ulceration with muscle involvement without necrosis left breast 2. Abscess 3. Diabetes a skin ulcer 4. Nicotine dependence Plan: 1. Applied negative pressure wound VAC at 125 mmHg continuous suction utilizing black foam. Change Friday. Use Hurricaine spray topical to the site prior to dressing change. Patient to continue with the dressings upon discharge. Discussed with patient coming to the wound care center for continuing to advance wound care patient is agreeable. We will set up an appointment upon discharge. Thank you for the consultation any questions please contact the wound care center DNP note has been reviewed and discussed with Dr. Lemus and the impression and plan of care has been directed as dictated. Past Medical History Past Medical History: Diabetes Mellitus, Hypertension, Musculoskeletal Disorder, Neurologic Disorder Additional Past Medical History / Comment(s): RECURRANT CELLUTITS/ABSCESS LEFT BREAST; KIDNEY STONES,multiple sclerosis, RT HIP IMPINGEMENT SYNDROME,CHRONIC PAIN SYNDROME, MIGRAINES, History of Any Multi-Drug Resistant Organisms: None Reported Past Surgical History: Breast Surgery, Orthopedic Surgery Additional Past Surgical History / Comment(s): 1991 BENIGN CYST DRAINED FROM BRAIN, D&C X2, LEFT HAND TENDON REPAIR,ATHROSCOPIC SURG RT HIP/BUNIONECTOMY, drainage of abscess left breast x 4. Past Anesthesia/Blood Transfusion Reactions: No Reported Reaction Past Psychological History: Anxiety Smoking Status: Current every day smoker Past Alcohol Use History: Rare Additional Past Alcohol Use History / Comment(s): She denies medical marijuana, marijuana or street drug use. She drinks alcohol on a rare bases. Past Drug Use History: None Reported - Past Family History Father Family Medical History: Coronary Artery Disease (CAD) Additional Family Medical History / Comment(s): stents and cabg Mother Family Medical History: Dementia, Osteoarthritis (OA) Medications and Allergies Home Medications Medication Instructions Recorded Confirmed Type Montelukast [Singulair] 10 mg PO HS 08/26/16 11/20/20 History Aspirin 81 mg PO DAILY 06/24/18 11/20/20 History Propranolol [Inderal] 40 mg PO TID 06/24/18 11/20/20 History Ascorbic Acid [Vitamin C] 500 mg PO BID 07/02/18 11/20/20 History tiZANidine [Zanaflex] 4 mg PO BID PRN 07/02/18 11/20/20 History Atorvastatin [Lipitor] 40 mg PO DAILY 05/27/19 11/20/20 History Betamethasone Dipropionate 1 applic TOPICAL DAILY PRN 05/27/19 11/20/20 History [Diprolene AF 0.05% Cream] Cetirizine HCl [Zyrtec] 10 mg PO DAILY 05/27/19 11/20/20 History Dalfampridine [Dalfampridine ER] 10 mg PO DAILY 05/27/19 11/20/20 History Pregabalin [Lyrica] 150 mg PO TID 05/27/19 11/20/20 History modafiniL [Provigil] 200 mg PO DAILY 05/27/19 11/20/20 History Cholecalciferol [Vitamin D3 (25 50 mcg PO DAILY 11/20/20 11/20/20 History Mcg = 1000 Iu)] Clotrimazole Cream [Lotrimin Cream] 1 applic TOPICAL DAILY 11/20/20 11/20/20 History DULoxetine HCL [Cymbalta] 30 mg PO DAILY 11/20/20 11/20/20 History FLUoxetine HCL [PROzac] 20 mg PO DAILY 11/20/20 11/20/20 History Meloxicam 7.5 mg PO DAILY PRN 11/20/20 11/20/20 History Pentoxifylline 400 mg PO TID 11/20/20 11/20/20 History QUEtiapine FUMARATE [SEROquel XR] 150 mg PO HS 11/20/20 11/20/20 History Tysabri Infusion 1 dose IV QMONTHLY 11/20/20 11/20/20 History Umeclidinium [place] [Incruse 1 puff INHALATION RT-DAILY 11/20/20 11/20/20 History Ellipta] amLODIPine [Norvasc] 10 mg PO DAILY 11/20/20 11/20/20 History glipiZIDE XL [Glucotrol Xl] 10 mg PO BID 11/20/20 11/20/20 History sitaGLIPtin PHOS/metFORMIN HCL 1 tab PO BID 11/20/20 11/20/20 History [Janumet 50-1,000 mg Tablet] Allergies Allergy/AdvReac Type Severity Reaction Status Date / Time hydrocodone Allergy Severe Itching Verified 11/20/20 20:44 adhesive AdvReac skin Verified 11/20/20 20:44 irritation erythromycin base AdvReac Nausea & Verified 11/20/20 20:44 [Erythromycin Base] Vomiting Physical Exam Vitals: Vital Signs Temp Pulse Pulse Resp BP Pulse Ox 11/22/20 08:30 97.8 F 68 16 106/61 97 11/22/20 01:37 99.6 F 88 18 111/70 92 L 11/21/20 20:38 91 143/75 97 11/21/20 20:05 85 16 132/72 97 11/21/20 19:35 87 16 117/67 97 11/21/20 19:05 84 16 119/69 97 11/21/20 18:35 86 16 119/74 97 11/21/20 18:20 85 16 123/65 97 11/21/20 18:05 101 H 16 134/97 94 L 11/21/20 17:50 98.2 F 93 16 133/70 95 11/21/20 17:33 87 16 136/73 94 L 11/21/20 17:16 82 16 127/71 98 11/21/20 16:57 99.0 F 92 14 122/72 95 11/21/20 14:58 79 17 144/67 95 11/21/20 14:05 99.2 F 75 16 123/71 Intake and Output 11/21/20 11/22/20 11/22/20 22:59 06:59 14:59 Intake Total 960 1060 Output Total 353 Balance 607 1060 Intake: IV 600 Intake, IV Titration 1060 Amount Dextrose 5%-0.9% NaCl 1, 960 000 ml @ 120 mls/hr IV . Q8H20M [facility] Rx#:[id number] ceFAZolin 1,000 mg In 100 Sodium Chloride 0.9% 50 ml @ 100 mls/hr IVPB Q6H [facility] Rx#:[id number] Oral 360 Output: Urine 350 Estimated Blood Loss 3 Other: Voiding Method Toilet # Voids 1 2 Results CBC & Chem 7: 11/22/20 09:08 11/20/20 17:26 Labs: Abnormal Lab Results - Last 24 Hours (Table) 11/20/20 11/21/20 11/21/20 Range/Units 17:26 12:45 15:01 WBC (3.8-10.6) k/uL Neutrophils # (1.3-7.7) k/uL Eosinophils # (0-0.7) k/uL POC Glucose (mg/dL) 114 H 146 H (75-99) mg/dL Hemoglobin A1c 7.6 H (4.0-6.0) % 11/21/20 11/21/20 11/22/20 Range/Units 17:13 20:11 06:46 WBC (3.8-10.6) k/uL Neutrophils # (1.3-7.7) k/uL Eosinophils # (0-0.7) k/uL POC Glucose (mg/dL) 131 H 182 H 173 H (75-99) mg/dL Hemoglobin A1c (4.0-6.0) % 11/22/20 Range/Units 09:08 WBC 13.6 H (3.8-10.6) k/uL Neutrophils # 8.8 H (1.3-7.7) k/uL Eosinophils # 0.9 H (0-0.7) k/uL POC Glucose (mg/dL) (75-99) mg/dL Hemoglobin A1c (4.0-6.0) % Microbiology - Last 24 Hours (Table) 11/21/20 16:25 Gram Stain - Preliminary Breast - Left Wound Culture - Preliminary 11/21/20 16:25 Fungal Culture - Preliminary Breast - Left 11/21/20 16:25 Anaerobic Culture - Preliminary Breast - Left 11/20/20 17:35 Blood Culture - Preliminary Blood No Growth after 24 hours 11/20/20 17:35 Blood Culture - Preliminary Blood No Growth after 24 hours Assessment and Plan (1) Non-pressure chronic ulcer of skin of other sites with muscle involvement without evidence of necrosis Current Visit: Yes Status: Acute Code(s): L98.495 - NON-PRS CHR ULC SKIN/ OTH SITE WITH MSL INVL W/O EVD OF NECR SNOMED Code(s): 11851307 (2) Diabetes with skin ulcer Current Visit: Yes Status: Acute Code(s): E11.622 - TYPE 2 DIABETES MELLITUS WITH OTHER SKIN ULCER; L98.499 - NON-PRESSURE CHRONIC ULCER OF SKIN OF SITES W UNSP SEVERITY SNOMED Code(s): 04650609 (3) Nicotine dependence Current Visit: Yes Status: Acute Code(s): F17.200 - NICOTINE DEPENDENCE, UNSPECIFIED, UNCOMPLICATED SNOMED Code(s): 13122437 (4) Abscess of skin or subcutaneous tissue Current Visit: No Status: Acute Code(s): L02.91 - CUTANEOUS ABSCESS, UNSPECIFIED SNOMED Code(s): 74853444
[2020-11-22] MEDS: HYDROmorphone 0.5 MG/0.5 ML SYRINGE IVP PRN ×2 (11:45→17:38)
[2020-11-22] MEDS ORDERED: HYDROmorphone 0.5 MG/0.5 ML SYRINGE IVP STA (12:27)
[2020-11-22 12:28] LABS: Glucose,Whole Blood 236 mg/dL (75-99)
[2020-11-22] MEDS: AMPICILLIN-SULBACTAM 3 GM in SODIUM CHLORIDE 0.9% 100 ML IVPB SCH ×2 (12:36→17:36)
--- NOTE | 2020-11-22 16:43 | P.PN ---
Subjective Progress Note Date: 11/22/20 Manjula Harris is a 50 yo F with hx recurrent cellulitis and abscess of the L breast, T2DM, bipolar disorder, fibromyalgia who presented to the ED complaining of worsening pain and swelling of her L breast over the past few days. She denies any drainage but has been having pain and chills as well as r educed appetite. She last had an infection of the breast around 2014. On presentation vitals stable, afebrile, WBC 19k, COVID negative. Breast US with subareolar fluid collection. 11/22/2020 underwent I&D of left breast abscess with biopsy. Tolerated procedure well. Maintained on IV antibiotics. Reports pain improving. T-max 99.6, WBC 13.6. Maintaining O2 sats in the high 90s on 2 L nasal cannula. Ambulating, tolerating exertion well. Denies chest pain, palpitations or shortness of breath. Objective - Vital Signs Vital signs: Vital Signs Temp 100.8 F H 11/22/20 15:15 Pulse 79 11/22/20 14:10 Resp 16 11/22/20 14:10 BP 114/70 11/22/20 14:10 Pulse Ox 97 11/22/20 08:30 Intake & Output 11/21/20 11/22/20 11/22/20 18:59 06:59 18:59 Intake Total 1010 1060 120 Output Total 353 Balance 657 1060 120 Intake: IV 650 Intake, IV Titration 1060 Amount Dextrose 5%-0.9% NaCl 1, 960 000 ml @ 120 mls/hr IV . Q8H20M [facility] Rx#:[id number] ceFAZolin 1,000 mg In 100 Sodium Chloride 0.9% 50 ml @ 100 mls/hr IVPB Q6H [facility] Rx#:[id number] Oral 360 120 Output: Urine 350 Estimated Blood Loss 3 Other: Voiding Method Toilet # Voids 1 2 - Exam General: well nourished, well developed, NAD. Vitals reviewed Eyes: PERRL, EOMI, conjunctiva normal HENT: normocephalic, mucus membranes moist Neck: supple, no JVD Lungs: normal respiratory effort, no wheezes or rales CV: Regular rate and rhythm, no murmur. Peripheral pulses 2+ Abdomen: soft, nondistended, no organomegaly Skin: warm and dry. L breast tenderness and erythema, dressing with serosanguineous drainage Neuro: A&Ox3, normal mood and affect - Labs CBC & Chem 7: 11/22/20 09:08 11/20/20 17:26 Labs: Abnormal Lab Results - Last 24 Hours (Table) 11/21/20 11/21/20 11/22/20 Range/Units 17:13 20:11 06:46 WBC (3.8-10.6) k/uL Neutrophils # (1.3-7.7) k/uL Eosinophils # (0-0.7) k/uL POC Glucose (mg/dL) 131 H 182 H 173 H (75-99) mg/dL 11/22/20 11/22/20 Range/Units 09:08 12:27 WBC 13.6 H (3.8-10.6) k/uL Neutrophils # 8.8 H (1.3-7.7) k/uL Eosinophils # 0.9 H (0-0.7) k/uL POC Glucose (mg/dL) 236 H (75-99) mg/dL Microbiology - Last 24 Hours (Table) 11/21/20 16:25 Gram Stain - Preliminary Breast - Left Wound Culture - Preliminary 11/21/20 16:25 Fungal Culture - Preliminary Breast - Left 11/21/20 16:25 Anaerobic Culture - Preliminary Breast - Left 11/20/20 17:35 Blood Culture - Preliminary Blood No Growth after 24 hours 11/20/20 17:35 Blood Culture - Preliminary Blood No Growth after 24 hours Assessment and Plan Assessment: Recurrent Abscess of left breast with cellulitis status post I&D with biopsy Diabetes mellitus type 2 Hypertension Bipolar disorder Anxiety Fibromyalgia Nicotine dependence Plan: Continue on current medication regime, monitoring and symptomatic treatment. Continue on antibiotics.Wound care team, infectious disease consult in place. Cultures pending. Increase ambulation as tolerated. The impression and plan of care has been dictated as directed. : I performed a history and examination of this patient, discussed the same with the dictator. I agree with the dictator's note ,documented as a scribe. Any additional findings or plans will be noted.
[2020-11-22 17:16] LABS: Glucose,Whole Blood 161 mg/dL (75-99)
[2020-11-22] MEDS ORDERED: INSULIN ASPART (NovoLOG) 100 UNIT/ML VIAL SQ SCH (17:30)
[2020-11-22] MEDS: metFORMIN 500 MG TAB PO SCH (17:36)
--- NOTE | 2020-11-22 17:39 | P.PN ---
Subjective Progress Note Date: 11/22/20 Principal diagnosis: Abscess left breast/incision and drainage postop day #1 Manjula is a 50-year-old white female status post incision and drainage of left breast abscess postop day #1. She was initially doing well and was seen by infectious disease antibiotics were changed to Unasyn. Patient was also seen by the wound clinic and a negative pressure wound VAC was placed. The patient however this afternoon spiked a temperature to 102.4 at 16:50pm. The patient does not complain of any shortness of breath or abdominal pain. She does not complain of any increase breast discomfort. However it is noted that she has increased erythema/cellulitic changes of the left breast. Blood culture from 67 was no growth at 24 hours Gram stain and wound culture and 68: Rare PMNs, few gram-negative bacilli, rare gram-positive cocci, anaerobic wound culture no growth after 24 hours Patient's white count 13.6, glucose 161 Objective - Vital Signs Vital signs: Vital Signs Temp 100.8 F H 11/22/20 15:15 Pulse 79 11/22/20 14:10 Resp 16 11/22/20 14:10 BP 114/70 11/22/20 14:10 Pulse Ox 97 11/22/20 08:30 Intake & Output 11/21/20 11/22/20 11/22/20 18:59 06:59 18:59 Intake Total 1010 1060 120 Output Total 353 Balance 657 1060 120 Intake: IV 650 Intake, IV Titration 1060 Amount Dextrose 5%-0.9% NaCl 1, 960 000 ml @ 120 mls/hr IV . Q8H20M [facility] Rx#:[id number] ceFAZolin 1,000 mg In 100 Sodium Chloride 0.9% 50 ml @ 100 mls/hr IVPB Q6H [facility] Rx#:[id number] Oral 360 120 Output: Urine 350 Estimated Blood Loss 3 Other: Voiding Method Toilet # Voids 1 2 - Constitutional General appearance: Present: cooperative - EENT Eyes: Present: EOMI ENT: Present: hearing grossly normal - Neck Neck: Present: normal ROM - Respiratory Respiratory: bilateral: CTA - Cardiovascular Rhythm: regular Heart sounds: normal: S1, S2 - Gastrointestinal General gastrointestinal: Present: soft - Integumentary Integumentary Comment(s): The left breast is evaluated there is erythema extending from the ki placed to the extent of erythema yesterday. A wound VAC is in place The breast is warm and tender to palpation IV site no evidence of infection - Labs CBC & Chem 7: 11/22/20 09:08 11/20/20 17:26 Labs: Abnormal Lab Results - Last 24 Hours (Table) 11/21/20 11/22/20 11/22/20 Range/Units 20:11 06:46 09:08 WBC 13.6 H (3.8-10.6) k/uL Neutrophils # 8.8 H (1.3-7.7) k/uL Eosinophils # 0.9 H (0-0.7) k/uL POC Glucose (mg/dL) 182 H 173 H (75-99) mg/dL 11/22/20 11/22/20 Range/Units 12:27 17:14 WBC (3.8-10.6) k/uL Neutrophils # (1.3-7.7) k/uL Eosinophils # (0-0.7) k/uL POC Glucose (mg/dL) 236 H 161 H (75-99) mg/dL Microbiology - Last 24 Hours (Table) 11/21/20 16:25 Gram Stain - Preliminary Breast - Left Wound Culture - Preliminary 11/21/20 16:25 Fungal Culture - Preliminary Breast - Left 11/21/20 16:25 Anaerobic Culture - Preliminary Breast - Left 11/20/20 17:35 Blood Culture - Preliminary Blood No Growth after 24 hours 11/20/20 17:35 Blood Culture - Preliminary Blood No Growth after 24 hours Assessment and Plan Assessment: Impression: 1. Abscess chronic/recurrent under her left nipple areolar complex 2. Leukocytosis/improved 3. MS 4. Diabetes 5. Degenerative disc disease 6. Temperature increased to 102.4 Plan: 1. Postop day #1 I&D of abscess; wound care as per wound clinic with wound VAC in place 2. Medical management of medical conditions 3. IV antibiotics as per infectious disease 4. Urinalysis 5. Blood cultures 6. Close surveillance of cellulitis left breast consider repeat ultrasound if the cellulitis increases 7. Await recommendations from infectious disease
[2020-11-22] MEDS: NICOTINE 14MG/24HR PATCH TRANSDERM SCH (17:43)
--- NOTE | 2020-11-22 18:33 | XR ---
EXAMINATION TYPE: XR chest 1V portable DATE OF EXAM: 11/22/2020 COMPARISON: 05/27/2019 HISTORY: Fever TECHNIQUE: FINDINGS: There is some mild infiltrate and atelectasis in the left lower lobe. There is probably als o small infiltrate medial right lower lobe. There is no heart failure. Heart size is normal. IMPRESSION: There is some bilateral pneumonia upper lung bases and more on the left side. This appear s new compared to old exam.
[2020-11-22] MEDS ORDERED: VANCOMYCIN IV PER PHARMACY 1 EACH MISC MISCELLANE PRN (18:36)
[2020-11-22] MEDS: BENZOCAINE SPRAY 1 CAN TOPICAL SCH (19:47)
[2020-11-22] MEDS: VANCOMYCIN 1,500 MG in SODIUM CHLORIDE 0.9% 250 ML IVPB SCH (19:54)
[2020-11-22 20:07] LABS: Glucose,Whole Blood 148 mg/dL (75-99)
[2020-11-22] MEDS: MONTELUKAST 10 MG TAB PO SCH (20:28)
--- NOTE | 2020-11-22 21:36 | CONS ---
CONSULTATION DATE OF SERVICE: 11/22/2020 REASON FOR FOLLOWUP: Recurrent left breast abscess. HISTORY OF PRESENT ILLNESS: The patient is a 50-year-old female with past medical history significant for almost 6 year ago in 2014. Culture at that time was positive for . The patient apparently was treated with antibiotics and surgical intervention multiple times. The patient presented to the [facility] ER on November 20 for evaluation of left breast pain, swelling that apparently started on Friday three days before presentation to hospital. The patient denies having history of any trauma. The patient described the pain to be more of a throbbing, intensity about 7 out of 10 and no radiation. The patient did have mild drainage. Denies any fever or any chills. With these symptoms, the patient was evaluated by the ER physician. On arrival to the ER, the patient did have an ultrasound shows complex density behind the nipple, nonspecific size left 3.1 x 2.9 x 3.3 cm. The patient was taken to the OR yesterday afternoon by Dr. Pak and is status post I and D of the left breast abscess and biopsy of the abscess cavity wall. The patient was treated with cefazolin. Infectious Disease consulted for further management of antibiotic therapy. REVIEW OF SYSTEMS: Positive points have been mentioned in HPI. Rest of systems are negative. PAST MEDICAL HISTORY: Recurrent left breast abscess and cellulitis. History of kidney stone, multiple sclerosis, chronic pain syndrome, migraine headache. PAST SURGICAL HISTORY: Drainage of the breast abscess. Benign cyst drained from the brain, D and C, left hand tendon repair. SOCIAL HISTORY: Current everyday smoker. Rarely drinks. No drug use. FAMILY HISTORY: Father with history of coronary artery disease. Father history of dementia and osteoarthritis. ALLERGIES: HYDROCODONE, ERYTHROMYCIN B. MEDICATIONS: The patient is currently on: Tylenol. She is on cefazolin, Cymbalta, Prozac, Dilaudid, Motrin, NovoLog, Singulair, Narcan, Zofran, Bentyl, Lyrica, Inderal, Seroquel and Ultram. PHYSICAL EXAMINATION: Blood pressure is 114/70 with a pulse of 69, temperature 99.8. She is 97% on 2 L nasal cannula. General description: The patient is a middle-aged female lying in bed in no distress. No tachypnea or accessory muscles of respiration use. HEENT: Examination shows no pallor or scleral icterus. Oral mucous membranes dry. NECK: Trachea central. No thyromegaly. LUNGS unlabored breathing, clear to auscultation anteriorly. HEART S1, S2. Regular rate and rhythm. ABDOMEN: Soft, no tenderness. No guarding. No rigidity. EXTREMITIES: No edema of the feet. SKIN: No rash or mass palpable. Examination of the left breast in the presence of the RN did shows the wound is packed. Minimal surrounding swelling and redness. No foul-smelling drainage. NEUROLOGICALLY: The patient is awake, alert, oriented x3. Mood and affect normal. LABS: Hemoglobin is 14.8, white count 13.6, BUN of 8, creatinine 0.80. Electrolytes have been normal. Liver enzymes normal. Ultrasound report as mentioned above. DIAGNOSTIC IMPRESSION AND PLAN: Patient with left breast abscess, recurrent in this patient who is status post drainage of the abscess and biopsy, which is currently pending. Previously did have a culture positive for Peptostreptococcus, questionable similar pathogen. PLAN: 1. Discontinue cefazolin. 2. We will start the patient on Unasyn 3 grams q.6 hours. 3. Local wound care wound has been cultured. 4. We will follow the clinical condition to further adjust medication if needed. Thank you for this consultation. We will follow this patient along with you. MMODL / IJN: [id number] /
[2020-11-23] MEDS: AMPICILLIN-SULBACTAM 3 GM in SODIUM CHLORIDE 0.9% 100 ML IVPB SCH ×5 (00:45→23:17)
[2020-11-23] MEDS: ACETAMINOPHEN TAB 325 MG TAB PO PRN ×3 (01:13→22:23)
[2020-11-23] MEDS: BENZOCAINE SPRAY 1 CAN TOPICAL SCH ×2 (01:47→15:21)
[2020-11-23] MEDS: HYDROmorphone 0.5 MG/0.5 ML SYRINGE IVP PRN ×3 (01:49→21:26)
[2020-11-23 06:46] LABS: Glucose,Whole Blood 158 mg/dL (75-99)
[2020-11-23] MEDS: VANCOMYCIN 1,500 MG in SODIUM CHLORIDE 0.9% 250 ML IVPB SCH ×2 (06:49→18:30)
[2020-11-23] MEDS: INSULIN ASPART (NovoLOG) 100 UNIT/ML VIAL SQ SCH ×4 (06:49→21:32)
[2020-11-23] MEDS: traMADol 50 MG TAB PO PRN ×2 (06:50→18:17)
[2020-11-23] MEDS: PREGABALIN 75 MG CAP PO SCH ×3 (08:19→21:24)
[2020-11-23] MEDS: QUEtiapine 25 MG TAB PO SCH ×2 (08:20→21:23)
[2020-11-23] MEDS: DULoxetine HCL 30 MG CAPSULE.DR PO SCH (08:20)
[2020-11-23] MEDS: FLUoxetine HCL 20 MG CAP PO SCH (08:20)
[2020-11-23] MEDS: metFORMIN 500 MG TAB PO SCH ×2 (08:21→17:31)
[2020-11-23] MEDS: PENTOXIFYLLINE 400 MG TABLET.ER PO SCH ×3 (08:21→17:31)
[2020-11-23] MEDS: PROPRANOLOL 40 MG TAB PO SCH ×3 (08:21→21:24)
[2020-11-23] MEDS: LINAGLIPTIN 5 MG TABLET PO SCH (08:21)
[2020-11-23] MEDS: NICOTINE 14MG/24HR PATCH TRANSDERM SCH (08:23)
[2020-11-23 09:42] LABS: Basophils # (A) 0.1 k/uL (0-0.2); Basophils % (A) 1 %; Eosinophils # (A) 1.1 k/uL (0-0.7); Eosinophils % (A) 9 %; HCT 38.6 % (34.0-46.0); HGB 12.9 gm/dL (11.4-16.0); Lymphocytes # (A) 3.3 k/uL (1.0-4.8); Lymphocytes % (A) 26 %; MCH 31.7 pg (25.0-35.0); MCHC 33.5 g/dL (31.0-37.0); MCV 94.6 fL (80.0-100.0); Mean Platelet Volume 7.7; Monocytes # (A) 0.8 k/uL (0-1.0); Monocytes % (A) 6 %; Neutrophils # (A) 7.2 k/uL (1.3-7.7); Neutrophils % (A) 57 %; Platelet Count 223 k/uL (150-450); RBC 4.08 m/uL (3.80-5.40); WBC 12.6 k/uL (3.8-10.6)
--- NOTE | 2020-11-23 09:48 | P.PN ---
Subjective Progress Note Date: 11/23/20 Principal diagnosis: Abscess left breast/incision and drainage postop day #2 Manjula is a 50-year-old white female status post incision and drainage of left breast abscess postop day #2. She was initially doing well and was seen by infectious disease antibiotics were changed to Unasyn. Patient was also seen by the wound clinic and a negative pressure wound VAC was placed. The patient however yesterday afternoon spiked a temperature to 102.4 at 16:50pm. The patient did not complain of any shortness of breath or abdominal pain. She did not complain of any increase breast discomfort. However it was noted that she has increased erythema/cellulitic changes of the left breast. Blood culture from was no growth at 24 hours Gram stain and wound culture and 68: Rare PMNs, few gram-negative bacilli, rare gram-positive cocci, anaerobic wound culture no growth after 24 hours Patient's white count 13.6, glucose 161 The patient had a chest x-ray performed which revealed atelectasis/possible pneumonia bilateral lower lung bases The patient has been afebrile this morning and is not complaining of any increase breast pain. The area of erythema has diminished. She was started on vancomycin in addition to her Unasyn as per infectious disease. Objective - Vital Signs Vital signs: Vital Signs Temp 98.6 F 11/23/20 08:21 Pulse 81 11/23/20 08:21 Resp 20 11/23/20 08:21 BP 133/73 11/23/20 08:21 Pulse Ox 97 11/23/20 08:21 Intake & Output 11/22/20 11/23/20 11/23/20 18:59 06:59 18:59 Intake Total 120 2330 Balance 120 2330 Intake: Intake, IV Titration 1550 Amount Ampicillin-Sulbactam 3 gm 100 In Sodium Chloride 0.9% 100 ml @ 200 mls/hr IVPB Q6HR [facility] Rx#:[id number] Dextrose 5%-0.9% NaCl 1, 1200 000 ml @ 120 mls/hr IV . Q8H20M [facility] Rx#:[id number] Vancomycin 1,500 mg In 250 Sodium Chloride 0.9% 250 ml @ 125 mls/hr IVPB 0600 ,1800 [facility] Rx#:[id number] Oral 120 780 Other: # Voids 1 - Constitutional General appearance: Present: cooperative - EENT Eyes: Present: EOMI ENT: Present: hearing grossly normal - Neck Neck: Present: normal ROM - Respiratory Respiratory: bilateral: diminished - Cardiovascular Heart sounds: normal: S1, S2 - Integumentary Integumentary Comment(s): Decreased erythema left breast Wound VAC in place and functioning well no evidence of erythema at IV site - Psychiatric Psychiatric: Present: A&O x's 3, appropriate affect, intact judgment & insight - Labs CBC & Chem 7: 11/23/20 07:40 11/20/20 17:26 Labs: Abnormal Lab Results - Last 24 Hours (Table) 11/22/20 11/22/20 11/22/20 Range/Units 12:27 17:14 20:05 WBC (3.8-10.6) k/uL Eosinophils # (0-0.7) k/uL POC Glucose (mg/dL) 236 H 161 H 148 H (75-99) mg/dL 11/23/20 11/23/20 Range/Units 06:44 07:40 WBC 12.6 H (3.8-10.6) k/uL Eosinophils # 1.1 H (0-0.7) k/uL POC Glucose (mg/dL) 158 H (75-99) mg/dL Microbiology - Last 24 Hours (Table) 11/20/20 17:35 Blood Culture - Preliminary Blood No Growth after 48 hours 11/20/20 17:35 Blood Culture - Preliminary Blood No Growth after 48 hours 11/21/20 16:25 Gram Stain - Preliminary Breast - Left Wound Culture - Preliminary Assessment and Plan Assessment: Impression: 1. Abscess chronic/recurrent under her left nipple areolar complex POD #2 I&D 2. Leukocytosis/improved 3. MS 4. Diabetes 5. Degenerative disc disease 6. Temperature increased to 102.4, now decreased 7. CXR possible bilateral pneumonia Plan: 1. Postop day #2 I&D of abscess; wound care as per wound clinic with wound VAC in place 2. Medical management of medical conditions 3. IV antibiotics as per infectious disease/ added vancomycin 4. Urinalysis 5. Blood cultures pending 6. Close surveillance of cellulitis left breast this has improved 7. Incentive spirometry 8. Treatment of possible pneumonia as per infectious disease
[2020-11-23 10:01] LABS: African American GFR (CKD) >90 (>60 ml/min/1.73 sqM); Anion Gap 4 mmol/L; Blood Urea Nitrogen 4 mg/dL (7-17); Calcium 8.2 mg/dL (8.4-10.2); Carbon Dioxide 31 mmol/L (22-30); Chloride 104 mmol/L (98-107); Glucose 148 mg/dL (74-99); Non-African American GFR(CKD) >90 (>60 ml/min/1.73 sqM); Potassium 4.2 mmol/L (3.5-5.1); Sodium 139 mmol/L (137-145)
--- NOTE | 2020-11-23 10:20 | P.PN ---
Subjective Progress Note Date: 11/23/20 Manjula Harris is a 50 yo F with hx recurrent cellulitis and abscess of the L breast, T2DM, bipolar disorder, fibromyalgia who presented to the ED complaining of worsening pain and swelling of her L breast over the past few days. She denies any drainage but has been having pain and chills as well as r educed appetite. She last had an infection of the breast around 2014. On presentation vitals stable, afebrile, WBC 19k, COVID negative. Breast US with subareolar fluid collection. 11/22/2020 underwent I&D of left breast abscess with biopsy. Tolerated procedure well. Maintained on IV antibiotics. Reports pain improving. T-max 99.6, WBC 13.6. Maintaining O2 sats in the high 90s on 2 L nasal cannula. Ambulating, tolerating exertion well. Denies chest pain, palpitations or shortness of breath. 11/23/2020 postop day #2, wound VAC applied yesterday as per wound care team. Chest x-ray last night reporting atelectasis, possible bilateral pneumonia upper lung bases, more in the left side.Afebrile, T-max 102.4, WBC decreased to 12.6, cultures pending. Evaluated by infectious disease, antibiotics adjusted, currently on Unasyn and vancomycin. Renal function stable. Maintained O2 sats in the high 90s on 2 L nasal cannula. Blood sugars controlled. Tender, pain controlled. Objective - Vital Signs Vital signs: Vital Signs Temp 98.6 F 11/23/20 08:21 Pulse 81 11/23/20 08:21 Resp 20 11/23/20 08:21 BP 133/73 11/23/20 08:21 Pulse Ox 97 11/23/20 08:21 Intake & Output 11/22/20 11/23/20 11/23/20 18:59 06:59 18:59 Intake Total 120 2330 Balance 120 2330 Intake: Intake, IV Titration 1550 Amount Ampicillin-Sulbactam 3 gm 100 In Sodium Chloride 0.9% 100 ml @ 200 mls/hr IVPB Q6HR [facility] Rx#:[id number] Dextrose 5%-0.9% NaCl 1, 1200 000 ml @ 120 mls/hr IV . Q8H20M [facility] Rx#:[id number] Vancomycin 1,500 mg In 250 Sodium Chloride 0.9% 250 ml @ 125 mls/hr IVPB 0600 ,1800 [facility] Rx#:[id number] Oral 120 780 Other: # Voids 1 - Exam General: Sitting up in bed, NAD. Vitals reviewed Eyes: PERRL, EOMI, conjunctiva normal HENT: normocephalic, mucus membranes moist Neck: supple, no JVD Lungs: normal respiratory effort, no wheezes or rales CV: Regular rate and rhythm, no murmur. Peripheral pulses 2+ Abdomen: soft, nondistended, no organomegaly Skin: warm and dry. L breast tenderness and erythema, wound VAC present Neuro: A&Ox3, normal mood and affect Microbiology 11/20/20 17:35 Blood Blood Culture - Preliminary No Growth after 48 hours 11/20/20 17:35 Blood Blood Culture - Preliminary No Growth after 48 hours 11/21/20 16:25 Breast - Left Gram Stain - Preliminary 11/21/20 16:25 Breast - Left Wound Culture - Preliminary 11/21/20 16:25 Breast - Left Fungal Culture - Preliminary 11/21/20 16:25 Breast - Left Anaerobic Culture - Preliminary - Labs CBC & Chem 7: 11/23/20 07:40 11/20/20 17:26 Labs: Abnormal Lab Results - Last 24 Hours (Table) 11/22/20 11/22/20 11/22/20 Range/Units 12:27 17:14 20:05 WBC (3.8-10.6) k/uL Eosinophils # (0-0.7) k/uL POC Glucose (mg/dL) 236 H 161 H 148 H (75-99) mg/dL 11/23/20 11/23/20 Range/Units 06:44 07:40 WBC 12.6 H (3.8-10.6) k/uL Eosinophils # 1.1 H (0-0.7) k/uL POC Glucose (mg/dL) 158 H (75-99) mg/dL Microbiology - Last 24 Hours (Table) 11/20/20 17:35 Blood Culture - Preliminary Blood No Growth after 48 hours 11/20/20 17:35 Blood Culture - Preliminary Blood No Growth after 48 hours 11/21/20 16:25 Gram Stain - Preliminary Breast - Left Wound Culture - Preliminary Assessment and Plan Assessment: Recurrent Abscess of left breast with cellulitis status post I&D with biopsy, cultures pending. Wound VAC present Bilateral atelectasis, possible pneumonia Diabetes mellitus type 2 Hypertension Bipolar disorder Anxiety Fibromyalgia Nicotine dependence Plan: Continue on current medication regime, monitoring and symptomatic treatment. Cultures pending. Antibiotics as per ID. Wound VAC/wound care as per wound care team. Aggressive pulmonary toileting with incentive spirometer reinforced. Increase ambulation as tolerated. Senokot added to med regimen.KVO fluids. The impression and plan of care has been dictated as directed. : I performed a history and examination of this patient, discussed the same with the dictator. I agree with the dictator's note ,documented as a scribe. Any additional findings or plans will be noted.
[2020-11-23] MEDS: SENNOSIDES-DOCUSATE SODIUM 1 EACH TAB PO SCH ×2 (11:59→21:24)
[2020-11-23] MEDS: PANTOPRAZOLE 40 MG/10 ML VIAL IVP SCH (11:59)
[2020-11-23 12:41] LABS: Glucose,Whole Blood 118 mg/dL (75-99)
[2020-11-23 17:41] LABS: Glucose,Whole Blood 112 mg/dL (75-99)
[2020-11-23] MEDS: IBUPROFEN 400 MG TAB PO PRN (19:45)
[2020-11-23] MEDS: SODIUM CHLORIDE 0.9% 1,000 ML IV SCH (21:16)
[2020-11-23] MEDS: DEXTROSE 5%-0.9% NACL 1,000 ML IV SCH (21:17)
[2020-11-23] MEDS: MONTELUKAST 10 MG TAB PO SCH (21:24)
[2020-11-23 21:33] LABS: Glucose,Whole Blood 126 mg/dL (75-99)
--- NOTE | 2020-11-23 23:56 | PN ---
PROGRESS NOTE DATE OF SERVICE: 11/23/2020. REASON: Left breast abscess and cellulitis. INTERVAL HISTORY: Patient overall fever pattern has improved. She did have fever of 102 last evening. Afebrile this morning. The patient is feeling better. Left breast pain and swelling has decreased. No chest pain, shortness of breath or cough. No nausea, vomiting or diarrhea. PHYSICAL EXAMINATION: Blood pressure is 146/80 with a pulse of 83, temperature 98.3. She is 97% on 2 L nasal cannula. General description is a middle-aged female lying in bed in no distress. Respiratory system: Unlabored breathing, clear to auscultation anteriorly. Heart S1, S2. Regular rate and rhythm. ABDOMEN: Soft, no tenderness. LABS: Hemoglobin is 12.8, white count 12.7, BUN of 4, creatinine 0.56. DIAGNOSTIC IMPRESSION AND PLAN: Patient with left breast abscess status post surgical drainage. Culture showing Enterococcus. Patient is covered with Unasyn and vancomycin to continue while waiting for the sensitivity of this pathogen to determine discharge antibiotics. Continue supportive care. MMODL / IJN: [id number] /
[2020-11-24] MEDS: AMPICILLIN-SULBACTAM 3 GM in SODIUM CHLORIDE 0.9% 100 ML IVPB SCH ×4 (05:12→23:07)
[2020-11-24] MEDS: VANCOMYCIN 1,500 MG in SODIUM CHLORIDE 0.9% 250 ML IVPB SCH ×2 (06:07→18:37)
[2020-11-24 06:30] LABS: Basophils # (A) 0.1 k/uL (0-0.2); Basophils % (A) 0 %; Eosinophils # (A) 1.5 k/uL (0-0.7); Eosinophils % (A) 13 %; HCT 38.3 % (34.0-46.0); HGB 12.8 gm/dL (11.4-16.0); Lymphocytes # (A) 2.9 k/uL (1.0-4.8); Lymphocytes % (A) 25 %; MCHC 33.4 g/dL (31.0-37.0); MCV 92.9 fL (80.0-100.0); Monocytes # (A) 0.6 k/uL (0-1.0); Monocytes % (A) 5 %; Neutrophils # (A) 6.5 k/uL (1.3-7.7); Neutrophils % (A) 55 %; Platelet Count 246 k/uL (150-450); RBC 4.13 m/uL (3.80-5.40); RDW 13.9 % (11.5-15.5); WBC 11.8 k/uL (3.8-10.6)
[2020-11-24 06:33] LABS: Glucose,Whole Blood 103 mg/dL (75-99)
[2020-11-24 06:39] LABS: African American GFR (CKD) >90 (>60 ml/min/1.73 sqM); Anion Gap 4 mmol/L; Blood Urea Nitrogen 3 mg/dL (7-17); Calcium 8.3 mg/dL (8.4-10.2); Carbon Dioxide 31 mmol/L (22-30); Chloride 108 mmol/L (98-107); Glucose 93 mg/dL (74-99); Non-African American GFR(CKD) >90 (>60 ml/min/1.73 sqM); Potassium 3.4 mmol/L (3.5-5.1); Sodium 143 mmol/L (137-145)
[2020-11-24] MEDS: INSULIN ASPART (NovoLOG) 100 UNIT/ML VIAL SQ SCH ×4 (07:55→21:05)
[2020-11-24] MEDS: PANTOPRAZOLE 40 MG/10 ML VIAL IVP SCH (08:04)
[2020-11-24] MEDS: FLUoxetine HCL 20 MG CAP PO SCH (08:04)
[2020-11-24] MEDS: PENTOXIFYLLINE 400 MG TABLET.ER PO SCH ×3 (08:04→17:53)
[2020-11-24] MEDS: metFORMIN 500 MG TAB PO SCH ×2 (08:04→17:53)
[2020-11-24] MEDS: DULoxetine HCL 30 MG CAPSULE.DR PO SCH (08:04)
[2020-11-24] MEDS: PREGABALIN 75 MG CAP PO SCH ×3 (08:04→21:04)
[2020-11-24] MEDS: QUEtiapine 25 MG TAB PO SCH ×2 (08:05→21:05)
[2020-11-24] MEDS: PROPRANOLOL 40 MG TAB PO SCH ×3 (08:05→21:05)
[2020-11-24] MEDS: LINAGLIPTIN 5 MG TABLET PO SCH (08:05)
[2020-11-24] MEDS: SODIUM CHLORIDE 0.9% 1,000 ML IV SCH (08:05)
[2020-11-24] MEDS: SENNOSIDES-DOCUSATE SODIUM 1 EACH TAB PO SCH ×2 (08:06→21:05)
[2020-11-24] MEDS: NICOTINE 14MG/24HR PATCH TRANSDERM SCH (08:14)
--- NOTE | 2020-11-24 09:00 | P.PN ---
Subjective Progress Note Date: 11/24/20 Principal diagnosis: Abscess left breast/incision and drainage postop day #3 Manjula is a 50-year-old white female status post incision and drainage of left breast abscess postop day #3. She was initially doing well and was seen by infectious disease antibiotics were changed to Unasyn, vancomycin added. Cultures grew enterococcus. Patient was also seen by the wound clinic and a negative pressure wound VAC was placed. She had spiked a temperature approximately 2 days ago but has now been afebrile. The patient did not complain of any shortness of breath or abdominal pain. She did not complain of any increase breast discomfort. A chest x-ray was performed which showed question of atelectasis versus pneumonia. Blood culture from was no growth at 24 hours Gram stain and wound culture and 68: Rare PMNs, few gram-negative bacilli, rare gram-positive cocci, culture positive for enterococcus anaerobic wound culture no growth after 24 hours The patient had a chest x-ray performed which revealed atelectasis/possible pneumonia bilateral lower lung bases The patient has been afebrile this morning and is not complaining of any increase breast pain. The area of erythema has diminished. She was started on vancomycin in addition to her Unasyn as per infectious disease. We are awaiting sensitivities to determine home antibiotics as per infectious disease. Objective - Vital Signs Vital signs: Vital Signs Temp 98.4 F 11/24/20 08:00 Pulse 69 11/24/20 08:00 Resp 18 11/24/20 08:00 BP 132/82 11/24/20 08:00 Pulse Ox 93 L 11/24/20 08:00 Intake & Output 11/23/20 11/24/20 11/24/20 18:59 06:59 18:59 Intake Total 120 200 240 Balance 120 200 240 Intake: Intake, IV Titration 200 Amount Ampicillin-Sulbactam 3 gm 200 In Sodium Chloride 0.9% 100 ml @ 200 mls/hr IVPB Q6HR [facility] Rx#:[id number] Oral 120 240 Other: # Voids 2 1 # Bowel Movements 1 - Constitutional General appearance: Present: cooperative - EENT Eyes: Present: EOMI - Respiratory Details: Mildly decreased at lung bases - Cardiovascular Heart sounds: normal: S1, S2 - Integumentary Integumentary Comment(s): Decreased erythema of the left breast Wound VAC in place - Psychiatric Psychiatric: Present: A&O x's 3, appropriate affect, intact judgment & insight - Labs CBC & Chem 7: 11/24/20 05:58 11/24/20 05:58 Labs: Abnormal Lab Results - Last 24 Hours (Table) 11/23/20 11/23/20 11/23/20 Range/Units 07:40 07:40 12:39 WBC 12.6 H (3.8-10.6) k/uL Eosinophils # 1.1 H (0-0.7) k/uL Potassium (3.5-5.1) mmol/L Chloride (98-107) mmol/L Carbon Dioxide 31 H (22-30) mmol/L BUN 4 L (7-17) mg/dL Glucose 148 H (74-99) mg/dL POC Glucose (mg/dL) 118 H (75-99) mg/dL Calcium 8.2 L (8.4-10.2) mg/dL 11/23/20 11/23/20 11/24/20 Range/Units 17:39 21:31 05:58 WBC 11.8 H (3.8-10.6) k/uL Eosinophils # 1.5 H (0-0.7) k/uL Potassium (3.5-5.1) mmol/L Chloride (98-107) mmol/L Carbon Dioxide (22-30) mmol/L BUN (7-17) mg/dL Glucose (74-99) mg/dL POC Glucose (mg/dL) 112 H 126 H (75-99) mg/dL Calcium (8.4-10.2) mg/dL 11/24/20 11/24/20 Range/Units 05:58 06:31 WBC (3.8-10.6) k/uL Eosinophils # (0-0.7) k/uL Potassium 3.4 L (3.5-5.1) mmol/L Chloride 108 H (98-107) mmol/L Carbon Dioxide 31 H (22-30) mmol/L BUN 3 L (7-17) mg/dL Glucose (74-99) mg/dL POC Glucose (mg/dL) 103 H (75-99) mg/dL Calcium 8.3 L (8.4-10.2) mg/dL Microbiology - Last 24 Hours (Table) 11/22/20 17:52 Blood Culture - Preliminary Blood No Growth after 24 hours 11/22/20 17:52 Blood Culture - Preliminary Blood No Growth after 24 hours 11/21/20 16:25 Gram Stain - Preliminary Breast - Left Wound Culture - Preliminary Group D Enterococcus 11/20/20 17:35 Blood Culture - Preliminary Blood No Growth after 72 hours 11/20/20 17:35 Blood Culture - Preliminary Blood No Growth after 72 hours Assessment and Plan Assessment: Impression: 1. Abscess chronic/recurrent under her left nipple areolar complex POD #3 I&D 2. Leukocytosis/improved 3. MS 4. Diabetes 5. Degenerative disc disease 6. Temperature increased to 102.4, now afebrile 7. CXR possible bilateral pneumonia Plan: 1. Postop day #3 I&D of abscess; wound care as per wound clinic with wound VAC in place 2. Medical management of medical conditions 3. IV antibiotics as per infectious disease/ added vancomycin; awaiting sensitivities 4. Urinalysis 5. Blood cultures pending 6. Close surveillance of cellulitis left breast this has improved 7. Incentive spirometry 8. Treatment of possible pneumonia as per infectious disease 9. Patient ready for discharge from surgical standpoint will see patient in the next week and office
[2020-11-24] MEDS ORDERED: Potassium Replacement Protocol 1 EACH MISC MISCELLANE PRN (10:15)
[2020-11-24] MEDS ORDERED: Magnesium Replacement Protocol 1 EACH MISC MISCELLANE PRN (10:16)
[2020-11-24] MEDS: POTASSIUM CHLORIDE ER 20 MEQ TAB.ER PO SCH ×2 (10:58→12:23)
--- NOTE | 2020-11-24 11:17 | P.DS ---
Providers Date of admission: 11/22/20 21:15 Expected date of discharge: 11/24/20 Attending physician: William Mistry MD Consults: 11/20/20 20:02 Consult Physician Urgent Consulting Provider: Joellen Pierre Consult Reason/Comments: recurrent breast abscess Do you want consulting provider notified?: Already Contacted 11/21/20 17:05 Consult Physician Routine Consulting Provider: Jessica Mi Consult Reason/Comments: recurring left breast abcess Do you want consulting provider notified?: Yes Primary care physician: Lauryn Rey Hospital Course: Final Diagnoses: Recurrent Abscess of left breast with cellulitis status post I&D with biopsy, culture reporting enterococcus Group D. Wound VAC present Bilateral atelectasis, possible pneumonia Diabetes mellitus type 2 Hypertension Bipolar disorder Anxiety Fibromyalgia Nicotine dependence Hospital course:Manjula Harris is a 50 yo F with hx recurrent cellulitis and abscess of the L breast, T2DM, bipolar disorder, fibromyalgia who presented to the ED complaining of worsening pain and swelling of her L breast over the past few days. She denies any drainage but has been having pain and chills as well as reduced appetite. She last had an infection of the breast around 2014. On presentation vitals stable, afebrile, WBC 19k, COVID negative. Breast US with subareolar fluid collection. 11/22/2020 underwent I&D of left breast abscess with biopsy. Tolerated procedure well. Maintained on IV antibiotics. Reports pain improving. T-max 99.6, WBC 13.6. Maintaining O2 sats in the high 90s on 2 L nasal cannula. Ambulating, tolerating exertion well. Denies chest pain, palpitations or shortness of breath. 11/23/2020 postop day #2, wound VAC applied yesterday as per wound care team. Chest x-ray last night reporting atelectasis, possible bilateral pneumonia upper lung bases, more in the left side.Afebrile, T-max 102.4, WBC decreased to 12.6, cultures pending. Evaluated by infectious disease, antibiotics adjusted, currently on Unasyn and vancomycin. Renal function stable. Maintained O2 sats in the high 90s on 2 L nasal cannula. Blood sugars controlled. Tender, pain controlled. Significant clinical improvement. Pain controlled. Afebrile continue on antibiotics as per infectious disease. Cleared by surgery for discharge. Patient will be discharged to [facility] subacute rehab in a stable condition with guarded prognosis pending final culture sensitivities/DC antibiotic recommendations, clearance per ID, wound care per wound care team and potassium/magnesium replacements . Provigil & Dalfampridine on hold while At Subacute rehab. Microbiology 11/22/20 17:52 Blood Blood Culture - Preliminary No Growth after 24 hours 11/22/20 17:52 Blood Blood Culture - Preliminary No Growth after 24 hours 11/21/20 16:25 Breast - Left Gram Stain - Preliminary 11/21/20 16:25 Breast - Left Wound Culture - Preliminary Group D Enterococcus 11/20/20 17:35 Blood Blood Culture - Preliminary No Growth after 72 hours 11/20/20 17:35 Blood Blood Culture - Preliminary No Growth after 72 hours 11/21/20 16:25 Breast - Left Fungal Culture - Preliminary 11/21/20 16:25 Breast - Left Anaerobic Culture - Preliminary The impression and plan of care has been dictated as directed. : I performed a history and examination of this patient, discussed the same with the dictator. I agree with the dictator's note ,documented as a scribe. Any additional findings or plans will be noted. Patient Condition at Discharge: Stable Plan - Discharge Summary New Discharge Prescriptions: New Acetaminophen Tab [Tylenol] 650 mg PO Q6HR PRN tab PRN Reason: Mild Pain Or Fever > 100.5 INSULIN LISPRO (HumaLOG) [humaLOG] 0 unit SQ ACHS #1 vial Nicotine 14Mg/24Hr Patch [Habitrol] 1 patch TRANSDERM DAILY patch Sennosides-Docusate Sodium [Senokot-S] 2 each PO BID tab traMADol HCl [Ultram] 50 mg PO Q6H PRN tab PRN Reason: Pain Pantoprazole Sodium [Protonix] 40 mg PO DAILY #30 tablet.dr Mackay Montelukast [Singulair] 10 mg PO HS Propranolol [Inderal] 40 mg PO TID Aspirin 81 mg PO DAILY tiZANidine [Zanaflex] 4 mg PO BID PRN PRN Reason: Pain Ascorbic Acid [Vitamin C] 500 mg PO BID Cetirizine HCl [Zyrtec] 10 mg PO DAILY Betamethasone Dipropionate [Diprolene AF 0.05% Cream] 1 applic TOPICAL DAILY PRN PRN Reason: TOE/BREAST Atorvastatin [Lipitor] 40 mg PO DAILY sitaGLIPtin PHOS/metFORMIN HCL [Janumet 50-1,000 mg Tablet] 1 tab PO BID Tysabri Infusion 1 dose IV QMONTHLY Umeclidinium [place] [Incruse Ellipta] 1 puff INHALATION RT-DAILY Pentoxifylline 400 mg PO TID Meloxicam 7.5 mg PO DAILY PRN PRN Reason: Pain QUEtiapine FUMARATE [SEROquel XR] 150 mg PO HS FLUoxetine HCL [PROzac] 20 mg PO DAILY Cholecalciferol [Vitamin D3 (25 Mcg = 1000 Iu)] 50 mcg PO DAILY DULoxetine HCL [Cymbalta] 30 mg PO DAILY amLODIPine [Norvasc] 10 mg PO DAILY glipiZIDE XL [Glucotrol XL] 10 mg PO BID Pregabalin [Lyrica] 150 mg PO TID #9 cap Discontinued Clotrimazole Cream [Lotrimin Cream] 1 applic TOPICAL DAILY Discharge Medication List Montelukast [Singulair] 10 mg PO HS 08/26/16 [History] Aspirin 81 mg PO DAILY 06/24/18 [History] Propranolol [Inderal] 40 mg PO TID 06/24/18 [History] Ascorbic Acid [Vitamin C] 500 mg PO BID 07/02/18 [History] tiZANidine [Zanaflex] 4 mg PO BID PRN 07/02/18 [History] Atorvastatin [Lipitor] 40 mg PO DAILY 05/27/19 [History] Betamethasone Dipropionate [Diprolene AF 0.05% Cream] 1 applic TOPICAL DAILY PRN 05/27/19 [History] Cetirizine HCl [Zyrtec] 10 mg PO DAILY 05/27/19 [History] Cholecalciferol [Vitamin D3 (25 Mcg = 1000 Iu)] 50 mcg PO DAILY 11/20/20 [History] DULoxetine HCL [Cymbalta] 30 mg PO DAILY 11/20/20 [History] FLUoxetine HCL [PROzac] 20 mg PO DAILY 11/20/20 [History] Meloxicam 7.5 mg PO DAILY PRN 11/20/20 [History] Pentoxifylline 400 mg PO TID 11/20/20 [History] QUEtiapine FUMARATE [SEROquel XR] 150 mg PO HS 11/20/20 [History] Tysabri Infusion 1 dose IV QMONTHLY 11/20/20 [History] Umeclidinium [place] [Incruse Ellipta] 1 puff INHALATION RT-DAILY 11/20/20 [History] amLODIPine [Norvasc] 10 mg PO DAILY 11/20/20 [History] glipiZIDE XL [Glucotrol XL] 10 mg PO BID 11/20/20 [History] sitaGLIPtin PHOS/metFORMIN HCL [Janumet 50-1,000 mg Tablet] 1 tab PO BID 11/20/20 [History] Acetaminophen Tab [Tylenol] 650 mg PO Q6HR PRN tab 11/24/20 [Rx] INSULIN LISPRO (HumaLOG) [humaLOG] 0 unit SQ ACHS #1 vial 11/24/20 [Rx] Nicotine 14Mg/24Hr Patch [Habitrol] 1 patch TRANSDERM DAILY patch 11/24/20 [Rx] Pantoprazole Sodium [Protonix] 40 mg PO DAILY #30 tablet. 11/24/20 [Rx] Pregabalin [Lyrica] 150 mg PO TID #9 cap 11/24/20 [Rx] Sennosides-Docusate Sodium [Senokot-S] 2 each PO BID tab 11/24/20 [Rx] traMADol HCl [Ultram] 50 mg PO Q6H PRN tab 11/24/20 [Rx] Follow up Appointment(s)/Referral(s): William Mistry MD [STAFF PHYSICIAN] - 1 Week Activity/Diet/Wound Care/Special Instructions: [facility].POtassium replacement, Magnesium pending.COnfirm Surgery/wound care F/U prior to dc. Antibx as per ID.WOund care as per wound care team/surgery. Provigil & Dalfampridine on hold while At Subacute rehab
[2020-11-24] MEDS: MAGNESIUM SULFATE-D5W PMX 1 GM in DEXTROSE/WATER 1 100ML.BAG IVPB SCH ×2 (12:23→13:26)
[2020-11-24 12:30] LABS: Glucose,Whole Blood 115 mg/dL (75-99)
[2020-11-24] MEDS: traMADol 50 MG TAB PO PRN (13:29)
[2020-11-24] MEDS: BENZOCAINE SPRAY 1 CAN TOPICAL SCH (15:39)
[2020-11-24] MEDS: ACETAMINOPHEN TAB 325 MG TAB PO PRN (15:39)
[2020-11-24] MEDS ORDERED: VANCOMYCIN TROUGH DUE 1 EACH MISC MISCELLANE ONE (17:00)
[2020-11-24 17:43] LABS: Glucose,Whole Blood 123 mg/dL (75-99)
--- NOTE | 2020-11-24 19:43 | PN ---
PROGRESS NOTE DATE OF SERVICE: 11/24/2020 REASON FOR FOLLOWUP: Left breast abscess. INTERVAL HISTORY: Patient is currently afebrile. Patient is breathing comfortably. Overall pain and discomfort to the left breast is decreased. The patient denies any chest pain, shortness of breath or cough. No abdominal pain or diarrhea. PHYSICAL EXAMINATION: Her blood pressure 118/70 with a pulse of 90, temperature 98.9. She is 95% on room air. General description is a middle-aged female up in the bed in no distress. Respiratory system: Unlabored breathing, clear to auscultation anteriorly. Heart S1, S2. Regular rate and rhythm. Abdomen soft, no tenderness. Left breast is currently covered with a wound VAC. LABS: Hemoglobin is 12.1, white count 11.8, BUN of 13, creatinine 0.57. Wound culture showing group D Enterococcus. Blood culture negative. DIAGNOSTIC IMPRESSION AND PLAN: Patient with left breast abscess status post drainage of the abscess. Culture showing Enterococcus sensitivity still pending. Will wait for the sensitivity to finalize to determine discharge antibiotics and continue supportive care. MMODL / IJN: [id number] /
[2020-11-24 20:57] LABS: Glucose,Whole Blood 100 mg/dL (75-99)
[2020-11-24] MEDS: MONTELUKAST 10 MG TAB PO SCH (21:05)
[2020-11-25] MEDS: IBUPROFEN 400 MG TAB PO PRN (03:57)
[2020-11-25] MEDS: AMPICILLIN-SULBACTAM 3 GM in SODIUM CHLORIDE 0.9% 100 ML IVPB SCH ×4 (05:02→23:34)
[2020-11-25 06:18] LABS: Glucose,Whole Blood 102 mg/dL (75-99)
[2020-11-25] MEDS: PANTOPRAZOLE 40 MG TABLET PO SCH (06:20)
[2020-11-25] MEDS: PENTOXIFYLLINE 400 MG TABLET.ER PO SCH ×3 (06:20→17:19)
[2020-11-25] MEDS: INSULIN ASPART (NovoLOG) 100 UNIT/ML VIAL SQ SCH ×4 (06:20→20:10)
[2020-11-25] MEDS: metFORMIN 500 MG TAB PO SCH ×2 (06:20→17:19)
[2020-11-25] MEDS: VANCOMYCIN 1,500 MG in SODIUM CHLORIDE 0.9% 250 ML IVPB SCH ×2 (06:20→18:33)
[2020-11-25 06:49] LABS: ALT 15 U/L (4-34); AST 23 U/L (14-36); African American GFR (CKD) >90 (>60 ml/min/1.73 sqM); Albumin 3.3 g/dL (3.5-5.0); Alkaline Phosphatase 66 U/L (38-126); Anion Gap 8 mmol/L; Blood Urea Nitrogen 4 mg/dL (7-17); Calcium 8.8 mg/dL (8.4-10.2); Carbon Dioxide 26 mmol/L (22-30); Chloride 109 mmol/L (98-107); Glucose 148 mg/dL (74-99); Non-African American GFR(CKD) >90 (>60 ml/min/1.73 sqM); Sodium 143 mmol/L (137-145); Total Bilirubin 0.4 mg/dL (0.2-1.3); Total Protein 5.5 g/dL (6.3-8.2)
[2020-11-25] MEDS: PREGABALIN 75 MG CAP PO SCH ×3 (08:42→21:04)
[2020-11-25] MEDS: LINAGLIPTIN 5 MG TABLET PO SCH (08:43)
[2020-11-25] MEDS: FLUoxetine HCL 20 MG CAP PO SCH (08:43)
[2020-11-25] MEDS: PROPRANOLOL 40 MG TAB PO SCH ×3 (08:43→21:04)
[2020-11-25] MEDS: DULoxetine HCL 30 MG CAPSULE.DR PO SCH (08:43)
[2020-11-25] MEDS: QUEtiapine 25 MG TAB PO SCH ×2 (08:44→21:04)
[2020-11-25] MEDS: SENNOSIDES-DOCUSATE SODIUM 1 EACH TAB PO SCH ×2 (08:44→21:05)
[2020-11-25] MEDS: SODIUM CHLORIDE 0.9% 1,000 ML IV SCH (08:45)
[2020-11-25] MEDS: NICOTINE 14MG/24HR PATCH TRANSDERM SCH (08:45)
[2020-11-25] MEDS: BENZOCAINE SPRAY 1 CAN TOPICAL SCH (08:46)
[2020-11-25 12:22] LABS: Glucose,Whole Blood 123 mg/dL (75-99)
[2020-11-25 17:22] LABS: Glucose,Whole Blood 97 mg/dL (75-99)
[2020-11-25] MEDS: traMADol 50 MG TAB PO PRN (19:45)
[2020-11-25 19:57] LABS: Glucose,Whole Blood 115 mg/dL (75-99)
[2020-11-25] MEDS: MONTELUKAST 10 MG TAB PO SCH (21:04)
[2020-11-25] MEDS: HYDROmorphone 0.5 MG/0.5 ML SYRINGE IVP PRN (21:23)
--- NOTE | 2020-11-25 21:54 | P.PN ---
Subjective Progress Note Date: 11/25/20 Principal diagnosis: Left Breast Abscess Ms. Manjula Harris is a 50 yo F with hx recurrent cellulitis and abscess of the L breast, T2DM, bipolar disorder, fibromyalgia who presented to the ED complaining of worsening pain and swelling of her L breast over the past few days. She denies any drainage but has been having pain and chills as well as reduced appetite. She last had an infection of the breast around 2014. On presentation vitals stable, afebrile, WBC 19k, COVID negative. Breast US with subareolar fluid collection.Later she underwent I&D of left breast abscess with biopsy. Tolerated procedure well. Maintained on IV antibioticsand has a wound VAC in place. Chest x-ray reporting atelectasis, possible bilateral pneumonia upper lung bases, more in the left side. Evaluated by infectious disease, antibiotics adjusted, currently on Unasyn and vancomycin. On 11/25/2020-patient was seen and examined at bedside. Patient was supposed to be discharged to rehab facility yesterday, but she decided that she would want to go home with home health care so the discharge was held yesterday. Patient is comfortably lying in bed appears to be no acute distress. She states she still has some left breast pain but better. She denies having any chest pain or palpitations. No cough or difficulty breathing. No abdominal pain nausea vomiting or diarrhea. On reviewing the vitals temperature of 98.2, heart rate 78, respiratory 18, blood pressure 160 x 100, saturating at 93% on room air on reviewing the labs sodium 143, potassium 4, chloride 109, bicarb 26, BUN 4, creatinine 0.56 albumin 3.3 Active Medications Acetaminophen (Acetaminophen Tab 325 Mg Tab) 650 mg PO Q6HR PRN PRN Reason: Mild Pain or Fever > 100.5 Last Admin: 11/24/20 15:39 Dose: 650 mg Documented by: Benzocaine (Benzocaine [place] 1 Can) 1 spray TOPICAL DIRECTED [facility] Last Admin: 11/25/20 08:46 Dose: Not Given Documented by: Duloxetine HCl (Duloxetine Hcl 30 Mg Capsule.Dr) 30 mg PO DAILY [facility] Last Admin: 11/25/20 08:43 Dose: 30 mg Documented by: Fluoxetine HCl (Fluoxetine Hcl 20 Mg Cap) 20 mg PO DAILY [facility] Last Admin: 11/25/20 08:43 Dose: 20 mg Documented by: Hydromorphone HCl (Hydromorphone 0.5 Mg/0.5 Ml Syringe) 0.5 mg IVP Q4HR PRN PRN Reason: Pain Last Admin: 11/25/20 21:23 Dose: 0.5 mg Documented by: Ampicillin Sodium/Sulbactam (Sodium 3 gm/ Sodium Chloride) 100 mls @ 200 mls/hr IVPB Q6HR [facility] Last Admin: 11/25/20 17:20 Dose: 200 mls/hr Documented by: Vancomycin HCl 1,500 mg/ (Sodium Chloride) 250 mls @ 125 mls/hr IVPB 0600,1800 [facility] Last Admin: 11/25/20 18:33 Dose: 125 mls/hr Documented by: Sodium Chloride (Saline 0.9%) 1,000 mls @ 20 mls/hr IV .Q24H [facility] Last Admin: 11/25/20 08:45 Dose: 20 mls/hr Documented by: Ibuprofen (Ibuprofen 400 Mg Tab) 400 mg PO Q6HR PRN PRN Reason: Mild Pain or Fever > 100.5 Last Admin: 11/25/20 03:57 Dose: 400 mg Documented by: Insulin Aspart (Insulin Aspart (Novolog) 100 Unit/Ml Vial) 0 unit SQ ACHS [facility]; Protocol Last Admin: 11/25/20 20:10 Dose: Not Given Documented by: Linagliptin (Linagliptin 5 Mg Tablet) 5 mg PO DAILY [facility] Last Admin: 11/25/20 08:43 Dose: 5 mg Documented by: Metformin HCl (Metformin 500 Mg Tab) 1,000 mg PO AC-BID [facility] Last Admin: 11/25/20 17:19 Dose: 1,000 mg Documented by: Miscellaneous Information (Potassium Replacement Protocol 1 Each Misc) 1 each MISCELLANE DAILY PRN; Protocol PRN Reason: Per Protocol Miscellaneous Information (Magnesium Replacement Protocol 1 Each Misc) 1 each MISCELLANE DAILY PRN; Protocol PRN Reason: Per Protocol Montelukast Sodium (Montelukast 10 Mg Tab) 10 mg PO HS [facility] Last Admin: 11/25/20 21:04 Dose: 10 mg Documented by: Naloxone HCl (Naloxone 0.4 Mg/Ml 1 Ml Vial) 0.2 mg IV Q2M PRN PRN Reason: Opioid Reversal Nicotine (Nicotine 14mg/24hr Patch) 1 patch TRANSDERM DAILY [facility] Last Admin: 11/25/20 08:45 Dose: Not Given Documented by: Ondansetron HCl (Ondansetron 4 Mg/2 Ml Vial) 4 mg IVP Q8HR PRN PRN Reason: Nausea And Vomiting Pantoprazole Sodium (Pantoprazole 40 Mg Tablet) 40 mg PO AC-BRKFST [facility] Last Admin: 11/25/20 06:20 Dose: 40 mg Documented by: Pentoxifylline (Pentoxifylline 400 Mg Tablet.Er) 400 mg PO TID-W/MEALS [facility] Last Admin: 11/25/20 17:19 Dose: 400 mg Documented by: Pregabalin (Pregabalin 75 Mg Cap) 150 mg PO TID [facility] Last Admin: 11/25/20 21:04 Dose: 150 mg Documented by: Propranolol HCl (Propranolol 40 Mg Tab) 40 mg PO TID [facility] Last Admin: 11/25/20 21:04 Dose: 40 mg Documented by: Quetiapine Fumarate (Quetiapine 25 Mg Tab) 75 mg PO BID [facility] Last Admin: 11/25/20 21:04 Dose: 75 mg Documented by: Senna/Docusate Sodium (Sennosides-Docusate Sodium 1 Each Tab) 2 each PO BID [facility] Last Admin: 11/25/20 21:05 Dose: Not Given Documented by: Tramadol HCl (Tramadol 50 Mg Tab) 50 mg PO Q6H PRN PRN Reason: Pain Last Admin: 11/25/20 19:45 Dose: 50 mg Documented by: Objective - Vital Signs Vital signs: Vital Signs Temp 98.2 F 11/25/20 08:20 Pulse 69 11/25/20 09:53 Resp 18 11/25/20 08:20 BP 114/71 11/25/20 09:53 Pulse Ox 93 L 11/25/20 08:20 Intake & Output 11/24/20 11/25/20 11/25/20 18:59 06:59 18:59 Intake Total 2530 690 Balance 2530 690 Intake: Intake, IV Titration 750 690 Amount Ampicillin-Sulbactam 3 gm 100 200 In Sodium Chloride 0.9% 100 ml @ 200 mls/hr IVPB Q6HR [facility] Rx#:[id number] Magnesium Sulfate-D5w Pmx 200 1 gm In Dextrose/Water 1 100ml.bag @ 100 mls/hr IVPB Q1H [facility] Rx#: [id number] Sodium Chloride 0.9% 1, 200 240 000 ml @ 20 mls/hr IV . Q24H [facility] Rx#:[id number] Vancomycin 1,500 mg In 250 250 Sodium Chloride 0.9% 250 ml @ 125 mls/hr IVPB 0600 ,1800 [facility] Rx#:[id number] Oral 1780 Other: # Voids 2 3 1 # Bowel Movements 1 - Exam General: well nourished, well developed, NAD HENT: normocephalic, mucus membranes moist Neck: supple, no JVD Chest : Left breast - wound vac with minimal discharge in place Lungs: normal respiratory effort, no wheezes or rales CV: Regular rate and rhythm, no murmur. Peripheral pulses 2+ Abdomen: soft, nondistended, BS normal Lymph: no cervical or axillary LAD Neuro: A&Ox3, normal mood and affect - Labs CBC & Chem 7: 11/24/20 05:58 11/25/20 03:40 Labs: Abnormal Lab Results - Last 24 Hours (Table) 11/24/20 11/24/20 11/24/20 Range/Units 12:29 17:42 20:56 Chloride (98-107) mmol/L BUN (7-17) mg/dL Glucose (74-99) mg/dL POC Glucose (mg/dL) 115 H 123 H 100 H (75-99) mg/dL Total Protein (6.3-8.2) g/dL Albumin (3.5-5.0) g/dL 11/25/20 11/25/20 Range/Units 03:40 06:17 Chloride 109 H (98-107) mmol/L BUN 4 L (7-17) mg/dL Glucose 148 H (74-99) mg/dL POC Glucose (mg/dL) 102 H (75-99) mg/dL Total Protein 5.5 L (6.3-8.2) g/dL Albumin 3.3 L (3.5-5.0) g/dL Microbiology - Last 24 Hours (Table) 11/21/20 16:25 Anaerobic Culture - Final Breast - Left Anaerobic Gm Negative Bacilli 11/22/20 17:52 Blood Culture - Preliminary Blood No Growth after 48 hours 11/22/20 17:52 Blood Culture - Preliminary Blood No Growth after 48 hours 11/20/20 17:35 Blood Culture - Preliminary Blood No Growth after 96 hours 11/20/20 17:35 Blood Culture - Preliminary Blood No Growth after 96 hours Assessment and Plan Assessment: ASSESSMENT Recurrent Abscess of left breast with cellulitis status post I&D with biopsy, culture reporting enterococcus Group D. Wound VAC present Bilateral atelectasis, possible pneumonia Diabetes mellitus type 2 Hypertension Bipolar disorder Anxiety Fibromyalgia Nicotine dependence PLAN patient to be continued on antibiotics in the form of Unasyn and vancomycin. ornamental iron worker helper to be consulted to arrange home health care, as the patient wants to go home and she needs IV antibiotics. Continue with the rest of her current medication regimen. Further recommendations to follow depending on the progress of the patient.
--- NOTE | 2020-11-26 00:19 | PN ---
PROGRESS NOTE DATE OF SERVICE: 11/25/2020. REASON FOR FOLLOWUP: Left breast abscess. INTERVAL HISTORY: Patient is afebrile. The patient is breathing comfortably. The patient denies having any chest pain. No shortness of breath or cough. No nausea, vomiting, abdominal pain or diarrhea. Pain to the left breast is currently controlled. PHYSICAL EXAMINATION: Blood pressure 154/87, pulse of 89, temperature 98.7. She is 93% on room air. General description is a middle-aged female up in the bed in no distress. Respiratory system: Unlabored breathing clear to auscultation. HEART: S1, S2. Regular rate. ABDOMEN: Soft, no tenderness. LABS: BUN of 4, creatinine 0.56. Cultures still not finalized. DIAGNOSTIC IMPRESSION AND PLAN: Patient with left breast abscess status post drainage of this abscess. Culture with Enterococcus was sensitive pending anaerobes. Patient is covered with vancomycin and Unasyn. Discharge medications depend upon the culture report. Local care to continue with wound VAC to continue and monitor clinical course closely. MMODL / IJN: [id number] /
[2020-11-26] MEDS: AMPICILLIN-SULBACTAM 3 GM in SODIUM CHLORIDE 0.9% 100 ML IVPB SCH ×3 (06:01→17:34)
[2020-11-26 06:33] LABS: Glucose,Whole Blood 110 mg/dL (75-99)
[2020-11-26] MEDS: INSULIN ASPART (NovoLOG) 100 UNIT/ML VIAL SQ SCH ×4 (06:36→21:38)
[2020-11-26] MEDS: PANTOPRAZOLE 40 MG TABLET PO SCH (06:36)
[2020-11-26] MEDS: metFORMIN 500 MG TAB PO SCH ×2 (06:36→17:35)
[2020-11-26] MEDS: VANCOMYCIN 1,500 MG in SODIUM CHLORIDE 0.9% 250 ML IVPB SCH ×2 (06:36→18:10)
[2020-11-26] MEDS: PENTOXIFYLLINE 400 MG TABLET.ER PO SCH ×3 (06:39→17:37)
[2020-11-26] MEDS: NICOTINE 14MG/24HR PATCH TRANSDERM SCH (08:14)
[2020-11-26] MEDS: FLUoxetine HCL 20 MG CAP PO SCH (08:18)
[2020-11-26] MEDS: DULoxetine HCL 30 MG CAPSULE.DR PO SCH (08:18)
[2020-11-26] MEDS: LINAGLIPTIN 5 MG TABLET PO SCH (08:18)
[2020-11-26] MEDS: PREGABALIN 75 MG CAP PO SCH ×3 (08:18→21:37)
[2020-11-26] MEDS: PROPRANOLOL 40 MG TAB PO SCH ×3 (08:19→21:37)
[2020-11-26] MEDS: QUEtiapine 25 MG TAB PO SCH ×2 (08:19→21:37)
[2020-11-26] MEDS: SENNOSIDES-DOCUSATE SODIUM 1 EACH TAB PO SCH ×2 (08:20→21:40)
[2020-11-26] MEDS: SODIUM CHLORIDE 0.9% 1,000 ML IV SCH (08:21)
[2020-11-26] MEDS: BENZOCAINE SPRAY 1 CAN TOPICAL SCH (08:22)
[2020-11-26] MEDS: ACETAMINOPHEN TAB 325 MG TAB PO PRN (08:30)
[2020-11-26 12:41] LABS: Glucose,Whole Blood 112 mg/dL (75-99)
--- NOTE | 2020-11-26 17:30 | P.PN ---
Subjective Progress Note Date: 11/26/20 Principal diagnosis: Left Breast Abscess Ms. Manjula Harris is a 50 yo F with hx recurrent cellulitis and abscess of the L breast, T2DM, bipolar disorder, fibromyalgia who presented to the ED complaining of worsening pain and swelling of her L breast over the past few days. She denies any drainage but has been having pain and chills as well as reduced appetite. She last had an infection of the breast around 2014. On presentation vitals stable, afebrile, WBC 19k, COVID negative. Breast US with subareolar fluid collection.Later she underwent I&D of left breast abscess with biopsy. Tolerated procedure well. Maintained on IV antibioticsand has a wound VAC in place. Chest x-ray reporting atelectasis, possible bilateral pneumonia upper lung bases, more in the left side. Evaluated by infectious disease, antibiotics adjusted, currently on Unasyn and vancomycin. On 11/25/2020-patient was seen and examined at bedside. Patient was supposed to be discharged to rehab facility yesterday, but she decided that she would want to go home with home health care so the discharge was held yesterday. Patient is comfortably lying in bed appears to be no acute distress. She states she still has some left breast pain but better. She denies having any chest pain or palpitations. No cough or difficulty breathing. No abdominal pain nausea vomiting or diarrhea. On reviewing the vitals temperature of 98.2, heart rate 78, respiratory 18, blood pressure 160 x 100, saturating at 93% on room air on reviewing the labs sodium 143, potassium 4, chloride 109, bicarb 26, BUN 4, creatinine 0.56 albumin 3.3 On 11/26/2020 - patient is comfortably lying in bed appears to be no acute distress. No acute events reported by nursing staff. Patient continues to be on IV antibiotics at her left breast abscess. Patient denies having any chest pain or palpitations. The pain in her left breast seems to be improving. She denies having any fevers chills or rigors. No cough or difficulty in breathing. No abdominal pain nausea vomiting or diarrhea. On reviewing the vitals temperature maximum of 98.1, heart rate 64, respiratory rate 16, blood pressure 153/78, saturating at 96% on room air. No new labs from this morning. Patient's medications have been reviewed and she continues to be on antibiotics in the form of Unasyn and vancomycin Objective - Vital Signs Vital signs: Vital Signs Temp 98.1 F 11/26/20 08:00 Pulse 65 11/26/20 08:00 Resp 16 11/26/20 08:00 BP 153/78 11/26/20 08:00 Pulse Ox 96 11/26/20 08:00 Intake & Output 11/25/20 11/26/20 11/26/20 18:59 06:59 18:59 Intake Total 1620 Balance 1620 Intake: Oral 1620 Other: Voiding Method Toilet # Voids 3 1 2 # Bowel Movements 1 - Exam PHYSICAL EXAM General: well nourished, well developed, NAD HENT: normocephalic, mucus membranes moist Chest : Left breast - wound vac with minimal discharge in place Lungs: normal respiratory effort, no wheezes or rales CV: Regular rate and rhythm, no murmur. Peripheral pulses 2+ Abdomen: soft, nondistended, BS normal Neuro: A&Ox3, normal mood and affect - Labs CBC & Chem 7: 11/24/20 05:58 11/25/20 03:40 Labs: Abnormal Lab Results - Last 24 Hours (Table) 11/25/20 11/26/20 11/26/20 Range/Units 19:56 06:32 12:29 POC Glucose (mg/dL) 115 H 110 H 112 H (75-99) mg/dL Microbiology - Last 24 Hours (Table) 11/22/20 17:52 Blood Culture - Preliminary Blood No Growth after 72 hours 11/22/20 17:52 Blood Culture - Preliminary Blood No Growth after 72 hours 11/20/20 17:35 Blood Culture - Preliminary Blood No Growth after 120 hours 11/20/20 17:35 Blood Culture - Preliminary Blood No Growth after 120 hours Assessment and Plan Assessment: ASSESSMENT Recurrent Abscess of left breast with cellulitis status post I&D with biopsy, culture reporting enterococcus Group D. Wound VAC present Bilateral atelectasis, possible pneumonia Diabetes mellitus type 2 Hypertension Bipolar disorder Anxiety Fibromyalgia Nicotine dependence PLAN patient to be continued on antibiotics in the form of Unasyn and vancomycin, ID Dr. Mi on board. supervisor fur floor worker to be consulted to arrange home health care, as the patient wants to go home and she needs IV antibiotics. Continue with the rest of her current medication regimen. Further recommendations to follow depending on the progress of the patient.
[2020-11-26 17:41] LABS: Glucose,Whole Blood 116 mg/dL (75-99)
--- NOTE | 2020-11-26 19:27 | PN ---
PROGRESS NOTE DATE OF SERVICE: 11/26/2020 REASON FOR FOLLOWUP: The left breast abscess. INTERVAL HISTORY: Patient is afebrile. The patient is breathing comfortably. Patient denies having any chest pain. No shortness of breath or cough. Pain to the left breast is currently controlled. No diarrhea. PHYSICAL EXAMINATION: Her blood pressure is 133/80 with a pulse of 65, temperature 97.7. She is 95% on room air. General description: The patient is a middle-aged female lying in bed in no distress. Respiratory system: Unlabored breathing, clear to auscultation. HEART: S1, S2. Regular rate. ABDOMEN: Soft. No tenderness. LABS: No new labs have been obtained today. DIAGNOSTIC IMPRESSION AND PLAN: Patient with left breast abscess status post drainage, culture with anaerobes and Enterococcus. Unfortunately, the enterococcus has not been finalized, that is holding her discharge. We will wait for the final sensitivity to determine discharge antibiotic and that will also determine whether she will need a PICC line or midline. Local care with wound VAC. MMEMILL / IJN: [id number] /
[2020-11-26 21:29] LABS: Glucose,Whole Blood 99 mg/dL (75-99)
[2020-11-26] MEDS: MONTELUKAST 10 MG TAB PO SCH (21:37)
[2020-11-26] MEDS: traMADol 50 MG TAB PO PRN (21:37)
[2020-11-27] MEDS: AMPICILLIN-SULBACTAM 3 GM in SODIUM CHLORIDE 0.9% 100 ML IVPB SCH ×5 (00:02→23:02)
[2020-11-27] MEDS ORDERED: VANCOMYCIN TROUGH DUE 1 EACH MISC MISCELLANE ONE (05:00)
[2020-11-27 05:50] LABS: Basophils # (A) 0.1 k/uL (0-0.2); Basophils % (A) 1 %; Eosinophils # (A) 1.7 k/uL (0-0.7); Eosinophils % (A) 13 %; HCT 38.4 % (34.0-46.0); HGB 13.1 gm/dL (11.4-16.0); Lymphocytes # (A) 2.6 k/uL (1.0-4.8); Lymphocytes % (A) 20 %; MCH 31.5 pg (25.0-35.0); MCV 92.5 fL (80.0-100.0); Mean Platelet Volume 7.4; Monocytes # (A) 0.6 k/uL (0-1.0); Monocytes % (A) 4 %; Neutrophils # (A) 7.9 k/uL (1.3-7.7); Neutrophils % (A) 60 %; Platelet Count 276 k/uL (150-450); RBC 4.15 m/uL (3.80-5.40); RDW 13.9 % (11.5-15.5); WBC 13.1 k/uL (3.8-10.6)
[2020-11-27 06:20] LABS: African American GFR (CKD) >90 (>60 ml/min/1.73 sqM); Anion Gap 5 mmol/L; Blood Urea Nitrogen 4 mg/dL (7-17); C Reactive Protein 1.5 mg/dL (<1.0); Calcium 8.7 mg/dL (8.4-10.2); Carbon Dioxide 30 mmol/L (22-30); Chloride 107 mmol/L (98-107); Glucose 93 mg/dL (74-99); Non-African American GFR(CKD) >90 (>60 ml/min/1.73 sqM); Potassium 3.6 mmol/L (3.5-5.1); Sodium 142 mmol/L (137-145)
[2020-11-27 06:27] LABS: Glucose,Whole Blood 89 mg/dL (75-99)
[2020-11-27] MEDS: PANTOPRAZOLE 40 MG TABLET PO SCH (06:36)
[2020-11-27] MEDS: PENTOXIFYLLINE 400 MG TABLET.ER PO SCH ×3 (06:36→17:32)
[2020-11-27] MEDS: VANCOMYCIN 1,500 MG in SODIUM CHLORIDE 0.9% 250 ML IVPB SCH ×2 (06:37→18:25)
[2020-11-27] MEDS: INSULIN ASPART (NovoLOG) 100 UNIT/ML VIAL SQ SCH ×4 (06:37→21:02)
[2020-11-27] MEDS: metFORMIN 500 MG TAB PO SCH ×2 (06:37→17:32)
[2020-11-27] MEDS: SENNOSIDES-DOCUSATE SODIUM 1 EACH TAB PO SCH ×2 (09:09→21:02)
[2020-11-27] MEDS: LINAGLIPTIN 5 MG TABLET PO SCH (09:09)
[2020-11-27] MEDS: DULoxetine HCL 30 MG CAPSULE.DR PO SCH (09:10)
[2020-11-27] MEDS: FLUoxetine HCL 20 MG CAP PO SCH (09:10)
[2020-11-27] MEDS: PREGABALIN 75 MG CAP PO SCH ×3 (09:10→21:02)
[2020-11-27] MEDS: QUEtiapine 25 MG TAB PO SCH ×2 (09:10→21:02)
[2020-11-27] MEDS: PROPRANOLOL 40 MG TAB PO SCH ×3 (09:10→21:03)
[2020-11-27] MEDS: NICOTINE 14MG/24HR PATCH TRANSDERM SCH (09:11)
[2020-11-27] MEDS: SODIUM CHLORIDE 0.9% 1,000 ML IV SCH (12:00)
--- NOTE | 2020-11-27 12:08 | P.DS ---
Providers Date of admission: 11/22/20 21:15 Expected date of discharge: 11/27/20 Attending physician: William Mistry MD Consults: 11/20/20 20:02 Consult Physician Urgent Consulting Provider: Joellen Pierre Consult Reason/Comments: recurrent breast abscess Do you want consulting provider notified?: Already Contacted 11/21/20 17:05 Consult Physician Routine Consulting Provider: Jessica Mi Consult Reason/Comments: recurring left breast abcess Do you want consulting provider notified?: Yes Primary care physician: Lauryn Rey Hospital Course: Final Diagnoses; Recurrent Abscess of left breast with cellulitis status post I&D with biopsy, culture reporting anaerobic gram-negative bacilli, enterococcus Group D- final sensitivities pending. Wound VAC present Bilateral atelectasis, possible pneumonia Diabetes mellitus type 2 Hypertension Bipolar disorder Anxiety Fibromyalgia Nicotine dependence Hospital course:Manjula Harris is a 50 yo F with hx recurrent cellulitis and abscess of the L breast, T2DM, bipolar disorder, fibromyalgia who presented to the ED complaining of worsening pain and swelling of her L breast over the past few days. She denies any drainage but has been having pain and chills as well as reduced appetite. She last had an infection of the breast around 2014. On presentation vitals stable, afebrile, WBC 19k, COVID negative. Breast US with subareolar fluid collection. 11/22/2020 underwent I&D of left breast abscess with biopsy. Tolerated procedure well. Maintained on IV antibiotics. Reports pain improving. T-max 99.6, WBC 13.6. Maintaining O2 sats in the high 90s on 2 L nasal cannula. Ambulating, tolerating exertion well. Denies chest pain, palpitations or shortness of breath. 11/23/2020 postop day #2, wound VAC applied yesterday as per wound care team. Chest x-ray last night reporting atelectasis, possible bilateral pneumonia upper lung bases, more in the left side.Afebrile, T-max 102.4, WBC decreased to 12.6, cultures pending. Evaluated by infectious disease, antibiotics adjusted, currently on Unasyn and vancomycin. Renal function stable. Maintained O2 sats in the high 90s on 2 L nasal cannula. Blood sugars controlled. Tender, pain controlled. Significant clinical improvement. Pain controlled. Afebrile continue on antibiotics as per infectious disease. Cleared by surgery for discharge. Arian goldsmith will be discharged home in a stable condition with guarded prognosis pending final culture sensitivities/DC antibiotic recommendations, clearance per ID, wound care per wound care team. Microbiology 11/22/20 17:52 Blood Blood Culture - Preliminary No Growth after 96 hours 11/22/20 17:52 Blood Blood Culture - Preliminary No Growth after 96 hours 11/20/20 17:35 Blood Blood Culture - Final No Growth after 144 hours 11/20/20 17:35 Blood Blood Culture - Final No Growth after 144 hours 11/21/20 16:25 Breast - Left Anaerobic Culture - Final Anaerobic Gm Negative Bacilli 11/21/20 16:25 Breast - Left Gram Stain - Preliminary 11/21/20 16:25 Breast - Left Wound Culture - Preliminary Group D Enterococcus 11/21/20 16:25 Breast - Left Fungal Culture - Preliminary The impression and plan of care has been dictated as directed. : I performed a history and examination of this patient, discussed the same with the dictator. I agree with the dictator's note ,documented as a scribe. Any additional findings or plans will be noted. Patient Condition at Discharge: Stable Plan - Discharge Summary New Discharge Prescriptions: New Acetaminophen Tab [Tylenol] 650 mg PO Q6HR PRN tab PRN Reason: Mild Pain Or Fever > 100.5 INSULIN LISPRO (HumaLOG) [humaLOG] 0 unit SQ ACHS #1 vial Nicotine 14Mg/24Hr Patch [Habitrol] 1 patch TRANSDERM DAILY patch Sennosides-Docusate Sodium [Senokot-S] 2 each PO BID tab traMADol HCl [Ultram] 50 mg PO Q6H PRN tab PRN Reason: Pain Pantoprazole Sodium [Protonix] 40 mg PO DAILY #30 tablet.dr Continue Montelukast [Singulair] 10 mg PO HS Propranolol [Inderal] 40 mg PO TID Aspirin 81 mg PO DAILY tiZANidine [Zanaflex] 4 mg PO BID PRN PRN Reason: Pain Ascorbic Acid [Vitamin C] 500 mg PO BID Cetirizine HCl [Zyrtec] 10 mg PO DAILY Betamethasone Dipropionate [Diprolene AF 0.05% Cream] 1 applic TOPICAL DAILY PRN PRN Reason: TOE/BREAST Atorvastatin [Lipitor] 40 mg PO DAILY sitaGLIPtin PHOS/metFORMIN HCL [[place] 50-1,000 mg Tablet] 1 tab PO BID Tysabri Infusion 1 dose IV QMONTHLY Umeclidinium [place] [Incruse Ellipta] 1 puff INHALATION RT-DAILY Pentoxifylline 400 mg PO TID Meloxicam 7.5 mg PO DAILY PRN PRN Reason: Pain QUEtiapine FUMARATE [SEROquel XR] 150 mg PO HS FLUoxetine HCL [PROzac] 20 mg PO DAILY Cholecalciferol [Vitamin D3 (25 Mcg = 1000 Iu)] 50 mcg PO DAILY DULoxetine HCL [Cymbalta] 30 mg PO DAILY amLODIPine [Norvasc] 10 mg PO DAILY glipiZIDE XL [Glucotrol XL] 10 mg PO BID Pregabalin [Lyrica] 150 mg PO TID #9 cap Discontinued Clotrimazole Cream [Lotrimin Cream] 1 applic TOPICAL DAILY Discharge Medication List Montelukast [Singulair] 10 mg PO HS 08/26/16 [History] Aspirin 81 mg PO DAILY 06/24/18 [History] Propranolol [Inderal] 40 mg PO TID 06/24/18 [History] Ascorbic Acid [Vitamin C] 500 mg PO BID 07/02/18 [History] tiZANidine [Zanaflex] 4 mg PO BID PRN 07/02/18 [History] Atorvastatin [Lipitor] 40 mg PO DAILY 05/27/19 [History] Betamethasone Dipropionate [Diprolene AF 0.05% Cream] 1 applic TOPICAL DAILY PRN 05/27/19 [History] Cetirizine HCl [Zyrtec] 10 mg PO DAILY 05/27/19 [History] Cholecalciferol [Vitamin D3 (25 Mcg = 1000 Iu)] 50 mcg PO DAILY 11/20/20 [History] DULoxetine HCL [Cymbalta] 30 mg PO DAILY 11/20/20 [History] FLUoxetine HCL [PROzac] 20 mg PO DAILY 11/20/20 [History] Meloxicam 7.5 mg PO DAILY PRN 11/20/20 [History] Pentoxifylline 400 mg PO TID 11/20/20 [History] QUEtiapine FUMARATE [SEROquel XR] 150 mg PO HS 11/20/20 [History] Tysabri Infusion 1 dose IV QMONTHLY 11/20/20 [History] Umeclidinium [place] [Incruse Ellipta] 1 puff INHALATION RT-DAILY 11/20/20 [History] amLODIPine [Norvasc] 10 mg PO DAILY 11/20/20 [History] glipiZIDE XL [Glucotrol XL] 10 mg PO BID 11/20/20 [History] sitaGLIPtin PHOS/metFORMIN HCL [[place] 50-1,000 mg Tablet] 1 tab PO BID 11/20/20 [History] Acetaminophen Tab [Tylenol] 650 mg PO Q6HR PRN tab 11/24/20 [Rx] INSULIN LISPRO (HumaLOG) [humaLOG] 0 unit SQ ACHS #1 vial 11/24/20 [Rx] Nicotine 14Mg/24Hr Patch [Habitrol] 1 patch TRANSDERM DAILY patch 11/24/20 [Rx] Pantoprazole Sodium [Protonix] 40 mg PO DAILY #30 tablet. 11/24/20 [Rx] Pregabalin [Lyrica] 150 mg PO TID #9 cap 11/24/20 [Rx] Sennosides-Docusate Sodium [Senokot-S] 2 each PO BID tab 11/24/20 [Rx] traMADol HCl [Ultram] 50 mg PO Q6H PRN tab 11/24/20 [Rx] Follow up Appointment(s)/Referral(s): William Mistry MD [STAFF PHYSICIAN] - 1 Week Joellen Pierre MD [STAFF PHYSICIAN] - 1 Week [facility] Visiting Nurse, [NON-STAFF] - Activity/Diet/Wound Care/Special Instructions: Resume Provigil & Dalfampridine( home meds). COnfirm Surgery/wound care F/U prior to dc. Antibx as per ID.WOund care as per wound care team/surgery.
[2020-11-27 12:53] LABS: Glucose,Whole Blood 91 mg/dL (75-99)
[2020-11-27 13:37] VITALS: BMI 30.6
[2020-11-27 17:32] LABS: Glucose,Whole Blood 95 mg/dL (75-99)
--- NOTE | 2020-11-27 19:58 | PN ---
PROGRESS NOTE DATE OF SERVICE: 11/27/2020 REASON FOR FOLLOWUP VISIT: Left breast abscess and cellulitis. INTERVAL HISTORY: Patient is afebrile. The patient is breathing comfortably. Pain to the left breast is currently controlled. No chest pain, shortness of breath, or cough. No abdominal pain or diarrhea. PHYSICAL EXAMINATION: Blood pressure 162/89, pulse of 73, temperature 98.3. She is 93% on room air. General description is a middle-aged female up in the bed in no distress. Respiratory system: Unlabored breathing. Clear to auscultation anteriorly. Heart S1, S2. Regular rate and rhythm. Abdomen soft, no tenderness. Left breast wound currently covered with a wound VAC. LABS: Hemoglobin is 13.1, white count 13.1. BUN of 4, creatinine 0.63. Cultures still pending. DIAGNOSTIC IMPRESSION AND PLAN: Patient with left breast abscess status post drainage. Culture with Enterococcus, still waiting for sensitivity on the enterococcus. The patient is covered with Unasyn and vanco. Discharge antibiotic on the basis of the culture. Local wound care with wound VAC. MMODL / IJN: [id number] /
[2020-11-27 20:56] LABS: Glucose,Whole Blood 99 mg/dL (75-99)
[2020-11-27] MEDS: MONTELUKAST 10 MG TAB PO SCH (21:02)
[2020-11-27] MEDS: BENZOCAINE SPRAY 1 CAN TOPICAL SCH (21:49)
[2020-11-28] MEDS: AMPICILLIN-SULBACTAM 3 GM in SODIUM CHLORIDE 0.9% 100 ML IVPB SCH ×2 (05:22→12:01)
[2020-11-28] MEDS: HYDROmorphone 0.5 MG/0.5 ML SYRINGE IVP PRN (05:38)
[2020-11-28 06:35] LABS: Glucose,Whole Blood 118 mg/dL (75-99)
[2020-11-28] MEDS: PANTOPRAZOLE 40 MG TABLET PO SCH (06:35)
[2020-11-28] MEDS: metFORMIN 500 MG TAB PO SCH (06:35)
[2020-11-28] MEDS: VANCOMYCIN 1,500 MG in SODIUM CHLORIDE 0.9% 250 ML IVPB SCH (06:35)
[2020-11-28] MEDS: INSULIN ASPART (NovoLOG) 100 UNIT/ML VIAL SQ SCH ×2 (06:35→12:03)
[2020-11-28] MEDS: PENTOXIFYLLINE 400 MG TABLET.ER PO SCH ×2 (06:35→12:01)
[2020-11-28] MEDS: QUEtiapine 25 MG TAB PO SCH (08:38)
[2020-11-28] MEDS: PROPRANOLOL 40 MG TAB PO SCH ×2 (08:38→15:51)
[2020-11-28] MEDS: PREGABALIN 75 MG CAP PO SCH ×2 (08:38→15:51)
[2020-11-28] MEDS: SENNOSIDES-DOCUSATE SODIUM 1 EACH TAB PO SCH (08:39)
[2020-11-28] MEDS: FLUoxetine HCL 20 MG CAP PO SCH (08:39)
[2020-11-28] MEDS: SODIUM CHLORIDE 0.9% 1,000 ML IV SCH (08:40)
[2020-11-28] MEDS: NICOTINE 14MG/24HR PATCH TRANSDERM SCH (08:40)
[2020-11-28] MEDS: LINAGLIPTIN 5 MG TABLET PO SCH (08:40)
[2020-11-28] MEDS: DULoxetine HCL 30 MG CAPSULE.DR PO SCH (08:40)
[2020-11-28] MEDS: BENZOCAINE SPRAY 1 CAN TOPICAL SCH (08:45)
[2020-11-28 09:22] VITALS: PULSE 71
[2020-11-28 12:04] LABS: Glucose,Whole Blood 106 mg/dL (75-99)
[2020-11-28] MEDS ORDERED: LIDOCAINE 1% INJ 10MG/ML (20 ML MDV) SQ ONE (13:22)
--- NOTE | 2020-11-28 13:45 | P.PN ---
Progress Note - Text Progress Note Date: 11/28/20 REASON FOR FOLLOWUP VISIT: Left breast abscess and cellulitis. INTERVAL HISTORY: Patient remains to be afebrile. The patient is breathing comfortably. The patient pain to the left breast is currently controlled. The patient denies chest pain, shortness of breath, or cough. No abdominal pain or diarrhea. PHYSICAL EXAMINATION: Blood pressure 160/80, pulse of 70, temperature 98.3. She is 93% on room air. General description is a middle-aged female up in the bed in no distress. Respiratory system: Unlabored breathing. Clear to auscultation anteriorly. Heart S1, S2. Regular rate and rhythm. Abdomen soft, no tenderness. Left breast wound currently covered with a wound VAC. LABS: Enterococcus could not be further identified and no sensitivities per micro-lab DIAGNOSTIC IMPRESSION AND PLAN: Patient with left breast abscess status post drainage. Culture with Enterococcus, and anaerobes In view of the fact we do not have sensitivities on the enterococcus we will go ahead and get a PICC line And plan for 2 weeks of IV vancomycin pharmacy to dose along with oral Flagyl local wound care with a wound VAC and follow-up With me in the wound care center next week
--- NOTE | 2020-11-28 14:52 | IR ---
PICC LINE PLACEMENT: HISTORY: Infection requiring long-term antibiotic therapy PROCEDURE: Ultrasound and fluoroscopic guidance of PICC line placement. COMPLICATIONS: None ANESTHESIA: 1. 1% Lidocaine locally. FINDINGS/TECHNIQUE: The procedure was explained to the patient. The risks, complications, benefits and alternatives were discussed and any questions were answered. Informed consent was obtained. The patient was placed supine on the fluoroscopic table and prepped and draped in the usual sterile fas ion. Utilizing a 21 gauge needle and sonographic and fluoroscopic guidance, access in the right cep halic vein was achieved and there is placement of a 0.018 guidewire. The vein is patent. A 4-F she ath was placed over the guidewire. The guidewire and dilator were removed and a 4-F. PICC line was p laced through the sheath with the tip at the level of the SVC. The sheath was removed, the catheter was flushed and sutured into position. The patient was stable throughout the procedure and remained stable upon discharge from the Department of Radiology. The vein puncture was patent under ultrasound. A mosher scale image was obtained to document patency of the vein punctured. All elements of the maximal barrier technique were utilized. FLUOROSCOPY TIME: 0.1 minute and one image submitted IMPRESSION: Successful PICC line placement under ultrasound and fluoroscopic guidance.
[2020-11-28 14:59] VITALS: BP 150/90; RESP 16; TEMP 98.4
[2020-11-28] MEDS ORDERED: DAPTOmycin 500 MG in SODIUM CHLORIDE 0.9% 50 ML IVPB SCH (15:30)
== END 2020-11-28 17:09 | disposition home health service (06) | DRG 584 ==
LOC: EC 15:00 → 6PED 20:01 → OBSVTOIN 11-22 21:15
PROVIDERS: ADMIT Family Medicine; ATTEND Family Medicine
PROC: 0HBU0ZX Excision of Left Breast, Open Approach, Diagnostic (ICD-10-PCS; 2020-11-21)
PROC: 0H9U0ZZ Drainage of Left Breast, Open Approach (ICD-10-PCS; principal; 2020-11-21 16:10)
PROC: 02HV33Z Insertion of Infusion Device into Superior Vena Cava, Percutaneous Approach (ICD-10-PCS; 2020-11-28)
PROC: B5181ZA Fluoroscopy of Superior Vena Cava using Low Osmolar Contrast, Guidance (ICD-10-PCS; 2020-11-28)
DX: N61.1 Abscess of the breast and nipple (principal); J18.9 Pneumonia, unspecified organism; L98.495 Non-pressure chronic ulcer of skin of other sites with muscle involvement without evidence of necrosis; L03.90 Cellulitis, unspecified; Z79.82 Long term (current) use of aspirin; Z79.1 Long term (current) use of non-steroidal anti-inflammatories (NSAID); Z79.84 Long term (current) use of oral hypoglycemic drugs; F17.210 Nicotine dependence, cigarettes, uncomplicated; Z82.49 Family history of ischemic heart disease and other diseases of the circulatory system; Z20.822 Contact with and (suspected) exposure to COVID-19; G35 Multiple sclerosis; E11.622 Type 2 diabetes mellitus with other skin ulcer; Z80.3 Family history of malignant neoplasm of breast; F31.9 Bipolar disorder, unspecified; M79.7 Fibromyalgia; I10 Essential (primary) hypertension; G89.4 Chronic pain syndrome; F41.9 Anxiety disorder, unspecified; D72.829 Elevated white blood cell count, unspecified; B95.2 Enterococcus as the cause of diseases classified elsewhere; Z87.442 Personal history of urinary calculi; Z79.2 Long term (current) use of antibiotics
CPT/HCPCS: 36415; 36573; 71045; 80048; 80053; 80202; 81025; 83036; 83605; 83735; 84132; 85025; 86140; 87040; 87070; 87075; 87102; 87116; 87205; 87206; 87635; 88304; 94760; 96365; 99285

== ENCOUNTER → 2021-02-09 | Outpatient (CLI) | payer OTHER ==
[2021-02-09 14:38] VITALS: BP 144/85; PULSE 74; RESP 18; TEMP 98.9
--- NOTE | 2021-02-09 15:31 | P.PN ---
Subjective Progress Note Date: 02/09/21 Principal diagnosis: Postop I&D abscess left breast Manjula is a 50-year-old white female status post I&D of an abscess in her left breast on 6720. Postprocedure she is an well and has no complaints at this time. She has no new lumps masses or nodules of concern in either breast. She is not complaining of any fever or chills. She has had left breast abscess drainage on multiple occasions. Past surgical history: I&D left breast abscess 5 2. Brain surgery cyst 3. foot surgery 4. D&C 5. Hand surgery Medical history: 1. MS 2. Diabetes 3. DJD Family history: 2 maternal aunts with breast cancer History: Menarche: 12 1 and 2, breast fed ES, age of first 33 Menopause: Patient still having menstrual periods less. One month ago With control pills: Negative Lungs: Negative Social history: Smoke 1 pack per day for 30 years Alcohol: Rare Drugs: Negative - Constitutional Constitutional: Reports as per HPI - EENT Eyes: bilateral as per HPI - Breasts Breasts: bilateral: as per HPI - Cardiovascular Cardiovascular: Denies chest pain, Denies shortness of breath - Respiratory Comment: smoker - Gastrointestinal Gastrointestinal: Reports diarrhea - Genitourinary (Female) Genitourinary: Reports kidney stones - Menstruation Menstruation: Reports premenarcheal - Musculoskeletal Comment: Degenerative disc disease - Integumentary Comment: erythema and swelling around the left nipple areolar region - Neurological Neurological: Denies numbness, Denies weakness - Endocrine Comment: diabetes - Allergic/Immunologic Allergic/Immunologic: Reports as per HPI Past Medical History Past Medical History: Diabetes Mellitus, Hypertension, Musculoskeletal Disorder, Neurologic Disorder Additional Past Medical History / Comment(s): RECURRANT CELLUTITS/ABSCESS LEFT BREAST; KIDNEY STONES,multiple sclerosis, RT HIP IMPINGEMENT SYNDROME,CHRONIC PAIN SYNDROME, MIGRAINES, History of Any Multi-Drug Resistant Organisms: None Reported Past Surgical History: Breast Surgery, Orthopedic Surgery Additional Past Surgical History / Comment(s): 1990 BENIGN CYST DRAINED FROM BRAIN, D&C X2, LEFT HAND TENDON REPAIR,ATHROSCOPIC SURG RT HIP/BUNIONECTOMY, drainage of abscess left breast x 4. Past Anesthesia/Blood Transfusion Reactions: No Reported Reaction Past Psychological History: Anxiety Smoking Status: Current every day smoker Past Alcohol Use History: Rare Additional Past Alcohol Use History / Comment(s): She denies medical marijuana, marijuana or street drug use. She drinks alcohol on a rare bases. Past Drug Use History: None Reported Objective - Vital Signs Vital signs: Vital Signs Temp 98.9 F 02/09/21 14:34 Pulse 74 02/09/21 14:34 Resp 18 02/09/21 14:34 BP 144/85 02/09/21 14:34 Pulse Ox 99 02/09/21 14:34 Intake & Output 02/08/21 02/09/21 02/09/21 18:59 06:59 18:59 Weight 95.254 kg - Exam BMI 31.9 - Constitutional General appearance: Present: cooperative - EENT Eyes: Present: EOMI ENT: Present: hearing grossly normal - Neck Neck: Present: normal ROM - Respiratory Respiratory: bilateral: CTA - Cardiovascular Rhythm: regular Heart sounds: normal: S1, S2 - Gastrointestinal General gastrointestinal: Present: soft - Integumentary Integumentary: Present: normal turgor - Musculoskeletal Musculoskeletal: Present: gait normal - Psychiatric Psychiatric: Present: A&O x's 3, appropriate affect, intact judgment & insight - Additional findings Additional findings: Breast examination: Broad: 42 DD Inspection: Right breast larger than left breast bilateral grade 3 ptosis Palpation: Right breast: Multi-positional exam fibrocystic changes no dominant mass or nodule is of concern Right axilla: No adenopathy of concern Left breast: Postoperative changes, no dominant masses or nodules of concern Left axilla: No adenopathy of concern Assessment and Plan Assessment: Impression: 1. MS 2. Diabetes 3. DJD 4. Recurrent abscesses left breast 5. Nicotine dependence Plan: 1. Patient at this time does not have any abscesses in her breast or infection which would warrant drainage 2. Patient is due for bilateral mammogram 3. I strongly recommended that the patient stop smoking Cc: Dr. Mistry
== END ==
LOC: WWCBREAST 14:14
PROVIDERS: ATTEND Surgery
DX: N61.1 Abscess of the breast and nipple (principal); G35 Multiple sclerosis; I10 Essential (primary) hypertension; E11.9 Type 2 diabetes mellitus without complications; F41.9 Anxiety disorder, unspecified; M19.90 Unspecified osteoarthritis, unspecified site; F17.210 Nicotine dependence, cigarettes, uncomplicated; G89.4 Chronic pain syndrome; Z88.5 Allergy status to narcotic agent; Z88.1 Allergy status to other antibiotic agents; Z91.048 Other nonmedicinal substance allergy status

== ENCOUNTER → 2021-02-12 | Outpatient (CLI) | payer OTHER ==
--- NOTE | 2021-02-12 08:57 | MM ---
Reason for exam: additional evaluation requested from prior study. Last mammogram was performed 4 years and 7 months ago. History: Patient had first child at age 33. Family history of breast cancer in maternal aunt at age 70. Benign excisional biopsy of the left breast. Took hormonal contraceptives for 1 year beginning at age 17. Physical Findings: Nurse did not find any significant physical abnormalities on exam. MG Diagnostic Mammo w CAD [facility]IA Bilateral CC, MLO, and XCCL view(s) were taken. Prior study comparison: July 19, 2016, bilateral MG screening mammo w CAD. April 10, 2015, bilateral MG 3d diag mammo w/cad [facility]IA. The breast tissue is heterogeneously dense. This may lower the sensitivity of mammography. Stable benign calcifications. There is no discrete abnormality. No significant new findings when compared with previous films. These results were verbally communicated with the patient and result sheet given to the patient on 02/12/21. ASSESSMENT: Benign, BI-RAD 2 RECOMMENDATION: Routine screening mammogram of both breasts in 1 year.
== END | disposition home or self-care (01) ==
LOC: RADMAMWWP 07:41
PROVIDERS: ATTEND Surgery
DX: R92.1 Mammographic calcification found on diagnostic imaging of breast (principal); Z80.3 Family history of malignant neoplasm of breast; Z79.3 Long term (current) use of hormonal contraceptives
CPT/HCPCS: 77066

== ENCOUNTER → 2021-02-16 | Outpatient (CLI) | payer OTHER ==
[2021-02-16 13:48] VITALS: BP 129/83; PULSE 78; RESP 16; TEMP 98.8
--- NOTE | 2021-02-16 14:20 | P.PN ---
Subjective Progress Note Date: 02/16/21 Postop I&D abscess left breast Manjula is a 50-year-old white female status post I&D of an abscess in her left breast on 6720. Postprocedure she is an well and has no complaints at this time. She has no new lumps masses or nodules of concern in either breast. She is not complaining of any fever or chills. She has had left breast abscess drainage on multiple occasions[place] [address]. This was benign BIRADS 2. Past surgical history: I&D left breast abscess 5 2. Brain surgery cyst 3. foot surgery 4. D&C 5. Hand surgery Medical history: 1. MS 2. Diabetes 3. DJD Family history: 2 maternal aunts with breast cancer History: Menarche: 12 1 and 2, breast fed ES, age of first 33 Menopause: Patient still having menstrual periods less. One month ago With control pills: Negative Lungs: Negative Social history: Smoke 1 pack per day for 30 years Alcohol: Rare Drugs: Negative - Constitutional Constitutional: Reports as per HPI - EENT Eyes: bilateral as per HPI - Breasts Breasts: bilateral: as per HPI - Cardiovascular Cardiovascular: Denies chest pain, Denies shortness of breath - Respiratory Comment: smoker - Gastrointestinal Gastrointestinal: Reports diarrhea - Genitourinary (Female) Genitourinary: Reports kidney stones - Menstruation Menstruation: Reports premenarcheal - Musculoskeletal Comment: Degenerative disc disease - Integumentary Comment: erythema and swelling around the left nipple areolar region - Neurological Neurological: Denies numbness, Denies weakness - Endocrine Comment: diabetes - Allergic/Immunologic Allergic/Immunologic: Reports as per HPI Physical examination was not performed today as she had a breast examination performed on 820 721 which did not reveal any specific lesions of concern in either breast. Impression: 1. MS 2. Diabetes 3. DJD 4. Recurrent abscesses left breast 5. Nicotine dependence 6. Recent bilateral mammogram benign BIRADS 2 Plan: 1. Repeat bilateral mammogram in 1 year with physician exam at that time 2. Again I strongly recommended the patient stopped smoking CC: Dr. Mistry Objective - Vital Signs Vital signs: Vital Signs Temp 98.8 F 02/16/21 13:39 Pulse 78 02/16/21 13:39 Resp 16 02/16/21 13:39 BP 129/83 09/03/21 13:39 Pulse Ox 99 02/16/21 13:39 Intake & Output 02/15/21 02/16/21 02/16/21 18:59 06:59 18:59 Weight 95.708 kg
== END ==
LOC: WWCWWP 13:24
PROVIDERS: ATTEND Surgery
DX: N61.1 Abscess of the breast and nipple (principal); G35 Multiple sclerosis; E11.9 Type 2 diabetes mellitus without complications; M19.90 Unspecified osteoarthritis, unspecified site; F17.210 Nicotine dependence, cigarettes, uncomplicated; Z88.5 Allergy status to narcotic agent; Z91.048 Other nonmedicinal substance allergy status; Z88.1 Allergy status to other antibiotic agents

== ENCOUNTER → 2021-10-02 | Outpatient (CLI) | payer MEDICARE, OTHER ==
[2021-10-02 19:20] LABS: HCT 45.5 % (37.2-46.3); HGB 14.1 g/dL (12.0-15.0); MCV 93.4 fL (80.0-97.0); Mean Platelet Volume 10.2 fL (9.5-12.2); NRBC Per 100 WBC 0.2 /100 WBCS (0.0-0.0); Platelet Count 334 X 10*3/uL (140-440); RBC 4.87 X 10*6/uL (4.10-5.20); RDW 14.7 % (11.5-14.5); WBC 17.91 X 10*3/uL (4.50-10.00)
[2021-10-02 19:53] LABS: African American GFR (CKD) 98.2 (60.0-200.0); Albumin 4.9 g/dL (3.8-4.9); Albumin/Globulin Ratio 2.23 (1.60-3.17); BUN/Creat Ratio 12.25 Ratio (12.00-20.00); Blood Urea Nitrogen 9.8 mg/dL (9.0-27.0); Calcium 9.5 mg/dL (8.7-10.3); Globulin 2.2 g/dL (1.6-3.3); Non-African American GFR(CKD) 84.8 (60.0-200.0); Potassium 4.6 mmol/L (3.5-5.5); Total Bilirubin 0.3 mg/dL (0.30-1.20); Total Protein 7.1 g/dL (6.2-8.2)
[2021-10-02 20:33] LABS: Basophils # (A) 0.12 X 10*3/uL (0.00-0.10); Basophils % (A) 0.7 %; Eosinophils # (A) 5.69 X 10*3/uL (0.04-0.35); Eosinophils % (A) 31.8 %; Immature Grans, Automated 0.3 %; Lymphocytes # (A) 4.77 X 10*3/uL (0.90-5.00); Lymphocytes % (A) 26.6 %; Monocytes # (A) 0.93 X 10*3/uL (0.20-1.00); Monocytes % (A) 5.2 %; Neutrophils # (A) 6.34 X 10*3/uL (1.80-7.70); Neutrophils % (A) 35.4 %
[2021-10-02 20:34] LABS: RBC Morphology NORMAL
== END | disposition home or self-care (01) ==
LOC: LABWHC1 09:56
PROVIDERS: ATTEND Psychiatry & Neurology Neurology
DX: G35 Multiple sclerosis (principal); E55.9 Vitamin D deficiency, unspecified; E53.9 Vitamin B deficiency, unspecified; R53.83 Other fatigue; M12.9 Arthropathy, unspecified; R53.1 Weakness
CPT/HCPCS: 36415; 80053; 82306; 82607; 84207; 85025

== ENCOUNTER → 2022-02-15 | Outpatient (CLI) | payer MEDICARE, OTHER ==
--- NOTE | 2022-02-19 06:31 | MM ---
Reason for Exam: Screening (asymptomatic). Last mammogram was performed 1 year(s) and 1 month(s) ago. Patient History: Menarche at age 9. First Full-Term at age 33. Late child-bearing (after 30). Hormonal Contraceptives for 1 year from age 17 until age 18. Benign Excisional Biopsy on the left side. Maternal aunt had breast cancer, age 70. Maternal aunt had breast cancer at or over age 50. Risk Values: Berenice 5 year model risk: 2.0%. NCI Lifetime model risk: 14.7%. Prior Study Comparison: 04/10/2015 Bilateral Diagnostic Mammogram, [facility]. 07/19/2016 Bilateral Screening Mammogram, [facility]. 02/12/2021 Bilateral Diagnostic Mammogram, [facility]. Tissue Density: The breast tissue is heterogeneously dense. This may lower the sensitivity of mammography. Findings: Analyzed By CAD. There are several scattered benign-appearing round and dystrophic calcifications throughout bilateral breasts. Some increase in number from older studies. There is no suspicious new group of microcalcifications or new suspicious mass in either breast. Overall Assessment: Benign, BI-RAD 2 Management: Screening Mammogram of both breasts in 1 year. A clinical breast exam by your physician is recommended on an annual basis and results should be correlated with mammographic findings. Electronically signed and approved by: Brice Kimble M.D.
== END | disposition home or self-care (01) ==
LOC: RADMAMWWP 14:18
PROVIDERS: ATTEND Surgery
DX: Z12.31 Encounter for screening mammogram for malignant neoplasm of breast (principal); Z80.3 Family history of malignant neoplasm of breast; Z98.890 Other specified postprocedural states
CPT/HCPCS: 77063; 77067

== ENCOUNTER → 2022-03-08 | Outpatient (CLI) | payer OTHER ==
--- NOTE | 2022-03-08 09:57 | USB ---
Reason for Exam: Clinical finding. Patient History: Menarche at age 9. First Full-Term at age 33. Late child-bearing (after 30). Hormonal Contraceptives for 1 year from age 17 until age 18. Benign Excisional Biopsy on the left side. Maternal aunt had breast cancer, age 70. Maternal aunt had breast cancer at or over age 50. Risk Values: Berenice 5 year model risk: 2.0%. NCI Lifetime model risk: 14.7%. Technique: Method: Targeted. Prior Study Comparison: 07/19/2016 Bilateral Screening Mammogram, [facility]. 02/12/2021 Bilateral Diagnostic Mammogram, [facility]. 02/15/2022 Bilateral MG 3D screening mammo w/cad, [facility]. Findings: The upper outer quadrant of the left breast, the axilla of the left breast and the retroareolar of the left breast were scanned. Limited left breast ultrasound in radial/antiradial approach examining 12:00 to 3:00, retroareolar, and left axillary regions. No solid or cystic masses are identified.. Overall Assessment: Negative, BI-RAD 1 Management: Screening Mammogram of both breasts in 1 year. A clinical breast exam by your physician is recommended on an annual basis and results should be correlated with mammographic findings. Electronically signed and approved by: Vega Ferrara D.O.
== END | disposition home or self-care (01) ==
LOC: RADUSWWP 09:15
PROVIDERS: ATTEND Surgery
DX: N63.20 Unspecified lump in the left breast, unspecified quadrant (principal); Z80.3 Family history of malignant neoplasm of breast

== ENCOUNTER → 2022-03-08 | Outpatient (CLI) | payer OTHER ==
[2022-03-08 08:51] VITALS: BP 105/71; PULSE 90; RESP 16; TEMP 98
--- NOTE | 2022-03-08 09:10 | P.PN ---
Subjective Progress Note Date: 03/08/22 Principal diagnosis: fibrocystic breast disease/prior left breast abscesses Manjula is a 51-year-old white female status post I&D of an abscess in her left breast on 6720. She has no new lumps masses or nodules of concern in either breast. She is not complaining of any fever or chills. She has had left breast abscess drainage on multiple occasions. At this time she is not complaining of any lumps passed through nodules in either breast. She has no recent history of any breast trauma or recent breast abscesses. She had a bilateral mammogram and 9221. This was benign BIRADS 2 and was personally reviewed. Caffiene: 1/day nicotine: 1/2 PPD chocolate: occasional BCP: 2 years prior to 19 Family History: 2 maternal aunts: breast cancer paternal aunt: melanoma Past surgical history: I&D left breast abscess 5 2. Brain surgery cyst 3. foot surgery 4. D&C 5. Hand surgery Medical history: 1. MS 2. Diabetes 3. DJD 4. psoriasis History: Menarche: 12 1 and 2, breast fed ES, age of first 33 Menopause: Patient still having menstrual periods less. One month ago With control pills: Negative Lungs: Negative Social history: Smoke 1 pack per day for 30 years Alcohol: Rare Drugs: Negative - Constitutional Constitutional: Reports as per HPI - EENT Eyes: bilateral as per HPI - Breasts Breasts: bilateral: as per HPI - Cardiovascular Cardiovascular: Denies chest pain, Denies shortness of breath - Respiratory Comment: smoker - Gastrointestinal Gastrointestinal: Reports diarrhea - Genitourinary (Female) Genitourinary: Reports kidney stones - Menstruation Menstruation: Reports premenarcheal - Musculoskeletal Comment: Degenerative disc disease - Integumentary Comment: erythema and swelling around the left nipple areolar region - Neurological Neurological: Denies numbness, Denies weakness - Endocrine Comment: diabetes - Allergic/Immunologic Allergic/Immunologic: Reports as per HPI Objective - Vital Signs Vital signs: Vital Signs Temp 98.0 F 03/08/22 08:48 Pulse 90 03/08/22 08:48 Resp 16 03/08/22 08:48 BP 105/71 03/08/22 08:48 Pulse Ox 96 03/08/22 08:48 FiO2 Intake & Output 03/07/22 03/08/22 03/08/22 18:59 06:59 18:59 Weight 89.811 kg - Exam BMI: 30.1 - Constitutional General appearance: Present: cooperative - EENT Eyes: Present: EOMI ENT: Present: hearing grossly normal - Neck Neck: Present: normal ROM - Respiratory Respiratory: bilateral: CTA - Cardiovascular Rhythm: regular Heart sounds: normal: S1, S2 - Integumentary Integumentary: Present: normal turgor - Musculoskeletal Musculoskeletal: Present: gait normal - Psychiatric Psychiatric: Present: A&O x's 3, appropriate affect, intact judgment & insight - Additional findings Additional findings: Breast Exam: BRA: 40D Inspection: Bilateral grade 3 ptosis, surgical scarring left breast related to prior abscess drainage Palpation: Right breast: Mild positional exam fibrocystic changes no dominant masses or nodules of concern Right axilla: No adenopathy of concern Left breast: Was positional exam fullness upper-outer quadrant which is asymmetric to the right side is extends towards the axilla Left axilla: No adenopathy of concern Fungal infection to both breast Assessment and Plan Assessment: Impression: Fibrocystic breast changes Recent bilateral screening mammogram 9222 benign BIRADS 2 Physical examination increased fullness left breast upper outer quadrant asymmetric to the right breast. Ultrasound of this area High risk evaluation patient declined chemoprevention Fungal infection under both breasts Plan: Nystatin to affected areas Lateral mammogram in 1 year Ultrasound left breast upper outer quadrant extending to the axilla for area of asymmetric fullness Follow-up in 6 months if ultrasound is negative CC: Dr. Mistry
== END ==
LOC: WWCWWP 08:36
PROVIDERS: ATTEND Surgery
DX: N60.11 Diffuse cystic mastopathy of right breast (principal); N64.89 Other specified disorders of breast; B36.8 Other specified superficial mycoses; E11.9 Type 2 diabetes mellitus without complications; F17.210 Nicotine dependence, cigarettes, uncomplicated; Z88.5 Allergy status to narcotic agent; Z91.048 Other nonmedicinal substance allergy status; Z88.1 Allergy status to other antibiotic agents

== ENCOUNTER → 2022-09-12 | Outpatient (CLI) | payer MEDICARE, OTHER ==
--- NOTE | 2022-09-12 12:59 | CTL ---
EXAMINATION TYPE: CT Low Dose Lung DATE OF EXAM ORDERED: 09/12/2022 HISTORY: Personal tobacco use. Lung cancer screening CT DLP: 138.[address] CTDI: 4.3 mGy Automated exposure control for dose reduction was used. SCREENING VISIT: Initial COMPARISON: None TECHNIQUE: Low dose computed tomography scan was performed through the chest at 1 mm thick sections a nd reconstructed images in the coronal plane at [address] DIAGNOSTIC QUALITY: Satisfactory FINDINGS: LUNG NODULES: Present, detailed below: 1. There is a punctate peripheral density in the left apex laterally. Series 3 image 26. 2. A 0.3 cm peripheral density lateral left upper lung field. Series 3 image 46. 3. A 0.4 cm posterior lateral right lung apex density measuring 0.4 cm. Series 3 image 46. 4. A peripheral punctate density anterolateral right upper lung field. Series 3 image 64. 5. A punctate density in the periphery of the right upper lung field. Series 3 image 70. 6. A 0.2 cm peripheral right anterolateral upper lobe nodule. Series 3 image 75. LUNGS: COPD: Severity: None Fibrosis: Severity: None Lymph nodes: Other findings: None RIGHT PLEURAL SPACE: Effusion: None Calcification: None Thickening: None Pneumothorax: None LEFT PLEURAL SPACE: Effusion: None Calcification: None Thickening: None Pneumothorax: None HEART: Heart Size: Normal Coronary calcification: None Pericardial effusion: None OTHER FINDINGS: Upper abdomen: Normal Bony thorax: Normal Supraclavicular region: Normal Other: Ascending thoracic aorta at the level the main pulmonary artery measures 3.6 cm. The main pul monary artery at the bifurcation measures 2.6 cm. IMPRESSION: No cysts or suspicious enlarged nodularity. Multiple small nodules are present. Short-ter m follow-up in 6 months is recommended. FOLLOW UP CT CHEST RECOMMENDATION: Follow up CT chest 6 month s with contrast CT LUNG RAD: Lung-Rad 3 Probably Benign
== END | disposition home or self-care (01) ==
LOC: RADCTMAIN 06:24
PROVIDERS: ATTEND Family Medicine
DX: Z12.2 Encounter for screening for malignant neoplasm of respiratory organs (principal); F17.210 Nicotine dependence, cigarettes, uncomplicated; R91.8 Other nonspecific abnormal finding of lung field
CPT/HCPCS: 71271

== ENCOUNTER → 2022-12-30 | Outpatient (CLI) | payer OTHER ==
[2022-12-30 16:18] LABS: ALT 12 U/L (8-44); AST 17 U/L (13-35); Albumin/Globulin Ratio 1.85 Ratio (1.60-3.17); Alkaline Phosphatase 78 U/L (41-126); BUN/Creat Ratio 11.38 Ratio (12.00-20.00); Blood Urea Nitrogen 9.1 mg/dL (9.0-27.0); Calcium 10.1 mg/dL (8.7-10.3); Carbon Dioxide 26.2 mmol/L (21.6-31.8); Chloride 93 mmol/L (96-109); Globulin 2.7 d/dL (1.6-3.3); Glucose 129 mg/dL (70-110); Sodium 131 mmol/L (135-145); T4, Free (Free Thyroxine) 0.93 ng/dL (0.80-1.80); Total Bilirubin 0.3 mg/dL (0.3-1.2); Total Protein 7.7 d/dL (6.2-8.2)
[2022-12-30 16:46] LABS: Basophils # (A) 0.12 X 10*3/uL (0.00-0.10); Basophils % (A) 0.6 %; Eosinophils # (A) 4.79 X 10*3/uL (0.04-0.35); Eosinophils % (A) 25.9 %; HCT 42.5 % (37.2-46.3); HGB 14.3 d/dL (12.0-15.0); Lymphocytes # (A) 4.25 X 10*3/uL (0.90-5.00); MCHC 33.6 d/dL (32.0-37.0); MCV 86.2 FL (80.0-97.0); Mean Platelet Volume 9.5 FL (9.5-12.2); Monocytes # (A) 1.11 X 10*3/uL (0.20-1.00); NRBC Per 100 WBC 0.03 X 10*3/uL (0.00-0.01); Neutrophils # (A) 8.07 X 10*3/uL (1.80-7.70); Neutrophils % (A) 43.7 %; Platelet Count 344 X 10*3/uL (140-440); RBC 4.93 X 10*6/uL (4.10-5.20); RBC Morphology Normal (Normal); RDW 16.5 % (11.5-14.5); WBC 18.49 X 10*3/uL (4.50-10.00)
== END | disposition home or self-care (01) ==
LOC: LABWHC1 09:38
PROVIDERS: ATTEND Psychiatry & Neurology Neurology
DX: E55.9 Vitamin D deficiency, unspecified (principal); E53.9 Vitamin B deficiency, unspecified; G35 Multiple sclerosis; R42 Dizziness and giddiness; R53.83 Other fatigue
CPT/HCPCS: 36415; 80053; 82306; 82607; 84207; 84439; 84443; 84480; 85025

== ENCOUNTER → 2023-02-18 | Outpatient (CLI) | payer MEDICARE ==
--- NOTE | 2023-02-19 08:38 | MM ---
Reason for Exam: Screening (asymptomatic). Last screening mammogram was performed 12 month(s) ago. Patient History: Menarche at age 9. First Full-Term at age 33. Late child-bearing (after 30). Patient has history of breast feeding. Hormonal Contraceptives for 1 year from age 17 until age 18. Benign Excisional Biopsy on the left side. Maternal aunt had breast cancer, age 70. Maternal aunt had breast cancer at or over age 50. Risk Values: Berenice 5 year model risk: 2.0%. NCI Lifetime model risk: 14.5%. Prior Study Comparison: 04/10/2015 Bilateral Diagnostic Mammogram, [facility]. 07/19/2016 Bilateral Screening Mammogram, [facility]. 02/12/2021 Bilateral Diagnostic Mammogram, [facility]. 02/15/2022 Bilateral MG 3D screening mammo w/cad, [facility]. Tissue Density: The breast tissue is heterogeneously dense. This may lower the sensitivity of mammography. Findings: Analyzed By CAD. There is no suspicious group of microcalcifications or new suspicious mass in either breast. Benign-appearing calcifications within both breasts. Some have increased from prior examination. Overall Assessment: Benign, BI-RAD 2 Management: Screening Mammogram of both breasts in 1 year. A clinical breast exam by your physician is recommended on an annual basis and results should be correlated with mammographic findings. Note on Berenice scores and lifetime risk: 1. A Berenice score greater than 3% is considered moderate risk. If this is the case, consider specialist referral to assess eligibility for a risk reducing agent. If overall lifetime risk for the development of breast cancer is 20% or higher, the patient may qualify for future screening with alternating mammogram and breast MRI. Electronically signed and approved by: Vega Ferrara D.O.
== END | disposition home or self-care (01) ==
LOC: RADMAMWWP 07:46
PROVIDERS: ATTEND Surgery
DX: Z12.31 Encounter for screening mammogram for malignant neoplasm of breast (principal); Z80.3 Family history of malignant neoplasm of breast
CPT/HCPCS: 77063; 77067

== ENCOUNTER → 2023-03-21 | Outpatient (CLI) | payer MEDICARE ==
[2023-03-21 14:57] LABS: African American GFR (CKD) >90 (>60 ml/min/1.73 sqM); Blood Urea Nitrogen 8 mg/dL (7-17); Non-African American GFR(CKD) >90 (>60 ml/min/1.73 sqM)
--- NOTE | 2023-03-25 19:22 | CT ---
EXAMINATION TYPE: CT chest wo/w con DATE OF EXAM: 03/21/2023 COMPARISON: 09/12/2022 HISTORY: 52-year-old female R9 1.1, Lung nodule on unspecified lung TECHNIQUE: Contiguous axial scanning of the chest before and after the administration of 100 ml mL of Isovue 300. Coronal/sagittal reconstructions performed. CT DLP: 1075.5mGycm. Automatic exposure control utilized for a dose reduction. FINDINGS: Heart normal size without pericardial effusion. Prominent but nonenlarged 8 mm lower right paratracheal node. No thoracic lymphadenopathy by CT size criteria. There is mild diffuse bronchial wall thickening. Some streaky scarring or atelectasis in the lower lico ngs. A couple scattered punctate 4 mm and smaller pulmonary nodules are redemonstrated. Some of these are not as well seen due to conventional CT technique. No enlarging pulmonary nodules are identified . Visualized upper abdomen shows no gross abnormality. Bone mild degenerative disc disease throughout the thoracic spine. IMPRESSION: 1. Stable scattered punctate pulmonary nodules measuring 4 mm and smaller. No new or enlarging pulmon anthony nodules are identified. Findings suggest a benign etiology. Patient can return to annual low-dose lung cancer screening CT. 2. Some bronchial wall thickening suggests bronchitis or chronic asthma.
== END | disposition home or self-care (01) ==
LOC: RADCTMAIN 13:54
PROVIDERS: ATTEND Family Medicine
DX: J98.09 Other diseases of bronchus, not elsewhere classified (principal); R91.8 Other nonspecific abnormal finding of lung field
CPT/HCPCS: 82565; 84520; 71270; 36415; Q9967

== ENCOUNTER → 2024-12-01 | Outpatient (CLI) | payer MEDICARE ==
--- NOTE | 2024-12-01 13:50 | MM ---
Reason for Exam: Screening (asymptomatic). Last mammogram was performed 1 year(s) and 9 month(s) ago. Patient History: Menarche at age 9. First Full-Term at age 33. Late child-bearing (after 30). Patient has history of breast feeding. Hormonal Contraceptives for 1 year from age 17 until age 18. Benign Excisional Biopsy on the left side. Maternal aunt had breast cancer, age 70. Maternal aunt had breast cancer at or over age 50. Risk Values: Berenice 5 year model risk: 2.2%. NCI Lifetime model risk: 13.9%. Prior Study Comparison: 02/12/2021 Bilateral Diagnostic Mammogram, [facility]. 02/15/2022 Bilateral MG 3D screening mammo w/cad, [facility]. 02/18/2023 Bilateral MG 3D screening mammo w/cad, [facility]. Tissue Density: There are scattered areas of fibroglandular density. Findings: Analyzed By CAD. Calcifications upper outer quadrant right breast have increased. Further magnification views are recommended. These appear to be very superficial on the MLO view. Other scattered benign round and punctate calcifications are unchanged. Areas of asymmetric density are unchanged. No significant change from prior exams. Overall Assessment: Incomplete: need additional imaging evaluation, BI-RAD 0 Management: Special View Mammogram of the right breast. [facility] will attempt to contact patient to return for supplemental views and ultrasound if indicated. [facility], , 12/01/2024 1:47 PM. Electronically signed and approved by: Pina Acuña M.D. Radiologist
== END | disposition home or self-care (01) ==
LOC: RADMAMWWP 09:18
PROVIDERS: ATTEND Family Medicine
DX: Z12.31 Encounter for screening mammogram for malignant neoplasm of breast (principal); R92.323 Mammographic fibroglandular density, bilateral breasts; Z92.0 Personal history of contraception; Z80.3 Family history of malignant neoplasm of breast
CPT/HCPCS: 77063; 77067

== ENCOUNTER → 2024-12-07 | Outpatient (CLI) | payer MEDICARE ==
--- NOTE | 2024-12-07 10:58 | MM ---
Reason for Exam: Additional evaluation requested from abnormal screening. Last screening mammogram was performed less than 1 month ago. Patient History: Menarche at age 9. First Full-Term at age 33. Late child-bearing (after 28). Patient has history of breast feeding. Hormonal Contraceptives for 1 year from age 17 until age 18. Benign Excisional Biopsy on the left side. Maternal aunt had breast cancer, age 70. Maternal aunt had breast cancer at or over age 50. Risk Values: Berenice 5 year model risk: 2.2%. NCI Lifetime model risk: 13.9%. Tissue Density: Right: There are scattered areas of fibroglandular density. Findings: Analyzed By CAD. Calcifications are coarse large. No suspicious calcifications identified. No new suspicious masses or distortions. Overall Assessment: Benign, BI-RAD 2 Management: Screening Mammogram of both breasts in 1 year. Results were given to the patient verbally at the time of exam. Patient should continue monthly self-breast exams. A clinical breast exam by your physician is recommended on an annual basis. This exam should not preclude additional follow-up of suspicious palpable abnormalities. Note on Berenice scores and lifetime risk: 1. A Berenice score greater than 3% is considered moderate risk. If this is the case, consider specialist referral to assess eligibility for a risk reducing agent. 2. If overall lifetime risk for the development of breast cancer is 20% or higher, the patient may qualify for future screening with alternating mammogram and breast MRI. [facility], , 12/07/2024 10:36 AM. Electronically signed and approved by: Ignacio Romo DO
== END | disposition home or self-care (01) ==
LOC: RADMAMWWP 10:14
PROVIDERS: ATTEND Family Medicine
DX: R92.8 Other abnormal and inconclusive findings on diagnostic imaging of breast (principal); R92.331 Mammographic heterogeneous density, right breast; Z80.3 Family history of malignant neoplasm of breast; Z92.0 Personal history of contraception
CPT/HCPCS: 77061; 77065